=== PATIENT | male | born 1960 | race Caucasian/White ===

== ENCOUNTER 2020-01-18 23:21 | Observation (INO) | payer MEDICARE ==
[2020-01-19] MEDS ORDERED: Fentanyl 100 MCG/2 ML VIAL ONE (00:18)
[2020-01-19 01:20] LABS: Troponin I Less than 0.010 ng/mL (< 0.028)
[2020-01-19 05:11] LABS: Troponin I Less than 0.010 ng/mL (< 0.028)
[2020-01-19 07:52] VITALS: BMI 24.7
[2020-01-19] MEDS ORDERED: Nitroglycerin 0.4 MG TAB (25 Tab Bottle) SL PRN (08:41)
[2020-01-19] MEDS ORDERED: Atorvastatin Calcium 40 MG TAB PO SCH (09:00)
[2020-01-19] MEDS ORDERED: Lisinopril 20 MG TAB PO SCH (09:00)
[2020-01-19] MEDS ORDERED: Carvedilol 25 MG TAB PO SCH (09:00)
[2020-01-19] MEDS ORDERED: Aspirin 81 mg Enteric Coated Tablet PO SCH (09:00)
[2020-01-19 09:02] LABS: Hemoglobin 13.4 g/dL (14.0-18.0); Mean Corpuscular HGB CONC 32.9 g/dL (32.0-36.0); Mean Corpuscular Hemoglobin 30.6 pg (27.0-31.0); Mean Platelet Volume 6.7 fL (7.4-10.4); Platelet Count 313 thou/uL (130-400); RBC Distribution Width 12.2 % (11.5-14.5); Red Blood Cell (RBC) Count 4.38 mill/uL (4.70-6.10); White Blood Cell (WBC) Count 8.7 thou/uL (4.8-10.8)
[2020-01-19] MEDS: Gabapentin 300 MG CAP PO SCH ×2 (09:18→12:51)
[2020-01-19] MEDS: oxyCODONE 5 MG TAB PO PRN ×2 (09:19→13:35)
[2020-01-19 09:20] LABS: Anion Gap 11 mmol/L (10-20); BUN (Urea Nitrogen) 26 mg/dL (8.4-25.7); Calc. Creatinine Clearance 110 mL/min (70-130); Calcium 8.5 mg/dL (7.8-10.44); Carbon Dioxide 26 mmol/L (22-29); Chloride 106 mmol/L (98-107); Estimated GFR-MDRD Greater than 90; Glucose 90 mg/dL (70-105); Potassium 3.9 mmol/L (3.5-5.1); Sodium 139 mmol/L (136-145)
[2020-01-19 09:51] LABS: Band 2 % (5-11); Eosinophils 4 % (0-10); Lymphocytes 23 % (21-51); MDiff Complete? YES; Monocytes 5 % (0-10); Neutrophil 66 % (42-75); RBC Morphology Normal
--- NOTE | 2020-01-19 12:47 | NM ---
Radionucleotide stress and rest myocardial perfusion scan with CT attenuation correction and SPECT im aging Left ventricular wall motion evaluation and ejection fraction HISTORY: Chest pain. Prior [place]. FINDINGS: Adenosine protocol. Very heterogeneous uptake of radiotracer throughout the left ventricula r myocardium. A large area of prominently diminished radiotracer uptake involves the septal wall, extending to the anterior and inferior alamo, on the stress images. Rest images show the defect to be at least as large. No significant reversibility. QGS analysis of gated SPECT images shows diminished motion and thickening of the septum extending to the anterior and inferior alamo. Ejection fraction calculated at 50%. IMPRESSION: Large area of scar involving the septum with no scintigraphic evidence of ongoing ischemi a. Borderline LVEF of 50%.
--- NOTE | 2020-01-19 14:15 | HP ---
CHIEF COMPLAINT: Chest pain. HISTORY OF PRESENT ILLNESS: This is a 59-year-old male with past medical history of hypertension; hyperlipidemia; coronary artery disease, status post stent placement 10 years ago; history of gastroesophageal reflux disease with Simpson esophagus; and history of neck surgery, who presented to the emergency department with complaints of central chest pressure radiating to his left arm and left neck that started yesterday and persisted until his arrival to the ER. The patient received nitroglycerin, which eased up the pain, but did not eliminate it completely. The patient denies shortness of breath, palpitations, dizziness, or syncope. He denies any cardiac workup or stress test within the past year. REVIEW OF SYSTEMS: Negative except as noted in HPI. PAST MEDICAL HISTORY: Restless legs syndrome; Simpson esophagus with GERD; coronary artery disease, status post stent; hyperlipidemia; and hypertension. PAST SURGICAL HISTORY: Neck, shoulder, and hip surgeries. SOCIAL HISTORY: The patient drinks socially, smokes cannabis, and does not smoke any cigarettes. FAMILY HISTORY: Negative for personal history to current presentation. PHYSICAL EXAMINATION: GENERAL: The patient is alert and oriented x3. HEENT: Head is normocephalic and atraumatic. Extraocular muscles are intact. Pupils are equal and reactive to light. NECK: Supple. HEART: Revealed normal S1 and S2. Regular rate and rhythm. No murmurs, rubs, or gallops. LUNGS: Clear lung chou bilaterally. ABDOMEN: Soft, nontender, and nondistended. Bowel sounds are positive. NEUROLOGIC: Revealed normal cranial nerves 2 through 12 and unremarkable motor and sensory examination. LABORATORY DATA: Two troponins were drawn and were negative. EKG showed right bundle-branch block with lateral T-wave inversions without ST-T elevations or depressions. Chest x-ray was clear. IMPRESSION AND PLAN: 1. Chest pain, rule out acute coronary syndrome. The patient with history of coronary artery disease and risk factors with hypertension and hyperlipidemia. His HEART score is 6, correlating with the risk of MACE of 12% to 16.6%. Start aspirin 162 mg, atorvastatin 40 mg orally daily, carvedilol 25 mg orally twice daily, lisinopril 20 mg orally daily in addition to nitroglycerin 0.4 mg sublingual q.5 minutes as needed for pain. The patient will undergo a nuclear stress test today. 2. Hypertension. 3. Hyperlipidemia. 4. Restless legs syndrome. 5. Simpson esophagus. Job ID: [id number]
[2020-01-19] MEDS ORDERED: ADENOSINE 60 MG/20 ML VIAL ONE (15:25)
[2020-01-19 16:21] VITALS: BP 114/74; TEMP 98
--- NOTE | 2020-01-19 17:21 | CON ---
DATE OF CONSULTATION: 01/19/2020 INDICATIONS FOR CONSULTATION: A 59-year-old gentleman with history of coronary artery disease, who has undergone angioplasty and stent placement in the past about 2009. He then underwent a repeat cardiac catheterization, I believe, a couple years later, and apparently, the stent was patent, but he did have some plaque in another vessel according to the . We do not have those records. He has a cardiac catheterization and further angioplasty was done either in [place] or [place]. We do not have those records available. According to his family, he also has a history of Simpson esophagus, esophageal disease, and has gastroesophageal reflux disease. According to the , he has had about 40 hospitalizations or ER visits within the last 5 years due to similar pain that he presented with today with chest discomfort and also some pain radiating down to the left arm. His 1st myocardial infarction occurred after he had eaten a meal, this was back in 2009. He walked outside and he said he just went to his knees, felt dizzy, and went to his knees, nauseated, and was taken to the emergency room, was found to have a myocardial infarction. It is possible he did have some ventricular tachycardia, it is uncertain of what happened, but he did undergo what sounds as if he did have an angioplasty and stent placed at that time. After evaluation of the stress test, which was performed today, there is no evidence of ischemia and the cardiac enzymes are unremarkable to indicate any evidence of ischemia or myocardial infarction. It is quite possible he did have a stent in the distal left anterior descending artery as there appears to be a scar in the septal area and most likely the distal anterior wall, which also involves and wraps around to the inferior wall of the left ventricle. At this time, he still continues to have some mild discomfort in his arm, but otherwise as he wants to go home and I suggest that he could have further evaluation as an outpatient since this has been an ongoing problem for years, he also needs to see a transit coach operator, I believe he is set up some type of an appointment already with [facility], but may change that to a different facility. Otherwise, he has been doing relatively well and has had no significant changes. He has had no significant shortness of breath or any other associated abnormalities with the chest discomfort. He describes it at times as being sharp, but then also dull pain and then certainly radiating to the left arm. He continues to have some mild left arm discomfort. However, he has had some injuries in the past. He has had spina bifida, which required repair. As he has some fractures, he has also had some neck fractures, so it is unclear whether or not some of this pain in the arm may not be due to some radiation, due to nerve problems. PAST MEDICAL HISTORY: Significant for: 1. Simpson's esophagus. 2. Gastroesophageal reflux disease. 3. Coronary artery disease status post stent placement. 4. Hypertension. 5. Dyslipidemia. 6. He also has some history of restless legs syndrome. 7. He has had multiple back surgeries. 8. He has had neck surgery also. 9. Had hip surgery, he apparently fell and broke his hip. SOCIAL HISTORY: He occasionally smokes marijuana. He drinks socially. He has no history in the past. No significant cigarette abuse. FAMILY HISTORY: Unremarkable to the present situation. REVIEW OF SYSTEMS: Mainly is negative except what is noted in the history of present illness. He has moved here. He still stays at home. He subsequently is disabled. He takes care of things in the house and does not have any significant discomfort in doing so, but does occasionally become short of breath. PHYSICAL EXAMINATION: GENERAL: A well-developed, well-nourished gentleman who at this time is in no acute distress. He is very pleasant. He is oriented. VITAL SIGNS: Stable. He is afebrile. Heart rate is in the 60s to 70s and it shows a sinus rhythm, respiratory rate is about 16, and blood pressure is 124/73. HEENT: Shows the head to be normocephalic and atraumatic. NECK: Carotid pulses are present. Did not hear any bruits. CHEST: Clear to auscultation without rales, rhonchi, or wheezing. CARDIOVASCULAR: Regular rate and rhythm. I did not hear any significant S3 or S4. There were no significant murmurs, heaves, thrills, bruits, or rubs. ABDOMEN: Soft and nontender. Positive bowel sounds are present. EXTREMITIES: No clubbing, cyanosis, or edema. Pedal pulses are present. Radial pulses are present. NEUROLOGIC: He appears to be intact. DIAGNOSTIC STUDIES: His EKG showed a sinus rhythm with a right bundle-branch block with some nonspecific T-wave inversions, which may be due to the right bundle-branch block, but otherwise is unremarkable. His stress test did show evidence of a previous scar, most likely due to the previous myocardial infarction, but no evidence of ischemia. His echocardiogram was ordered, but is still pending, but ejection fraction by nuclear study was in the 50% to 55% range, which would not be bad considering the patient had a previous myocardial infarction. IMPRESSION: Elderly gentleman with history of coronary artery disease and multiple episodes of chest discomfort. I have given him the option to proceed with cardiac catheterization versus of being followed up as an outpatient and to see if the pain persist. He actually desires to go home and will see me in the office. He is very aware of his situation and also the pain. He has had this pain for many years now on and off and there does not appear to be any significant change from his previous admissions. Also, one of the issues was he had ran out of his nitroglycerin or actually had became washed in the washing machine and he did not have any further nitroglycerin. Some of his pain has been relieved by nitroglycerin in the past, but obviously some smooth muscle also has relieved by nitroglycerin, which may be some of esophageal spasm. I will make sure that he has his nitroglycerin prior to being discharged. Otherwise, for his other medical problems, which he dealt with by the primary care service, I would be happy to see the patient back in the office, but would advise he go home with the nitroglycerin and follow up as an outpatient. Since the stress test is negative and enzymes also have remained negative, he does not appear to be anemic and renal function also is normal. Job ID: [id number]
[2020-01-19] MEDS ORDERED: rOPINIRole HCl 0.5 MG TAB PO SCH (21:00)
--- NOTE | 2020-01-20 02:37 | DIS ---
DATE OF ADMISSION: 01/19/2020 DATE OF DISCHARGE: 01/19/2020 HISTORY OF PRESENT ILLNESS AND HOSPITAL COURSE: This is a 59-year-old male with past medical history of hypertension, hyperlipidemia, coronary artery disease, status post stent placement 10 years ago, and history of GERD with Simpson's esophagus, who presented to the emergency department with complaints of central chest pain radiating to his left arm and left neck area. His initial EKG revealed T-wave inversions laterally and his initial troponins were unremarkable. Cardiology Service consulted and recommended a stress test, which was performed showing no evidence of reversible ischemia. The patient also underwent echocardiogram with the reading pending at the time of discharge. DISCHARGE DIAGNOSES: 1. Chest pain. 2. Hypertension. 3. Hyperlipidemia. 4. Restless legs syndrome. 5. Simpson's esophagus. DISCHARGE MEDICATIONS: 1. Sublingual nitroglycerin 0.4 mg q.5 minutes p.r.n. for chest pain, maximum 3 doses. 2. Aspirin 81 mg orally twice daily. 3. Atorvastatin 40 mg orally daily. 4. Carvedilol 25 mg orally twice daily. 5. Gabapentin 300 mg orally 4 times a day. 6. Lisinopril 20 mg orally daily. 7. Ropinirole 0.4 mg orally nightly. 8. Oxycodone immediate release 10 mg orally q.4 hours as needed for pain. DISCHARGE INSTRUCTIONS: The patient was instructed to follow up with his family doctor within 1 week. Cardiac diet is recommended and exercise as tolerated. Job ID: [id number]
== END 2020-01-19 17:07 | disposition home or self-care (01) ==
LOC: ERS 23:21 → ERHOLD 01-19 00:10 → 2SW 01-19 00:10
PROVIDERS: ADMIT Internal Medicine; ATTEND Internal Medicine
DX: R07.89 Other chest pain (principal); I10 Essential (primary) hypertension; E78.5 Hyperlipidemia, unspecified; G25.81 Restless legs syndrome; K22.70 Barrett's esophagus without dysplasia; I25.10 Atherosclerotic heart disease of native coronary artery without angina pectoris; K21.9 Gastro-esophageal reflux disease without esophagitis; I25.2 Old myocardial infarction; F32.9 Major depressive disorder, single episode, unspecified; I45.10 Unspecified right bundle-branch block; Z79.82 Long term (current) use of aspirin; Z79.899 Other long term (current) drug therapy; Z88.8 Allergy status to other drugs, medicaments and biological substances; Z95.5 Presence of coronary angioplasty implant and graft
CPT/HCPCS: 78452; 80048; 84484 ×2; 85007; 85027; 93005; 93017; 93306; 96374; 99285; A9500; G0378 ×2; 36415; J0153; J3010

== ENCOUNTER 2020-01-24 14:47 | Observation (INO) | payer MEDICARE ==
[2020-01-24] MEDS ORDERED: Nitroglycerin 2% Ointment 1 INCH/1 GM Packet ONE (15:05)
[2020-01-24 15:18] LABS: #Eosinphils 0.6 thou/uL (0.0-0.7); #Lymphocytes 2.1 thou/uL (1.20-3.40); #Monocytes 0.7 thou/uL (0.11-0.59); #Neutrophils 5.5 thou/uL (1.40-6.50); %Basophils 0.4 % (0.0-1.0); %Eosinophils 6.2 % (0.0-10.0); %Lymphocytes 23.9 % (21.0-51.0); %Monocytes 7.5 % (0.0-10.0); Hemoglobin 15.4 g/dL (14.0-18.0); Mean Corpuscular HGB CONC 32.8 g/dL (32.0-36.0); Mean Corpuscular Hemoglobin 30.6 pg (27.0-31.0); Mean Corpuscular Volume 93.3 fL (78.0-98.0); Mean Platelet Volume 7.2 fL (7.4-10.4); Platelet Count 368 thou/uL (130-400); RBC Distribution Width 12.2 % (11.5-14.5); Red Blood Cell (RBC) Count 5.04 mill/uL (4.70-6.10); White Blood Cell (WBC) Count 8.9 thou/uL (4.8-10.8)
[2020-01-24] MEDS ORDERED: Ondansetron PF 4 MG/2 ML Vial ONE (15:38)
[2020-01-24] MEDS ORDERED: Morphine 4 MG/ML VIAL ONE (15:38)
[2020-01-24 15:40] LABS: ALT (SGPT) 22 U/L (8-55); AST (SGOT) 21 U/L (5-34); Albumin 4.3 g/dL (3.5-5.0); Alkaline Phosphatase 57 U/L (40-110); Anion Gap 12 mmol/L (10-20); BUN (Urea Nitrogen) 20 mg/dL (8.4-25.7); Bilirubin, Total 0.2 mg/dL (0.2-1.2); Calc. Creatinine Clearance 0 mL/min (70-130); Calcium 9.4 mg/dL (7.8-10.44); Carbon Dioxide 29 mmol/L (22-29); Chloride 101 mmol/L (98-107); Estimated GFR-MDRD 58; Globulin 3.5 g/dL (2.4-3.5); Glucose 104 mg/dL (70-105); Lipase 34 U/L (8-78); Protein, Total 7.8 g/dL (6.0-8.3); Sodium 138 mmol/L (136-145)
--- NOTE | 2020-01-24 15:52 | RAD ---
Chest one view HISTORY: Chest pain. COMPARISON: 01/18/2020. FINDINGS: Cardiac silhouette is magnified by projection. Pulmonary vasculature is unremarkable. Media stinum is midline. Linear scarring at the left base is stable. No lobar consolidation or evidence of pneumothorax. quality assurance monitor chassis leads overlie the chest. IMPRESSION: No active cardiopulmonary abnormalities are demonstrated.
[2020-01-24] MEDS ORDERED: Ondansetron PF 4 MG/2 ML Vial IVP PRN (16:27)
[2020-01-24] MEDS ORDERED: Ondansetron ODT 4 MG TAB PO PRN (16:27)
[2020-01-24] MEDS ORDERED: Acetaminophen 325 MG TAB PO PRN (16:27)
[2020-01-24] MEDS ORDERED: Senokot S 8.6-50 MG TAB PO PRN (16:27)
[2020-01-24] MEDS ORDERED: oxyCODONE 5 MG TAB PO PRN (16:28)
[2020-01-24] MEDS ORDERED: Nitroglycerin 0.4 MG TAB (25 Tab Bottle) SL PRN (16:28)
[2020-01-24] MEDS ORDERED: Aspirin Chewable 81 MG TAB ONE (18:50)
[2020-01-24 19:24] LABS: Troponin I Less than 0.010 ng/mL (< 0.028)
[2020-01-24 20:03] VITALS: BMI 25.7
[2020-01-24] MEDS: rOPINIRole HCl 0.5 MG TAB PO SCH (20:51)
[2020-01-24] MEDS: Gabapentin 300 MG CAP PO SCH ×2 (20:52)
[2020-01-24] MEDS: Carvedilol 25 MG TAB PO SCH (20:52)
[2020-01-24 22:22] LABS: Troponin I Less than 0.010 ng/mL (< 0.028)
[2020-01-24] MEDS ORDERED: hydrALAZINE 20 MG/ML VIAL SLOW IVP PRN (22:27)
[2020-01-24] MEDS ORDERED: Acetaminophen 500 MG TAB PO PRN (22:27)
[2020-01-25] MEDS: oxyCODONE 5 MG TAB PO SCH ×6 (01:02→20:25)
--- NOTE | 2020-01-25 01:41 | HP ---
PRIMARY CARE PROVIDER: Dr. Chandler Mercer. PRIMARY VARNISH FILTERER: Dr. Shawn Mckinley. CHIEF COMPLAINT: Chest pain. HISTORY OF PRESENT ILLNESS: This is a 59-year-old male, who presents to [facility] Emergency Department complaining of recurrent chest pain in the context of known coronary artery disease, status post cardiac stent placement. The patient was recently evaluated on the observation unit on 01/19/2020 for recurrent chest pain, undergoing Cardiolite stress testing showing no evidence of reversible ischemia with evidence of previous scar involving the septum with overall calculated ejection fraction of 50%. 2D transthoracic echocardiogram was also performed on 01/19/2020 showing ejection fraction of 45% to 50% with hypokinesis of the apex, distal septum and distal anterior wall. The patient was slated for outpatient evaluation of his chest pain with consideration for repeat cardiac catheterization due to symptomatology and was discharged home on sublingual nitroglycerin. The patient states he took 2 sublingual nitroglycerin when he had recurrent chest pain with the second dose helping relieve his symptoms. The patient became concerned when the chest pain returned after approximately 40 minutes after the second dose of nitroglycerin and presented to the emergency room. The patient states he has been compliant with his medication regimen. Denied any fever, chills, nausea, vomiting, or diarrhea. The patient does report a history of Simpson's esophagitis with serial surveillance by the GI Service. The patient initially rated his chest pain as 8/10, constant and centrally located. In the emergency room, the patient underwent general evaluation including serial cardiac biomarkers, which were negative x2. EKG showed sinus mechanism with stable complete right bundle branch block pattern. No acute or dynamic ST-T wave changes were noted. The patient received morphine sulfate, transdermal nitroglycerin, Zofran, and intravenous normal saline x1 L. PAST MEDICAL HISTORY: 1. Coronary artery disease, on chronic aspirin therapy. 2. Restless legs syndrome. 3. Simpson's esophagitis. 4. Status post myocardial infarction with cardiac stent placement. 5. Hyperlipidemia. PAST SURGICAL HISTORY: 1. Status post cervical spine surgery. 2. Status post shoulder surgery x6. 3. Status post right hip fracture. 4. Status post carpal tunnel release. 5. Status post bilateral inguinal hernia repair. 6. Status post cardiac stent placement. CURRENT MEDICATIONS: 1. Enteric-coated aspirin 81 mg p.o. b.i.d. 2. Lipitor 40 mg p.o. at bedtime. 3. Carvedilol 25 mg p.o. b.i.d. 4. Gabapentin 600 mg p.o. b.i.d. 5. Lisinopril 20 mg p.o. daily. 6. Oxycodone immediate release 10 mg p.o. q.4 hours p.r.n. pain. 7. Requip 0.5 mg p.o. at bedtime. 8. Venlafaxine extended release 150 mg p.o. daily. 9. Nitroglycerin 0.4 mg sublingually q.5 minutes p.r.n. chest pain. ALLERGIES: FENTANYL AND QUININE. FAMILY HISTORY: Positive for hypertension and coronary artery disease. SOCIAL HISTORY: Occasional marijuana use. Social alcohol use. No cigarettes. Functional of all activities of daily living. Resides in [place], [place]. and accompanied by his in the hospital. REVIEW OF SYSTEMS: CONSTITUTIONAL: Negative for weight loss or gain, ability to conduct usual activities. SKIN: Negative for rash, itching. EYES: Negative for double vision, pain. ENT/MOUTH: Negative for nose bleeding, neck stiffness, pain, tenderness. CARDIOVASCULAR: Negative for palpitations, dyspnea on exertion, orthopnea. RESPIRATORY: Negative for shortness of breath, wheezing, cough, hemoptysis, fever or night sweats. GASTROINTESTINAL: Negative for poor appetite, abdominal pain, heartburn, nausea, vomiting, constipation, or diarrhea. GENITOURINARY: Negative for urgency, frequency, dysuria, nocturia. MUSCULOSKELETAL: Negative for pain, swelling. NEUROLOGIC/PSYCHIATRIC: Negative for anxiety, depression. ALLERGY/IMMUNOLOGIC: Negative for skin rash, bleeding tendency. Otherwise negative except as stated per HPI. PHYSICAL EXAMINATION: VITAL SIGNS: On admission, blood pressure 116/74, pulse 58, respiratory rate 20, temperature 98.4 degrees Fahrenheit, O2 saturation 96% on room air. GENERAL APPEARANCE: This is a 59-year-old male, alert and oriented x3, pleasant, responsive, in no acute distress. HEENT: Pupils are equal, round, reactive to light and accommodation. Extraocular muscles are intact. No scleral icterus. No conjunctival injection. Nares patent. OP is clear. Teeth in good repair. NECK: Supple. No cervical adenopathy. No thyromegaly. No carotid bruits. No JVD appreciated. Cervical spine with full active and passive range of motion. No meningeal signs noted. CHEST: Lungs are clear to auscultation bilaterally. CARDIOVASCULAR: S1, S2 without noted murmur, rub, or gallop. ABDOMEN: Rounded, soft, nontender, and nondistended. Bowel sounds are positive in all 4 quadrants. There is no hepatosplenomegaly. No abdominal bruits. No rebound or guarding appreciated. EXTREMITIES: Warm and dry with fair turgor. No clubbing, cyanosis, or asymmetric edema appreciated. Pulses palpable distally at the dorsalis pedis, posterior tibial, and popliteal arteries bilaterally. Capillary refill less than 2 seconds. NEUROLOGIC: Cranial nerves 2 through 12 are grossly intact. No focal or lateralizing signs appreciated. PERTINENT LABORATORY AND X-RAY FINDINGS: Complete metabolic profile within normal limits. Troponin I negative x2. CBC within normal limits. Portable chest x-ray dated 01/24/2020 showed no acute cardiopulmonary process. EKG dated 01/24/2020 by my interpretation shows a sinus mechanism with heart rates in the 60s. Attenuated R-waves noted in the precordial leads. Right bundle-branch block pattern noted. Normal axis. No acute ST-T wave changes appreciated. ASSESSMENT AND PLAN: 1. Chest pain. The patient will be observed on the telemetry unit. We will consult Cardiology Service for consideration of cardiac catheterization given the patient's history of recurrent chest pain and concern for angina. Continue aspirin 81 mg b.i.d. Serial troponin I. Nitroglycerin p.r.n. chest pain. 2. Coronary artery disease. Continue management as outlined in #1. Continue Lipitor 40 mg daily. Coreg 25 mg b.i.d. 3. Hypertension. Resume home antihypertensive regimen and monitor clinical response. Hydralazine p.r.n. IV. 4. Gastroesophageal reflux disease. Continue Pepcid 20 mg p.o. b.i.d. 5. Hyperlipidemia. Continue Lipitor 40 mg at bedtime. 6. Prophylaxis. SCDs while in bed. Pepcid 20 mg p.o. b.i.d.. CODE STATUS: Full. Surrogate medical decision maker is the patient's spouse. Job ID: [id number]
[2020-01-25 05:24] LABS: Anion Gap 11 mmol/L (10-20); BUN (Urea Nitrogen) 21 mg/dL (8.4-25.7); Calc. Creatinine Clearance 100 mL/min (70-130); Calcium 8.6 mg/dL (7.8-10.44); Carbon Dioxide 26 mmol/L (22-29); Chloride 105 mmol/L (98-107); Estimated GFR-MDRD Greater than 90; Glucose 94 mg/dL (70-105); Potassium 3.7 mmol/L (3.5-5.1); Sodium 138 mmol/L (136-145)
[2020-01-25 05:28] LABS: Eosinophils 6 % (0-10); Hemoglobin 13.4 g/dL (14.0-18.0); Lymphocytes 38 % (21-51); MDiff Complete? YES; Mean Corpuscular HGB CONC 32.7 g/dL (32.0-36.0); Mean Corpuscular Hemoglobin 30.5 pg (27.0-31.0); Mean Corpuscular Volume 93.1 fL (78.0-98.0); Monocytes 6 % (0-10); Neutrophil 50 % (42-75); Platelet Count 311 thou/uL (130-400); Platelet Morphology Comment Appears Adequate; RBC Distribution Width 12.1 % (11.5-14.5); White Blood Cell (WBC) Count 8.5 thou/uL (4.8-10.8)
--- NOTE | 2020-01-25 08:01 | PDOC.CPN ---
- Subjective Date: 01/25/20 Time: 08:03 - Objective Allergies/Adverse Reactions: Allergies Allergy/AdvReac Type Severity Reaction Status Date / Time fentanyl [From Duragesic] Allergy Nausea Verified 01/24/20 22:06 quinine Allergy Nausea Verified 01/24/20 22:06 Visit Medications: Current Medications Acetaminophen (Tylenol) 1,000 mg PO Q6H PRN PRN Reason: Mild Pain (1-3) Aspirin (Ecotrin) 325 mg PO DAILY [facility] Atorvastatin Calcium (Lipitor) 40 mg PO HS [facility] Carvedilol (Coreg) 25 mg PO BID [facility] Last Admin: 01/24/20 20:52 Dose: 25 mg Famotidine (Pepcid) 20 mg PO BID [facility] Gabapentin (Neurontin) 600 mg PO BID [facility] Hydralazine HCl (Apresoline) 10 mg SLOW IVP Q4H PRN PRN Reason: SBP > 180 and HR < 70 Lisinopril (Zestril) 20 mg PO DAILY [facility] Nitroglycerin (Nitrostat) 0.4 mg SL Q5MIN PRN PRN Reason: Chest Pain Ondansetron HCl (Zofran Odt) 4 mg PO Q6H PRN PRN Reason: Nausea/Vomiting Ondansetron HCl (Zofran) 4 mg IVP Q6H PRN PRN Reason: Nausea/Vomiting Oxycodone HCl (Oxycodone Ir) 10 mg PO Q4HR [facility] Last Admin: 01/25/20 05:04 Dose: 10 mg Ropinirole HCl (Requip) 0.5 mg PO [facility] Last Admin: 01/24/20 20:51 Dose: 0.5 mg Senna/Docusate Sodium (Senokot S) 2 tab PO BIDPRN PRN PRN Reason: Constipation Venlafaxine HCl (Effexor Xr) 150 mg PO DAILY [facility] Vital Signs & Weight: Vital Signs Temp Pulse Resp BP Pulse Ox 01/25/20 05:04 97.6 F 71 18 116/79 96 01/24/20 20:20 98.4 F 58 L 20 116/74 96 Weight 164 lb 1.6 oz - Physical Exam General: alert & oriented x3 HEENT: mucus membranes moist Neck: supple neck Cardiac: regular rate and rhythm, S1/S2 Lungs: clear to auscultation Neuro: cranial nerve 2-12 intact Abdomen: unremarkable - Labs Result Diagrams: 01/25/20 04:37 01/25/20 04:37 Troponin/CKMB Troponin I Less than 0.010 ng/mL (< 0.028) 01/24/20 21:49 - Telemetry Sinus rhythms and dysrhythmias: sinus rhythm - Assessment/Plan Assessment/Plan: 1. CP - no ECG changes and trop negative x3; Per last admission, the pt was recommended to have cath by Dr Mckinley. He is willing to have the procedure this time. 2. CAD with s/p stent about 8 years ago in [place] - on Coreg, Lisinopril, ASA and Lipitor 3. HTN 4. HLD 5. Hx of Simpson's esphagus and GERD MAR reviewed * Echo on 01/19/2020 with EF 45-50%, hypokinetic apex, distal septum and distal anterior wall; mild-mod LAE, trace MR, and mild TR * Stress test on 01/19/2020 with no ischemia Pt. seen and eval. by me. I agree with the A/P by the HARDBOARD PRESS OPERATOR. Due to his history of CAD , continued chest pain and multiple hospitalizations despite a negative stress test I suggest he undergo a cardiac cath to definitively evaluate the coronary arteries. [email or web address]
[2020-01-25] MEDS ORDERED: Iopamidol 370 76% 100 ML VIAL ONE (08:59)
[2020-01-25] MEDS ORDERED: Aspirin 81 mg Enteric Coated Tablet PO SCH (09:00)
[2020-01-25] MEDS ORDERED: Communication Order-Pharmacy FS SCH (09:15)
[2020-01-25] MEDS: Carvedilol 25 MG TAB PO SCH ×2 (09:58→20:24)
[2020-01-25] MEDS: Venlafaxine HCl XR 150 MG CAP PO SCH (09:58)
[2020-01-25] MEDS: Famotidine 20 MG TAB PO SCH ×2 (09:58→20:25)
[2020-01-25] MEDS: Aspirin 325 mg Enteric Coated Tablet PO SCH (09:58)
[2020-01-25] MEDS: Lisinopril 20 MG TAB PO SCH (09:59)
[2020-01-25] MEDS: Gabapentin 300 MG CAP PO SCH ×2 (09:59→20:24)
[2020-01-25] MEDS: Sodium Chloride 0.9% 1,000 ML IV SCH ×2 (11:01→22:03)
[2020-01-25] MEDS ORDERED: Nitroglycerin 100MG/250ML BOT 250 ML ONE (11:53)
[2020-01-25] MEDS ORDERED: Heparin 10,000 UNITS/1 ML VIAL ONE (11:53)
[2020-01-25] MEDS ORDERED: Verapamil 5 MG/2 ML VIAL ONE (11:53)
[2020-01-25] MEDS ORDERED: Nitroglycerin 0.4 MG TAB (25 Tab Bottle) SL PRN (13:21)
[2020-01-25] MEDS ORDERED: Sodium Chloride 0.9% 200 ML IV PRN (13:21)
[2020-01-25] MEDS ORDERED: Acetaminophen/Codeine 30-300mg Tablet PO PRN ×2 (13:21)
--- NOTE | 2020-01-25 19:28 | PDOC.HOSPP ---
- Subjective Encounter Date: 01/25/20 Encounter Time: 10:00 Subjective: no overnight events. This morning, chest pain persists though improved in intensity. No other complaints. Pending left heart catheterization. - Objective Vital Signs & Weight: Vital Signs (12 hours) Temp Pulse Resp BP Pulse Ox 01/25/20 15:08 98.5 F 71 20 130/76 97 01/25/20 11:40 98.8 F 57 L 18 134/83 95 01/25/20 07:31 97.5 F L 60 18 149/78 H 96 Weight Admit Weight 164 lb Weight 164 lb 1.6 oz I&O: 01/24/20 01/25/20 01/26/20 06:59 06:59 06:59 Intake Total 930 Output Total 600 Balance 330 Result Diagrams: 01/25/20 04:37 01/25/20 04:37 Hospitalist ROS - Review of Systems Constitutional: denies: fever, chills, sweats, weakness, malaise, other Respiratory: denies: cough, dry, shortness of breath, hemoptysis, SOB with excertion, pleuritic pain Cardiovascular: reports: chest pain. denies: palpitations, orthopnea, paroxysmal noc. dyspnea, edema Gastrointestinal: denies: nausea, vomiting, abdominal pain, diarrhea Genitourinary: denies: dysuria, frequency, incontinence, hematuria Musculoskeletal: denies: neck pain, shoulder pain, arm pain Neurological: denies: weakness, numbness, incoordination - Medication Medications: Active Medications Generic Name Dose Route Start Last Admin Trade Name Freq PRN Reason Stop Dose Admin Aspirin 325 mg 01/25/20 09:00 01/25/20 09:58 Ecotrin PO 325 mg DAILY DALE Administration Carvedilol 25 mg 01/24/20 21:00 01/25/20 09:58 Coreg PO 25 mg BID DALE Administration Famotidine 20 mg 01/25/20 09:00 01/25/20 09:58 Pepcid PO 20 mg BID DALE Administration Gabapentin 600 mg 01/25/20 09:00 01/25/20 09:59 Neurontin PO 600 mg BID DALE Administration Sodium Chloride 1,000 mls @ 75 mls/hr 01/25/20 10:30 01/25/20 11:01 Normal Saline 0.9% IV 1,000 mls .[id number] DALE Administration Lisinopril 20 mg 01/25/20 09:00 01/25/20 09:59 Zestril PO 20 mg DAILY DALE Administration Oxycodone HCl 10 mg 01/25/20 01:00 01/25/20 18:14 Oxycodone Ir PO 10 mg Q4HR DALE Administration Ropinirole HCl 0.5 mg 01/24/20 21:00 01/24/20 20:51 Requip PO 0.5 mg HS DALE Administration Venlafaxine HCl 150 mg 01/25/20 09:00 01/25/20 09:58 Effexor Xr PO 150 mg DAILY DALE Administration - Exam General Appearance: NAD, awake alert Eye: PERRL, anicteric sclera ENT: normocephalic atraumatic, no oropharyngeal lesions, moist mucosa Neck: no JVD Heart: RRR, no murmur, no gallops, normal peripheral pulses Respiratory: CTAB, no wheezes, no rales, no ronchi, normal chest expansion, no tachypnea Gastrointestinal: soft, non-tender, non-distended, normal bowel sounds Extremities: no edema Neurological: cranial nerve grossly intact Psychiatric: normal affect, normal behavior, A&O x 3 Hosp A/P - Plan #chest pain -troponin -ve -EKG showing no signs of new ishcemia -however, persistent pain and significant cardiac history; patient willing to undergo LHC Plan: -LHC -started on IVF for nephroprotectiion pending contrast administration -follow up with cardiology after LHC for possible discharge 2. Coronary artery disease. Continue same management 3. Hypertension. continue home antihtn 4. Gastroesophageal reflux disease. Continue Pepcid 5. Hyperlipidemia. Continue Lipitor 40 mg at bedtime. 6. Prophylaxis. SCDs while in bed. Pepcid 20 mg p.o. b.i.d..
[2020-01-25] MEDS: rOPINIRole HCl 0.5 MG TAB PO SCH (20:24)
[2020-01-25] MEDS ORDERED: Atorvastatin Calcium 40 MG TAB PO SCH (21:00)
[2020-01-26] MEDS: oxyCODONE 5 MG TAB PO SCH ×4 (01:01→13:10)
[2020-01-26] MEDS: Famotidine 20 MG TAB PO SCH (09:00)
[2020-01-26] MEDS: Aspirin 325 mg Enteric Coated Tablet PO SCH (09:00)
[2020-01-26] MEDS: Carvedilol 25 MG TAB PO SCH (09:00)
[2020-01-26] MEDS: Gabapentin 300 MG CAP PO SCH (09:01)
[2020-01-26] MEDS: Venlafaxine HCl XR 150 MG CAP PO SCH (09:01)
[2020-01-26] MEDS: Lisinopril 20 MG TAB PO SCH (09:01)
--- NOTE | 2020-01-26 09:32 | PDOC.CPN ---
- Subjective Date: 01/26/20 Time: 09:32 Interval history: The pt seen and examined. No overnight events. No cardiac complaints. - Objective Allergies/Adverse Reactions: Allergies Allergy/AdvReac Type Severity Reaction Status Date / Time fentanyl [From Duragesic] Allergy Nausea Verified 01/24/20 22:06 quinine Allergy Nausea Verified 01/24/20 22:06 Visit Medications: Current Medications Acetaminophen (Tylenol) 1,000 mg PO Q6H PRN PRN Reason: Mild Pain (1-3) Acetaminophen/Codeine Phosphate (Tylenol #3) 1 tab PO Q4H PRN PRN Reason: Mild Pain (1-3) Acetaminophen/Codeine Phosphate (Tylenol #3) 2 tab PO Q4H PRN PRN Reason: Moderate Pain (4-6) Aspirin (Ecotrin) 325 mg PO DAILY [facility] Last Admin: 01/26/20 09:00 Dose: 325 mg Atorvastatin Calcium (Lipitor) 40 mg PO HS [facility] Last Admin: 01/25/20 20:25 Dose: 40 mg Carvedilol (Coreg) 25 mg PO BID [facility] Last Admin: 01/26/20 09:00 Dose: 25 mg Famotidine (Pepcid) 20 mg PO BID [facility] Last Admin: 01/26/20 09:00 Dose: 20 mg Gabapentin (Neurontin) 600 mg PO BID [facility] Last Admin: 01/26/20 09:01 Dose: 600 mg Hydralazine HCl (Apresoline) 10 mg SLOW IVP Q4H PRN PRN Reason: SBP > 180 and HR < 70 Sodium Chloride (Normal Saline 0.9%) 1,000 mls @ 75 mls/hr IV .[id number] [facility] Last Admin: 01/25/20 22:03 Dose: 1,000 mls Sodium Chloride (Normal Saline 0.9%) 200 mls @ 0 mls/hr IV ONE PRN PRN Reason: SBP < 90 Stop: 01/27/20 13:22 Lisinopril (Zestril) 20 mg PO DAILY [facility] Last Admin: 01/26/20 09:01 Dose: 20 mg Nitroglycerin (Nitrostat) 0.4 mg SL Q5MIN PRN PRN Reason: Chest Pain Ondansetron HCl (Zofran Odt) 4 mg PO Q6H PRN PRN Reason: Nausea/Vomiting Ondansetron HCl (Zofran) 4 mg IVP Q6H PRN PRN Reason: Nausea/Vomiting Oxycodone HCl (Oxycodone Ir) 10 mg PO Q4HR [facility] Last Admin: 01/26/20 09:01 Dose: 10 mg Ranolazine (Ranexa) 500 mg PO BID [facility] Last Admin: 01/26/20 09:01 Dose: 500 mg Ropinirole HCl (Requip) 0.5 mg PO HS [facility] Last Admin: 01/25/20 20:24 Dose: 0.5 mg Senna/Docusate Sodium (Senokot S) 2 tab PO BIDPRN PRN PRN Reason: Constipation Venlafaxine HCl (Effexor Xr) 150 mg PO DAILY [facility] Last Admin: 01/26/20 09:01 Dose: 150 mg Vital Signs & Weight: Vital Signs Temp Pulse Resp BP BP Pulse Ox 01/26/20 09:05 96 01/26/20 09:01 137/82 01/26/20 08:13 99.1 F 01/26/20 07:45 62 14 137/82 96 01/26/20 03:35 98.6 F 56 L 16 128/77 96 01/25/20 23:33 97.7 F 63 18 117/73 96 Admit Weight 164 lb Weight 164 lb 6.4 oz - Physical Exam General: alert & oriented x3 HEENT: mucus membranes moist Neck: supple neck Cardiac: regular rate and rhythm, S1/S2 Lungs: clear to auscultation Neuro: cranial nerve 2-12 intact Abdomen: unremarkable - Labs Result Diagrams: 01/25/20 04:37 01/25/20 04:37 Troponin/CKMB Troponin I Less than 0.010 ng/mL (< 0.028) 01/24/20 21:49 - Telemetry Sinus rhythms and dysrhythmias: sinus rhythm - Assessment/Plan Assessment/Plan: 1. CP - S/p LHC on 01/25/2020 with EF 55-60%, 30-50% stenosis in mid-distal LAD , 30% in Lt Cx after taking off of OM branch, small RCA without stenosis; On Ranexa 2. CAD with s/p stent about 8 years ago in [place] - on Coreg, Lisinopril, ASA and Lipitor 3. HTN 4. 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 The pt will f/u with Dr Mckinley' office in 2 wks. pt. seen and eval. by me. I agree with the A/P by the PRODUCER ARBORIST MANAGER. I will start Vascepa 2 g bid. Chest clear. RRR. . Follow up in my office is 2 weeks with PRODUCER ARBORIST MANAGER. young
--- NOTE | 2020-01-26 11:57 | PDOC.HOSPP ---
- Subjective Encounter Date: 01/26/20 Encounter Time: 11:55 Subjective: Mr. Ba was seentoday in follow-up of chest pain. He is post Cath. He does not have any complaints. - Objective Vital Signs & Weight: Vital Signs (12 hours) Temp Pulse Resp BP BP Pulse Ox 01/26/20 09:05 96 01/26/20 09:01 137/82 01/26/20 08:13 99.1 F 01/26/20 07:45 62 14 137/82 96 01/26/20 03:35 98.6 F 56 L 16 128/77 96 Weight Admit Weight 164 lb Weight 164 lb 6.4 oz I&O: 01/25/20 01/26/20 01/27/20 06:59 06:59 06:59 Intake Total 2686.4 794 Output Total 600 Balance 2086.4 794 Result Diagrams: 01/25/20 04:37 01/25/20 04:37 Hospitalist ROS - Medication Medications: Active Medications Generic Name Dose Route Start Last Admin Trade Name Filomena PRN Reason Stop Dose Admin Aspirin 325 mg 01/25/20 09:00 01/26/20 09:00 Ecotrin PO 325 mg DAILY DALE Administration Atorvastatin Calcium 40 mg 01/25/20 21:00 01/25/20 20:25 Lipitor PO 40 mg HS DALE Administration Carvedilol 25 mg 01/24/20 21:00 01/26/20 09:00 Coreg PO 25 mg BID DALE Administration Famotidine 20 mg 01/25/20 09:00 01/26/20 09:00 Pepcid PO 20 mg BID DALE Administration Gabapentin 600 mg 01/25/20 09:00 01/26/20 09:01 Neurontin PO 600 mg BID DALE Administration Sodium Chloride 1,000 mls @ 75 mls/hr 01/25/20 10:30 01/25/20 22:03 Normal Saline 0.9% IV 1,000 mls .[id number] DALE Administration Lisinopril 20 mg 01/25/20 09:00 01/26/20 09:01 Zestril PO 20 mg DAILY DALE Administration Oxycodone HCl 10 mg 01/25/20 01:00 01/26/20 09:01 Oxycodone Ir PO 10 mg Q4HR DALE Administration Ranolazine 500 mg 01/25/20 21:00 01/26/20 09:01 Ranexa PO 500 mg BID DALE Administration Ropinirole HCl 0.5 mg 01/24/20 21:00 01/25/20 20:24 Requip PO 0.5 mg HS DALE Administration Venlafaxine HCl 150 mg 01/25/20 09:00 01/26/20 09:01 Effexor Xr PO 150 mg DAILY DALE Administration - Exam Eye: PERRL Heart: RRR, no murmur, no gallops, no rubs, normal peripheral pulses Respiratory: CTAB, no wheezes, no rales, no ronchi, normal chest expansion, no tachypnea, normal percussion Gastrointestinal: soft, non-tender, non-distended, normal bowel sounds, no palpable masses, no hepatomegaly Extremities: no cyanosis, no edema Hosp A/P (1) Coronary artery disease Code(s): I25.10 - ATHSCL HEART DISEASE OF [place] CORONARY ARTERY W/O ANG PCTRS Status: Acute (2) Dyslipidemia Code(s): E78.5 - HYPERLIPIDEMIA, UNSPECIFIED Status: Chronic - Plan * CAD cardiac cath results noted * He is stable for discharge home
[2020-01-26 12:03] VITALS: BP 121/76; TEMP 98.8
--- NOTE | 2020-01-27 03:22 | DIS ---
DATE OF ADMISSION: 01/24/2020 DATE OF DISCHARGE: 01/26/2020 PRIMARY CARE PHYSICIAN: Dr. Chandler Mercer. DISCHARGE DISPOSITION: Home. DISCHARGE DIAGNOSES: 1. Coronary artery disease. 2. Dyslipidemia. 3. Hypertension. 4. Gastroesophageal reflux disease. DISCHARGE MEDICATIONS: Include: 1. Ranexa 500 mg p.o. twice daily. 2. Nitrostat 0.4 sublingual p.r.n. 3. Venlafaxine 150 mg extended release p.o. daily. 4. Requip 0.5 mg p.o. at bedtime. 5. Oxycodone extended release 10 mg q.4 as needed. 6. Lisinopril 20 mg daily. 7. Gabapentin 600 mg p.o. twice a day. 8. Carvedilol 25 mg p.o. twice daily. 9. Lipitor 40 mg at bedtime. 10. Aspirin 81 mg b.i.d. The patient had a cardiac catheterization demonstrating some mild coronary artery disease, which was non-flow limiting. There was diffuse disease in the LAD at 30% to 50% and the left circ had 30% stenosis. CODE STATUS: Full code. ALLERGIES: TO FENTANYL AND QUININE. HOSPITAL COURSE: Mr. Ba is a pleasant 59-year-old gentleman, who presented to the emergency room with complaints of chest pain. The full details of which are outlined in the history and physical. Apparently, he was recently evaluated for chest pain and had a Cardiolite stress test, showing no evidence of reversible ischemia. This was back on 01/19/2020. He also had an echo showing mild reduction in his ejection fraction at 45% to 50%. He was apparently discharged at that time and the plan was for him to have an outpatient cardiac catheterization. However, he had resumption of chest pain and presented back to the emergency room. Cardiology was consulted. He underwent cardiac catheterization with the above findings. It was felt his situation was considered best for medical management, and Ranexa was added to his regimen as well as fish oil. He will need to follow up with Dr. Mckinley as instructed and also with Dr. Chandler Mercer in 1 to 2 weeks. Job ID: [id number]
== END 2020-01-26 13:23 | disposition home or self-care (01) ==
LOC: ERS 14:47 → ERHOLD 17:26 → 2SW 19:58
PROVIDERS: ADMIT Internal Medicine; ATTEND Internal Medicine
PROC: 4A023N7 Measurement of Cardiac Sampling and Pressure, Left Heart, Percutaneous Approach (ICD-10-PCS; principal; 2020-01-25)
PROC: B2111ZZ Fluoroscopy of Multiple Coronary Arteries using Low Osmolar Contrast (ICD-10-PCS; 2020-01-25)
DX: I25.10 Atherosclerotic heart disease of native coronary artery without angina pectoris (principal); E78.00 Pure hypercholesterolemia, unspecified; I10 Essential (primary) hypertension; E78.5 Hyperlipidemia, unspecified; G25.81 Restless legs syndrome; I25.2 Old myocardial infarction; K22.70 Barrett's esophagus without dysplasia; K21.9 Gastro-esophageal reflux disease without esophagitis; Z79.82 Long term (current) use of aspirin; Z79.899 Other long term (current) drug therapy; Z88.5 Allergy status to narcotic agent; Z88.8 Allergy status to other drugs, medicaments and biological substances; Z95.5 Presence of coronary angioplasty implant and graft
CPT/HCPCS: 71045; 80048; 80053; 83690; 84484 ×2; 85007; 85025; 85027; 93005; 93458; 94760 ×2; 96361; 96374; 96375; 99285; C1769; G0378 ×3; 36415; 96360; J1644; J2270; J2405; Q9967

== ENCOUNTER 2020-07-20 17:30 | Observation (INO) | payer MEDICARE, OTHER ==
[2020-07-20] MEDS ORDERED: Ondansetron ODT 4 MG TAB PO PRN (19:10)
[2020-07-20] MEDS ORDERED: Acetaminophen 325 MG TAB PO PRN (19:10)
[2020-07-20] MEDS ORDERED: Acetaminophen 650 MG Suppository PR PRN (19:10)
[2020-07-20] MEDS ORDERED: Ondansetron PF 4 MG/2 ML Vial IVP PRN (19:10)
--- NOTE | 2020-07-20 19:38 | PDOC.FPRHP ---
- History of Present Illness Chief Complaint: chest pain History of Present Illness: 59 yo M with a hx of CAD, HTN, HLD, CHF, cathx4, stentx1 who transferred from [place] [facility] for chest pain, nausea, and vomiting that began at 2:30pm. Pain is located in left side of his chest and radiates up the lateral side of his neck. Pain started as a dull, ache and progressed to a sharp, stabbing. He vomiting 3- 4 times and reports profuse sweating. Patient received nitro, nitropaste, and aspirin at [place] [facility] and reports mild relief of his pain, going from a 9/10 to a 6/10. Patient also reports intermittent numbness in his left arm. He does not have pain when he breaths in and out and denies headache, vision changes, SOB, or abdominal pain. - Allergies/Adverse Reactions Allergies Allergy/AdvReac Type Severity Reaction Status Date / Time fentanyl [From Duragesic] Allergy Nausea Verified 07/20/20 21:01 quinine Allergy Nausea Verified 07/20/20 21:01 - Home Medications Medication Instructions Recorded Confirmed Type Aspirin [Adult Low Dose Aspirin EC] 81 mg PO BID 01/19/20 07/20/20 History Atorvastatin Calcium [Lipitor] 40 mg PO HS 01/19/20 07/20/20 History Carvedilol [Coreg] 25 mg PO BID 01/19/20 07/20/20 History Gabapentin 600 mg PO QID 01/19/20 07/20/20 History Lisinopril 20 mg PO DAILY 01/19/20 07/20/20 History Nitroglycerin [Nitrostat] 0.4 mg SL Q5MIN PRN #30 tab 01/19/20 07/20/20 Rx OxyCODONE IR [oxyCODONE HCl] 10 mg PO Q4HR 01/19/20 07/20/20 History Venlafaxine HCl [Venlafaxine HCl 150 mg PO DAILY 01/24/20 07/20/20 History ER] Ranolazine [Ranexa] 500 mg PO BID #60 tab 01/26/20 07/20/20 Rx Icosapent Ethyl [Vascepa] 2 gm PO BID 07/20/20 07/20/20 History Metoclopramide HCl 10 mg PO TID 07/20/20 07/20/20 History Omeprazole 40 mg PO DAILY 07/20/20 07/20/20 History rOPINIRole HCl [Requip] 4 mg PO HS 07/20/20 07/20/20 History - History PMHx: CAD, neuropathy, CHF, HTN, HLD, borderline diabetes, cathx4 (2009, 2012, 2015, 2019), stentx1 (2009) PSHx: stent 2010, R shoulderx6, groin herniax2, umbilical herniax1, carpel tunnel: Lx2 Rx1, replaced 4 vertebrae, back surgeryx4 FHx: Mom and Dad - multiple MIs and heart disease Social: never smoker, denies alcohol use, used to smoke marijuana but hasn't in past 6 months. Denies drug use. Todd, from [place], moved to [place] ('s hometown) 6 months ago. - Review of Systems General: denies: fever/chills Eyes: denies: vision changes ENT: denies: nasal congestion Respiratory: reports: shortness of breath. denies: cough, congestion Cardiovascular: reports: chest pain. denies: palpitation, edema Gastrointestinal: reports: nausea, vomiting. denies: diarrhea, constipation, abdominal pain Genitourinary: reports: dysuria - Vital signs BP: 122/93 HR: 55 RR: 22 Tmax: 98.4 Pox: 97% on RA Wt: 73kg - Physical Exam Constitutional: NAD, awake, alert and oriented HEENT: normocephalic and atraumatic, EOMI, conjunctiva clear, no scleral icterus , grossly normal vision, grossly normal hearing Neck: FROM Chest: no-tender to palpation Heart: RRR, no murmurs/rubs/gallops, pulses present, no edema Lungs: CTAB, no respiratory distress, good air movement, no wheezing Abdomen: soft, non-tender, bowel sounds present Musculoskeletal: normal structure, normal tone, ROM grossly normal Psychiatric: normal mood and affect, good judgment and insight, intact recent and remote memory FMR H&P: Results - Labs Lab results: CBC, BMP within normal limits BNP 47.6 trop 0.017, 0.014 - EKG Interpretation EKG: R bundle branch block, sinus bradycardia - Radiology Interpretation Chest x-ray Status: report reviewed by me (normal) FMR H&P: A/P - Plan 59 yo M with a hx of CAD, HTN, HLD, CHF, cathx4, stentx1 who transferred from [place] [facility] for chest pain, nausea, and vomiting Chest pain suspected 2/2 to Coronary Artery Disease Extensive history including multiple caths and a stent EKG showed no signs of ischemia, CXR normal Trops 0.017 --> 0.014 Will trend trops Cardiology consult - Dr. Mckinley hold betablocker NPO @ midnight in case Cards wants to stress or go to cath HTN Has been wnl Continue home medications HLD Continue home medications CHF ECHO 01/2020: EF 45-50% BNP wnl No signs of fluid overload Continue home medications Neuropathy Continue home medications GERD Continue home medications Chronic pain History of multiple MSK surgeries Continue home medications DVTPPx: lovenox PCP: Howie Diet: HH, NPO @ midnight Code: FULL Dispo: eLOS <48 hours pending resolution of symptoms and Cardiology recs FMR H&P: Upper Level - Plan Date/Time: 07/20/201937 Mr Ba is a 59yo male with pmh of HFrEF, CAD s/p stent, HTN, HLD who presented to [place] with chest pressure that started at 1400. Endorsed diaphoresis and nausea. Located on left side of chest and radiates up neck. Endorses vomiting 3-4x. Received ASA, Nitro with some relief but pain is still present. He walks 3mi per day with without chest pain. Recently had cardiac cath 01/[address] Mckinley with 30-50% occlusion of LAD, recommended medical management. All other caths have been preformed in [place]. EKG: Sinus sae with RBBB unchanged from prior EKG PE: General: In mild distress CV: RRR, no murmurs. Chest pain not reproducible with palpation or deep inspiration. No JVD Pulm: CTA b/l Abdomen: Nontender Extremities: No edema A/P: Atypical Chest Pain -EKG with no signs of acute ischemia. CXR no acute findings. Trops x2 neg. Will continue to trend. Admit to tele. Consult cardiology (Dr. Mckinley) in AM. Recent cath with 30-50% occlusion in Jan 2020. Continue home medications. Will hold BB in case of cardiac stress. NPO at midnight. IVikki, have evaluated this patient and agree with findings/plan as outlined by advisory intern resident. Pertinent changes/additions are listed here. Addendum - Attending - Attending Attestation Date/Time: 07/21/20927 I personally evaluated the patient and discussed the management with Dr. Sterling last night. I agree with the History, Examination, Assessment and Plan documented above with any addition or exceptions noted below.
[2020-07-20 21:11] VITALS: BMI 25.4
[2020-07-20] MEDS ORDERED: Nitroglycerin 0.4 MG TAB (25 Tab Bottle) SL PRN (21:14)
[2020-07-20 21:39] LABS: Troponin I 0.021 ng/mL (< 0.028)
[2020-07-20] MEDS ORDERED: oxyCODONE 5 MG TAB PO SCH (22:15)
[2020-07-20] MEDS ORDERED: Atorvastatin Calcium 40 MG TAB PO SCH (22:15)
[2020-07-20] MEDS ORDERED: Aspirin 81 mg Enteric Coated Tablet PO SCH (22:15)
[2020-07-20] MEDS ORDERED: Gabapentin 300 MG CAP PO SCH (22:30)
[2020-07-20] MEDS ORDERED: rOPINIRole HCl 2 MG TAB PO SCH (22:30)
[2020-07-20] MEDS ORDERED: Icosapent Ethyl 1 GM CAPSULE PO SCH (22:30)
[2020-07-20] MEDS ORDERED: Metoclopramide HCl 10 MG TAB PO SCH (22:30)
[2020-07-21] MEDS: oxyCODONE 5 MG TAB PO SCH ×4 (02:33→12:59)
--- NOTE | 2020-07-21 05:25 | PDOC.FM ---
Addendum entered and electronically signed by Mariana Barron DO 07/21/20 10:28: Pt will not need stress test. Symptoms most likely due to GI with hx of GERD and Simpson's esophagus. Will give patient diet and GI cocktail and will f/u if this resolves his symptoms. Original Note: - Subjective Subjective: Pt resting comfortably in bed. No acute events overnight. Pt states that his CP is at a 4/10 this AM and states that he is still having neck pain. Was having tingling/numbness in his L arm overnight, however, it does not feel this way this AM. He states that his last cath was [address] Mckinley and at that time no intervention was necessary. Telemetry showed SR in 50s-70s. - Objective Vital Signs & Weight: Vital Signs (12 hours) Temp Pulse Resp BP Pulse Ox 07/21/20 03:59 98.2 F 56 L 20 159/87 H 96 07/21/20 00:56 70 25 H 144/91 H 07/20/20 20:25 98.4 F 57 L 22 H 124/70 97 Weight Weight 73.709 kg Phys Exam - Physical Examination Constitutional: NAD HEENT: moist MMs Neck: supple Respiratory: no wheezing, no rales, no rhonchi, clear to auscultation bilateral Cardiovascular: RRR, no significant murmur, no rub Gastrointestinal: soft, non-tender, no distention, positive bowel sounds Musculoskeletal: no edema, pulses present no TTP of chest Neurological: normal sensation, moves all 4 limbs Psychiatric: normal affect, A&O x 3 Skin: normal turgor, cap refill <2 seconds Deviation from normal: no rash noted on back or chest Dx/Plan - Plan Plan: 59 yo M with a hx of CAD, HTN, HLD, CHF, cathx4, stentx1 who transferred from [place] [facility] for chest pain, nausea, and vomiting ##Atypical Chest Pain suspected 2/2 to Coronary Artery Disease Extensive history including multiple caths (4) and a stent (1) EKG showed no signs of ischemia, CXR normal Trops 0.017 --> 0.014 hold betablocker NPO @ midnight in case Cards wants to stress or cath Cardiology consult - Dr. Mckinley ##HTN Has been wnl Continue home medications ##HLD Continue home medications ##CHF ECHO 01/2020: EF 45-50% BNP wnl No signs of fluid overload Continue home medications ##Neuropathy Continue home medications ##GERD Continue home medications ##Chronic pain History of multiple MSK surgeries Continue home medications DVTPPx: lovenox PCP: Howie Diet: [place], NPO @ midnight Code: FULL Dispo: eLOS <48 hours. f/u with cardiology this AM for stress or cath. Addendum - Attending - Attending Attestation Date/Time: 07/21/20 1596 I personally evaluated the patient and discussed the management with the team. I agree with the History, Examination, Assessment and Plan documented above with any addition or exceptions noted below. Patient much improved this AM. Plan for GI cocktail as cardiology declined to see him as they feel his pain has not changed and is GI in nature. He can add H2 ruben QHS for symptoms and needs a surveillance EGD.
[2020-07-21] MEDS ORDERED: Lidocaine 2% Viscous Solution 10 ML, Aluminum & Magnesium Hydroxide 30 ML SSW SCH (08:15)
[2020-07-21] MEDS ORDERED: Icosapent Ethyl 1 GM CAPSULE PO SCH (09:00)
[2020-07-21] MEDS ORDERED: Lisinopril 20 MG TAB PO SCH (09:00)
[2020-07-21] MEDS ORDERED: Venlafaxine HCl XR 150 MG CAP PO SCH (09:00)
[2020-07-21] MEDS ORDERED: Aspirin 81 mg Enteric Coated Tablet PO SCH ×2 (09:00)
[2020-07-21] MEDS ORDERED: Metoclopramide HCl 10 MG TAB PO SCH (09:00)
[2020-07-21] MEDS ORDERED: Enoxaparin Sodium 40 MG/0.4 ML SYRINGE SC SCH (09:00)
[2020-07-21] MEDS: Gabapentin 300 MG CAP PO SCH ×2 (09:54→12:58)
[2020-07-21 12:06] VITALS: BP 143/82; TEMP 98.7
[2020-07-21 14:55] LABS: SARS-CoV-2 MS2 Positive; SARS-CoV-2 N Gene Negative; SARS-CoV-2 S Gene Negative; SARS-CoV-2 by NAA Not Detected (NotDetected); SARS-CoV-2 orf1ab Negative
[2020-07-21] MEDS ORDERED: rOPINIRole HCl 2 MG TAB PO SCH (21:00)
[2020-07-21] MEDS ORDERED: Atorvastatin Calcium 40 MG TAB PO SCH (21:00)
--- NOTE | 2020-07-21 21:32 | DIS ---
DATE OF ADMISSION: 07/20/2020 DATE OF DISCHARGE: 07/21/2020 RESIDENT: Mariana Barron DO ADMITTING ATTENDING: Andreas Hamilton MD DISCHARGE ATTENDING: Matthew Coello MD CONSULT: None. PROCEDURES: None. PRIMARY DIAGNOSIS: Atypical chest pain. SECONDARY DIAGNOSES: Hypertension, hyperlipidemia, congestive heart failure, neuropathy, gastroesophageal reflux disease with Simpson esophagus, and chronic pain. HOME GO MEDICATIONS: 1. Oxycodone 10 mg p.o. q.4. 2. Gabapentin 600 mg p.o. q.i.d. 3. Coreg 25 mg p.o. b.i.d. 4. Aspirin 81 mg p.o. b.i.d. 5. Lisinopril 20 mg p.o. daily. 6. Lipitor 40 mg p.o. at bedtime. 7. Nitrostat 0.4 mg. 8. Venlafaxine 150 mg p.o. daily. 9. Ranexa 500 mg p.o. b.i.d. 10. Omeprazole 40 mg. 11. Metoclopramide 10 mg p.o. t.i.d. 12. Vascepa 2 g p.o. b.i.d. 13. Ropinirole 4 mg p.o. at bedtime. 14. Famotidine 40 mg p.o. daily. DISCONTINUED MEDICATIONS: None. HISTORY OF PRESENT ILLNESS/HOSPITAL COURSE: Mr. Ba is a 59-year-old male with past medical history of heart failure with reduced ejection fraction, CAD s/p one stent, hypertension, and hyperlipidemia, who presented with chest pain starting in the afternoon of day of admission. He endorsed diaphoresis, nausea and vomiting. It was located on the left side of his chest and radiating up his neck. In the ED he received aspirin and nitroglycerin with some relief. Of note, he had a heart catheterization in January of this year with Dr. Mckinley, which showed a 30-50% occlusion in the LAD stent and medical management was recommended at this time. He was started on vescepa and ranexa after this and since then his CP has been controlled. The patient's initial troponins were negative. EKG did not have ST changes. The patient was admitted overnight for ACS rule out. He did not have any events overnight, his chest pain had remained at a 4/10 on the pain scale. It was determined that he most likely did not need a stress test or catheterization during this hospitalization since patient's symptoms abated with a GI cocktail. He was advised that he follow up with the GI physician and Dr. Mckinley outpatient. DISPOSITION: Stable. INSTRUCTIONS: 1. Location: Home. 2. Diet: Heart healthy. 3. Activity: As tolerated. 4. Follow up in 1 to [address] Denise and Dr. Mckinley with Cardiology. Job ID: [id number] [facility] HOSPITALRudy
--- NOTE | 2020-07-30 14:32 | EKG ---
Test Reason : Blood Pressure : / mmHG Vent. Rate : 052 BPM Atrial Rate : 052 BPM P-R Int : 154 ms QRS Dur : 146 ms QT Int : 474 ms P-R-T Axes : 000 -26 105 degrees QTc Int : 440 ms Sinus bradycardia Right bundle branch block Anteroseptal infarct , age undetermined Abnormal ECG Confirmed by CHASE JAEGER, JANIYA Merino ([id number]), editor index VERITO CAMPO ([id number]) on 07/30/2020 2:32:24 PM Referred By: Confirmed By:JANIYA STONE MD
== END 2020-07-21 16:05 | disposition home or self-care (01) ==
LOC: ERS 17:30 → 2SW 20:27
PROVIDERS: ADMIT Family Medicine; ATTEND Family Medicine
DX: R07.89 Other chest pain (principal); I11.0 Hypertensive heart disease with heart failure; I50.20 Unspecified systolic (congestive) heart failure; E78.5 Hyperlipidemia, unspecified; G62.9 Polyneuropathy, unspecified; K21.9 Gastro-esophageal reflux disease without esophagitis; K22.70 Barrett's esophagus without dysplasia; G89.29 Other chronic pain; I25.10 Atherosclerotic heart disease of native coronary artery without angina pectoris; R73.03 Prediabetes; I45.10 Unspecified right bundle-branch block; F12.10 Cannabis abuse, uncomplicated; Z79.82 Long term (current) use of aspirin; Z79.891 Long term (current) use of opiate analgesic; Z79.899 Other long term (current) drug therapy; Z88.5 Allergy status to narcotic agent; Z88.8 Allergy status to other drugs, medicaments and biological substances; Z95.5 Presence of coronary angioplasty implant and graft; Z20.828 Contact with and (suspected) exposure to other viral communicable diseases
CPT/HCPCS: 84484; 93005; 99285; U0003; 36415; 87635; 93010; 96372; G0378; J1650; Q0162

== ENCOUNTER 2020-08-15 05:33 | Day surgery (SDC) | payer MEDICARE ==
[2020-08-12 09:26] VITALS: BMI 25.8
[2020-08-15] MEDS ORDERED: Lidocaine 1% PF 5 ML VIAL ONE (08:49)
[2020-08-15] MEDS ORDERED: PROPOFOL 200 MG/20 ML VIAL ONE (08:49)
--- NOTE | 2020-08-16 09:07 | OP ---
DATE OF PROCEDURE: 08/15/2020 PROCEDURES PERFORMED: Esophagogastroduodenoscopy with dilatation and biopsy and colonoscopy with polypectomy. PREOPERATIVE DIAGNOSES: 1. History of Simpson esophagus. [place] of state 5 [place] 6 years ago. 2. Dysphagia for solids and liquids. 3. Prior history of colon polyps. ANESTHESIA: TIVA. POSTOPERATIVE DIAGNOSES: 1. Normal esophagus. There was some hypercontractility of the esophagus, but no overt evidence of strictures was seen. 2. There was a small hiatal hernia, 3 cm, sliding-type. 3. Stomach and duodenum were normal. 4. Dilatation with 54-[place] dilator was performed with no effect. GE junction was biopsied. 5. Colonoscopy normal except for mild diverticulosis coli in the sigmoid colon and diminutive polyp in the sigmoid colon removed by cold snare polypectomy. RECOMMENDATIONS: Await histopathology. Repeat colonoscopy in 5 years. Follow up in the office in 3 weeks. If dysphagia persists, consider esophageal manometry. DESCRIPTION OF PROCEDURE: After the patient was informed of the risks, benefits, and possible complications of endoscopy including perforation, reaction to medication, and aspiration, informed consent was obtained, and the patient was brought to the endoscopy suite, where he was sedated in gradual fashion. Once he was comfortable, a bite block was placed in the incisural orifice. The endoscope was advanced through the esophagus and stomach into the second and third portions of the duodenum and slowly removed. The duodenum and stomach were normal. The stomach was normal in forward and retroflexed views and had normal distensibility. There was a sliding 3 cm type hiatal hernia. GE junction was biopsied, but it did appear normal; we biopsied it for a history of short-segment Simpson's. There was no evidence of achalasia. The GE junction did relax, although there was increased spasticity of the distal esophagus. Dilatation was performed with 54-[place] dilator throughout the entire esophagus. On second look, there was no effect. The scope was removed. The patient was returned to the room and rectal examination was normal. The endoscope was advanced to the anal canal through the colon to cecum which was identified by the ileocecal valve and the appendiceal orifice. The prep was good. The scope was slowly removed. There was good visualization. There were no masses or lesions. There was a small diminutive polyp in the sigmoid colon removed by cold snare polypectomy and submitted to Pathology. Job ID: [id number]
== END 2020-08-15 10:30 | disposition home or self-care (01) ==
LOC: SDC 05:33
PROVIDERS: ATTEND Internal Medicine Gastroenterology
PROC: 0DBN8ZZ Excision of Sigmoid Colon, Via Natural or Artificial Opening Endoscopic (ICD-10-PCS; principal; 2020-08-15)
PROC: 0DB48ZX Excision of Esophagogastric Junction, Via Natural or Artificial Opening Endoscopic, Diagnostic (ICD-10-PCS; 2020-08-15)
PROC: 0D747ZZ Dilation of Esophagogastric Junction, Via Natural or Artificial Opening (ICD-10-PCS; 2020-08-15)
DX: K63.5 Polyp of colon (principal); K57.30 Diverticulosis of large intestine without perforation or abscess without bleeding; K44.9 Diaphragmatic hernia without obstruction or gangrene; K21.9 Gastro-esophageal reflux disease without esophagitis; F41.9 Anxiety disorder, unspecified; F32.9 Major depressive disorder, single episode, unspecified; I11.0 Hypertensive heart disease with heart failure; I50.9 Heart failure, unspecified; I25.10 Atherosclerotic heart disease of native coronary artery without angina pectoris; E78.00 Pure hypercholesterolemia, unspecified; G47.30 Sleep apnea, unspecified; Z79.82 Long term (current) use of aspirin; Z79.899 Other long term (current) drug therapy; Z86.010 Personal history of colon polyps; Z95.5 Presence of coronary angioplasty implant and graft
CPT/HCPCS: 88305; 88312; 88313; J2704

== ENCOUNTER 2020-09-13 19:30 | Outpatient (CLI) | payer MEDICARE | END 2020-09-13 19:31 | disposition home or self-care (01) | LOC: SLEEPLAB 19:30 | PROVIDERS: ATTEND Internal Medicine | DX: G47.33 Obstructive sleep apnea (adult) (pediatric) (principal); R53.83 Other fatigue; R51.9 Headache, unspecified; K21.9 Gastro-esophageal reflux disease without esophagitis; F41.9 Anxiety disorder, unspecified; I21.9 Acute myocardial infarction, unspecified; G47.00 Insomnia, unspecified; G47.10 Hypersomnia, unspecified; I25.10 Atherosclerotic heart disease of native coronary artery without angina pectoris; G25.81 Restless legs syndrome; I10 Essential (primary) hypertension; G47.31 Primary central sleep apnea | CPT/HCPCS: 95811 ==

== ENCOUNTER 2020-10-17 17:07 | Inpatient (IN) | payer MEDICARE ==
[2020-10-17] MEDS ORDERED: Nitroglycerin 2% Ointment 1 INCH/1 GM Packet ONE (18:29)
[2020-10-17] MEDS ORDERED: Morphine 4 MG/ML VIAL ONE (18:33)
--- NOTE | 2020-10-17 18:33 | PDOC.FPRHP ---
- History of Present Illness Chief Complaint: Chest Pain History of Present Illness: Mr Ba is a 60yo male with PMHx of CHF presents with chest pain that started 2 days ago. He called his PCP Dr. Denise and was instructed to go to ED. Pain is tight and heavy "like someone sitting on my chest." Associated with light headedness and SOB. Pain radiates to left side of neck. Denies nausea/vomiting. Endorses fatigue. Getting up and walking improves pain. Pt states that his chest tightness has been worse while he has been lying flat and has not been able to get good sleep because of this. He has been taking his medicaitons as prescribed and denies sick contacts, fever/chills, stroke symptoms. Jan 2020 was diagnosed with CAD by heart cath by Dr Mckinley. Chest pain is currently 05/11. ED Course: s/p nitro paste in ED. in outlying ED had SL nitro x3 and 1 dose morphine - Allergies/Adverse Reactions Allergies Allergy/AdvReac Type Severity Reaction Status Date / Time fentanyl [From Duragesic] Allergy Nausea Verified 10/17/20 22:59 quinine Allergy Nausea Verified 10/17/20 22:59 - Home Medications Medication Instructions Recorded Confirmed Type Aspirin [Adult Low Dose Aspirin EC] 81 mg PO BID 01/19/20 10/17/20 History Atorvastatin Calcium [Lipitor] 40 mg PO HS 01/19/20 10/17/20 History Carvedilol [Coreg] 25 mg PO BID 01/19/20 10/17/20 History Gabapentin 600 mg PO BID 01/19/20 10/18/20 History Lisinopril 20 mg PO DAILY 01/19/20 10/17/20 History Nitroglycerin [Nitrostat] 0.4 mg SL Q5MIN PRN #30 tab 01/19/20 10/17/20 Rx OxyCODONE IR [oxyCODONE HCl] 10 mg PO Q4HR 01/19/20 10/17/20 History Venlafaxine HCl [Venlafaxine HCl 150 mg PO DAILY 01/24/20 10/17/20 History ER] Ranolazine [Ranexa] 500 mg PO BID #60 tab 01/26/20 10/17/20 Rx Icosapent Ethyl [Vascepa] 2 gm PO BID 07/20/20 10/17/20 History Omeprazole 40 mg PO DAILY 07/20/20 10/17/20 History rOPINIRole HCl [Requip] 4 mg PO HS 07/20/20 10/17/20 History - History PMHx: CHF (Sees Dr Mckinley) PSHx: Back surgery, hip surgery, neck surgery, shoulder replacement FHx: Mother & Father- of heart disease, Brothers & sisters, aunts uncles all with heart disease Social: Denies tobacco, drug use. Occasional alcohol use. Hx of medical marijuana use. - Review of Systems General: denies: fever/chills, night sweats, fatigue Eyes: denies: eye pain, vision changes ENT: denies: nasal congestion, rhinorrhea Respiratory: reports: shortness of breath. denies: cough, congestion Cardiovascular: reports: chest pain. denies: edema, orthopnea Gastrointestinal: reports: abdominal pain. denies: nausea, vomiting Genitourinary: denies: dysuria, discharge Skin: denies: rashes, lesions Musculoskeletal: denies: pain, swelling Neurological: denies: weakness - Vital signs BP: 137/106 HR: 59 RR: 16 - Physical Exam Constitutional: NAD, awake, alert and oriented HEENT: normocephalic and atraumatic, PERRLA Neck: supple Chest: no-tender to palpation Heart: RRR, normal S1/S2, no murmurs/rubs/gallops Lungs: CTAB, no respiratory distress, good air movement, no rales/rhonchi, no wheezing, no retractions Abdomen: soft, non-tender, bowel sounds present Musculoskeletal: normal structure Neurological: no focal deficit Psychiatric: normal mood and affect, good judgment and insight, intact recent and remote memory FMR H&P: Results - Labs Result Diagrams: 10/18/20 04:25 10/18/20 04:25 - EKG Interpretation EKG: non-specific ST changes - Radiology Interpretation Chest x-ray Status: image reviewed by me, report reviewed by me (no acute cardiopulmonary process) FMR H&P: A/P - Plan 60 y/o M presents to ED with 2 days of CP with PND and SOB. ##Atypical Chest Pain -2/2 to possible exacerbation of CHF vs. MSK vs. 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 Continue home medications DVTPPx: lovenox PCP: Howie Diet: , NPO @ midnight Code: FULL Dispo: admitted to telemetry for observation. NPO at 12AM for possible stress in AM. FMR H&P: Upper Level - Plan Date/Time: 10/17/201832 Mr Ba is a 60yo male with pmh of CAD and CABG, HTN who presents with pressure like chest pain that started 2 days ago. Reports it feels like someone sitting on his chest. Also reports radiation to left neck, and associated SOB. Denies diaphoresis, nausea. Pain is currently 6/10. He just had Nitro patch placed and unsure if it has helped. Also received 4mg Morphine. Also in route by EMS received 162mg ASA, 3 nitro SL, and 4mg Morphine. PE: General: NAD CV: RRR, no murmurs. Pain nonreproducible Pulm: CTA b/l Extremities: Pedial pules 2+, no edema A/P: Atypical Chest Pain -Trops neg x3. CXR with no acute findings. EKG with no signs of acute ischemia. HEART score: 4. Admit to telemetry. Received ASA in ED. NPO at midnight. EKG for return of chest pain. Consider echo in AM for complaint of orthopnea, cath (01/2020) with normal EF and Echo with EF: 45-50%. Cath: Stent in LAD patent, LAD diffuse disease 30-50% no flow limitation, Ranexa was added. Consider consult to cardiology, Dr Mckinley. Hx of Hiatal hernia and Barretts esophagus I, Vikki Franks, have evaluated this patient and agree with findings/plan as outlined by lab intern resident. Pertinent changes/additions are listed here. Addendum - Attending - Attending Attestation Date/Time: 10/18/20 0620 I personally evaluated the patient and discussed the management with Dr. Barron on 10/17/20 I agree with the History, Examination, Assessment and Plan documented above with any addition or exceptions noted below - 60yo male with h/o CAD, HTN, HLD presents with chest pain that started 2 days ago. He called his PCP Dr. Denise and was instructed to go to ED. Pain is tight and heavy "like someone sitting on my chest." Associated with lightheadedness and SOB. Pain radiates to left side of neck. Denies nausea/vomiting. Endorses fatigue. Getting up and walking improves pain. Pt states that his chest tightness has been worse while he has been lying flat and has not been able to get good sleep because of this. He has been taking his medicaitons as prescribed and denies sick contacts, fever/chills, stroke symptoms. Afebrile VSS. Exam repeated by me and agree with resident's findings. Labs: H/H=14.4/45, Gw=745, K=3.7, BUN/Cr=17/1.01, Qvye=022, BNP=77, trop<0.010 x2; CXR- NAD. A/P: 1) CHest pain- recent cath in with non-obstructing CAD. Continue to trend cardiac enzymes and will discuss with cardiology in AM. 2) HTN- stable; continue home meds.
[2020-10-17] MEDS ORDERED: Ondansetron PF 4 MG/2 ML Vial IVP PRN (18:59)
[2020-10-17] MEDS ORDERED: Ondansetron ODT 4 MG TAB PO PRN (18:59)
[2020-10-17] MEDS ORDERED: Acetaminophen 325 MG TAB PO PRN (18:59)
[2020-10-17] MEDS ORDERED: Lidocaine 2% Viscous Solution 10 ML, Aluminum & Magnesium Hydroxide 30 ML SSW SCH (20:15)
[2020-10-17] MEDS ORDERED: Nitroglycerin 0.4 MG TAB (25 Tab Bottle) SL PRN (20:21)
[2020-10-17 21:34] LABS: Troponin I Less than 0.010 ng/mL (< 0.028)
[2020-10-17] MEDS: Aspirin 81 mg Enteric Coated Tablet PO SCH (23:02)
[2020-10-17] MEDS: Gabapentin 300 MG CAP PO SCH (23:02)
[2020-10-17] MEDS: rOPINIRole HCl 2 MG TAB PO SCH (23:03)
[2020-10-17] MEDS: Atorvastatin Calcium 40 MG TAB PO SCH (23:03)
[2020-10-18] MEDS: Icosapent Ethyl 1 GM CAPSULE PO SCH ×3 (00:23→20:41)
[2020-10-18] MEDS: oxyCODONE 5 MG TAB PO SCH ×6 (00:54→20:43)
[2020-10-18 01:37] LABS: Troponin I Less than 0.010 ng/mL (< 0.028)
[2020-10-18 05:07] LABS: Band 1 % (5-11); Eosinophils 6 % (0-10); Hemoglobin 12.2 g/dL (14.0-18.0); Lymphocytes 18 % (21-51); MDiff Complete? YES; Mean Corpuscular HGB CONC 33.7 g/dL (32.0-36.0); Mean Corpuscular Hemoglobin 32.1 pg (27.0-31.0); Mean Corpuscular Volume 95.1 fL (78.0-98.0); Mean Platelet Volume 7.2 fL (7.4-10.4); Metamyelocyte 1 % (0-0); Monocytes 5 % (0-10); Neutrophil 69 % (42-75); Platelet Count 256 thou/uL (130-400); Platelet Morphology Comment Appears Adequate; RBC Distribution Width 12.7 % (11.5-14.5); Red Blood Cell (RBC) Count 3.81 mill/uL (4.70-6.10)
[2020-10-18 05:23] LABS: Anion Gap 13 mmol/L (10-20); BUN (Urea Nitrogen) 23 mg/dL (8.4-25.7); Calc. Creatinine Clearance 87 mL/min (70-130); Calcium 8.4 mg/dL (7.8-10.44); Carbon Dioxide 26 mmol/L (22-29); Chloride 105 mmol/L (98-107); Estimated GFR-MDRD 72; Glucose 104 mg/dL (70-105); Potassium 3.7 mmol/L (3.5-5.1); Sodium 140 mmol/L (136-145)
--- NOTE | 2020-10-18 07:08 | PDOC.FM ---
- Subjective Subjective: He states he is having chest tightness and it is worse with lying flat. He denies any other pain. He says he vomited once before midnight after eating a sandwich. - Objective MAR Reviewed: Yes Vital Signs & Weight: Vital Signs (12 hours) Temp Pulse Resp BP Pulse Ox 10/18/20 04:00 97.8 F 63 14 134/79 96 10/18/20 00:00 77 113/73 10/17/20 21:40 98.3 F 63 16 131/78 98 Weight Weight 80.739 kg I&O: 10/17/20 10/18/20 10/19/20 06:59 06:59 06:59 Intake Total 500 Balance 500 Result Diagrams: 10/18/20 04:25 10/18/20 04:25 Phys Exam - Physical Examination Constitutional: NAD HEENT: moist MMs, sclera anicteric Neck: no nodes, supple Respiratory: no wheezing, no rales, no rhonchi, clear to auscultation bilateral Cardiovascular: RRR, no significant murmur Gastrointestinal: soft, non-tender, no distention Musculoskeletal: no edema, pulses present Neurological: moves all 4 limbs Lymphatic: no nodes Psychiatric: normal affect Skin: no rash, normal turgor Dx/Plan (1) Atypical chest pain Code(s): R07.89 - OTHER CHEST PAIN Status: Acute (2) CHF (congestive heart failure) Code(s): I50.9 - HEART FAILURE, UNSPECIFIED Status: Acute (3) Kaur esophagus Code(s): K22.70 - KAUR'S ESOPHAGUS WITHOUT DYSPLASIA Status: Acute (4) HTN (hypertension) Code(s): I10 - ESSENTIAL (PRIMARY) HYPERTENSION Status: Acute (5) Neuropathy Code(s): G62.9 - POLYNEUROPATHY, UNSPECIFIED Status: Acute (6) Chronic pain Code(s): G89.29 - OTHER CHRONIC PAIN Status: Acute (7) Coronary artery disease Code(s): I25.10 - ATHSCL HEART DISEASE OF [place] CORONARY ARTERY W/O ANG PCTRS Status: Acute - Plan Plan: 60 y/o M presents to ED with 2 days of CP with PND and SOB. 1. Atypical Chest Pain 2/2 to possible exacerbation of CHF vs. MSK vs. GI Trended trop x3 negative -EKG non specific changes -CXR wnl -BNP 77 -ECHO in 01/21 showed EF 45-50% -Cath in 01/21 showed Stent in LAD patent, LAD diffuse disease 30-50% no flow limitation -Continue to monitor symptoms -will order for GI cocktail to see if this improves symptoms -strict I/O daily weights -NPO currently -ECHO today -Will consult cards due to heart history. Does not likely need stress due to negative Cath in 01/21 2. HTN Continue home medications -Will monitor 3. HLD Continue home medications 4. GERD / Barett's Esophagus Hx of Hiatal Hernia Continue home medications -GI cocktail ordered 5. Neuropathy Continue home medications 6. Chronic pain History of multiple MSK surgeries Continue home medications 7. HFrEF See ECHO above -Consider adding on Spironolactone -Lasix given to see if it helps with chest tightness/PND Code Status: Full DVTPPx: lovenox Diet: HH, NPO @ midnight PCP: Howie Dispo: Will consult Cardiology due to heart history. ECHO today. Will give 20 of IV Lasix to see if Chest tightness/PND resolves. Likely d/c this afternoon. Addendum - Attending - Attending Attestation Date/Time: 10/18/20 5428 I personally evaluated the patient and discussed the management with Dr. Plasencia. I agree with the History, Examination, Assessment and Plan documented above with any addition or exceptions noted below. Dispo per cards recs.
[2020-10-18 08:30] LABS: Cardiac Risk 2.6 (Less than 4.5)
[2020-10-18 08:43] LABS: SARS-CoV-2 MS2 Positive; SARS-CoV-2 N Gene Negative; SARS-CoV-2 S Gene Negative; SARS-CoV-2 by NAA Not Detected (NotDetected); SARS-CoV-2 orf1ab Negative
[2020-10-18] MEDS: Aspirin 81 mg Enteric Coated Tablet PO SCH ×2 (09:05→20:43)
[2020-10-18] MEDS: Gabapentin 300 MG CAP PO SCH ×4 (09:05→20:42)
[2020-10-18] MEDS: Lisinopril 20 MG TAB PO SCH (09:06)
[2020-10-18] MEDS: Venlafaxine HCl XR 150 MG CAP PO SCH (09:07)
[2020-10-18] MEDS: Enoxaparin Sodium 40 MG/0.4 ML SYRINGE SC SCH (09:08)
[2020-10-18] MEDS ORDERED: Furosemide 20 MG/2 ML VIAL SLOW IVP SCH (09:15)
[2020-10-18] MEDS ORDERED: Ketorolac Tromethamine 30 MG/ML VIAL IVP SCH (10:30)
[2020-10-18] MEDS ORDERED: Carvedilol 25 MG TAB PO SCH (10:30)
--- NOTE | 2020-10-18 11:50 | CON ---
DATE OF CONSULTATION: HISTORY OF PRESENT ILLNESS: The patient is a 60-year-old gentleman with a history of coronary artery disease, who presents with chest discomfort. The patient has a long history of coronary artery disease. He has previously undergone PTCA and stent placement. The patient was seen in January of this year with chest pain. He underwent a cardiac catheterization. He was found to have a patent proximal LAD stent, 50% lesion in the mid LAD, 40% distal lesion, and a 30% lesion in the left circumflex artery. The patient was usual state of health until a few days ago, he started developing midsternal chest discomfort. This discomfort is clearly worse whenever he lies down, and the chest discomfort is relieved much less severe when he sits up. The patient denies having any fevers or chills. PAST MEDICAL HISTORY: 1. Coronary artery disease. 2. Hypertension. 3. Dyslipidemia. PAST SURGICAL HISTORY: Back surgery, hip surgery, neck surgery, shoulder history, hernia surgery. SOCIAL HISTORY: Nonsmoker. FAMILY HISTORY: Positive family history of heart disease. MEDICATIONS: 1. Gabapentin 600 b.i.d. 2. Ranexa 500 b.i.d. 3. Vascepa 2 b.i.d. 4. Coreg 25 mg p.o. b.i.d. 5. Lipitor 40 at bedtime. 6. Lisinopril 20 daily. REVIEW OF SYSTEMS: Ten-point system otherwise unremarkable. No history of easy bruising or bleeding bright red blood per rectum. PHYSICAL EXAMINATION: GENERAL: Well-developed gentleman, in no acute distress. VITAL SIGNS: Blood pressure of 157/95. NECK: No jugular venous distention. LUNGS: Clear to auscultation. HEART: Regular rate and rhythm. Normal S1, S2. No murmurs. No rubs. ABDOMEN: Nondistended. EXTREMITIES: Showed no edema. VASCULAR: Radial pulses 2+. LABORATORY DATA: Sodium 140, potassium 3.7, chloride 105, bicarbonate 26, BUN 23, creatinine 1.06. Troponin is 0.01. His white blood cell count is 11.0, hemoglobin 12.2, hematocrit 36.2, and his platelets are 256. His EKG is pending. IMPRESSION: 1. Chest pain suggestive of pericarditis. 2. History of coronary artery disease. 3. Hypertension. 4. Dyslipidemia. This gentleman presents with pericardial pain. He will be treated with IV Toradol. I will start the patient on Motrin. We will check the patient's echocardiogram. We will follow this patient with you through his hospitalization. Job ID: [id number] MTDD
[2020-10-18] MEDS: Ibuprofen 600 MG TAB PO SCH ×2 (11:53→15:51)
[2020-10-18] MEDS: rOPINIRole HCl 2 MG TAB PO SCH (20:41)
[2020-10-18] MEDS: Atorvastatin Calcium 40 MG TAB PO SCH (20:43)
[2020-10-18] MEDS: Carvedilol 25 MG TAB PO SCH (20:43)
[2020-10-19] MEDS: oxyCODONE 5 MG TAB PO SCH ×6 (01:13→20:54)
[2020-10-19 04:41] LABS: Band 5 % (5-11); Eosinophils 3 % (0-10); Hemoglobin 13.3 g/dL (14.0-18.0); Hypochromia SLIGHT = 6-15 cells (100X) (0-5/hpf); Lymphocytes 15 % (21-51); MDiff Complete? YES; Mean Corpuscular HGB CONC 33.2 g/dL (32.0-36.0); Mean Corpuscular Hemoglobin 31.3 pg (27.0-31.0); Mean Corpuscular Volume 94.3 fL (78.0-98.0); Mean Platelet Volume 6.8 fL (7.4-10.4); Monocytes 7 % (0-10); Neutrophil 70 % (42-75); Platelet Count 264 thou/uL (130-400); Platelet Morphology Comment Appears Adequate; RBC Distribution Width 12.6 % (11.5-14.5); Red Blood Cell (RBC) Count 4.24 mill/uL (4.70-6.10); White Blood Cell (WBC) Count 10.5 thou/uL (4.8-10.8)
[2020-10-19 04:47] LABS: Anion Gap 14 mmol/L (10-20); BUN (Urea Nitrogen) 27 mg/dL (8.4-25.7); Calc. Creatinine Clearance 80 mL/min (70-130); Calcium 8.4 mg/dL (7.8-10.44); Carbon Dioxide 25 mmol/L (22-29); Chloride 103 mmol/L (98-107); Estimated GFR-MDRD 65; Glucose 86 mg/dL (70-105); Potassium 3.9 mmol/L (3.5-5.1); Sodium 138 mmol/L (136-145)
--- NOTE | 2020-10-19 09:02 | PDOC.FM ---
- Subjective Subjective: He says he is doing well this morning. He says he is still experiencing some chest tightness. He denies any other new changes. - Objective MAR Reviewed: Yes Vital Signs & Weight: Vital Signs (12 hours) Temp Pulse Resp BP Pulse Ox 10/19/20 07:13 98.1 F 62 18 121/85 95 10/19/20 03:08 98 F 95 14 115/82 95 Weight Weight 79.832 kg I&O: 10/18/20 10/19/20 10/20/20 06:59 06:59 06:59 Intake Total 500 1440 Balance 500 1440 Result Diagrams: 10/19/20 04:04 10/19/20 04:04 EKG Reviewed by me: Yes (SR with BBB in 50-70s) Phys Exam - Physical Examination Constitutional: NAD HEENT: moist MMs, sclera anicteric Neck: no nodes, supple Respiratory: no wheezing, no rales, no rhonchi, clear to auscultation bilateral Cardiovascular: RRR, no significant murmur Gastrointestinal: soft, non-tender, positive bowel sounds Musculoskeletal: no edema, pulses present Neurological: moves all 4 limbs Lymphatic: no nodes Psychiatric: normal affect Skin: no rash, normal turgor Dx/Plan (1) Atypical chest pain Code(s): R07.89 - OTHER CHEST PAIN Status: Acute (2) CHF (congestive heart failure) Code(s): I50.9 - HEART FAILURE, UNSPECIFIED Status: Acute (3) Kaur esophagus Code(s): K22.70 - KAUR'S ESOPHAGUS WITHOUT DYSPLASIA Status: Acute (4) HTN (hypertension) Code(s): I10 - ESSENTIAL (PRIMARY) HYPERTENSION Status: Acute (5) Neuropathy Code(s): G62.9 - POLYNEUROPATHY, UNSPECIFIED Status: Acute (6) Chronic pain Code(s): G89.29 - OTHER CHRONIC PAIN Status: Acute (7) Coronary artery disease Code(s): I25.10 - ATHSCL HEART DISEASE OF [place] CORONARY ARTERY W/O ANG PCTRS Status: Acute - Plan Plan: 60 y/o M presents to ED with 2 days of CP with PND and SOB. 1. Atypical Chest Pain 2/2 to possible exacerbation of CHF vs. MSK vs. GI Trended trop x3 negative -EKG non specific changes -CXR wnl -BNP 77 -ECHO in 01/21 showed EF 45-50% -ECHO on 10/18/20: EF 35-40% with akinetic apex -Cath in 01/21 showed Stent in LAD patent, LAD diffuse disease 30-50% no flow limitation -Continue to monitor symptoms -will order for GI cocktail to see if this improves symptoms -strict I/O daily weights -NPO currently -ECHO today -Will consult cards due to heart history. Does not likely need stress due to negative Cath in 01/21 2. HTN Continue home medications -Will monitor 3. HLD Continue home medications 4. GERD / Barett's Esophagus Hx of Hiatal Hernia Continue home medications -GI cocktail ordered 5. Neuropathy Continue home medications 6. Chronic pain History of multiple MSK surgeries Continue home medications 7. HFrEF See ECHO above -Consider adding on Spironolactone -Lasix given to see if it helps with chest tightness/PND Code Status: Full DVTPPx: lovenox Diet: HH, NPO @ midnight PCP: Howie Dispo: Will get Cardiology recommendations. Pt is on WENDY and BB. He treat his pericarditis. Addendum - Attending - Attending Attestation Date/Time: 10/19/20 3850 I personally evaluated the patient and discussed the management with Dr. Plasencia. I agree with the History, Examination, Assessment and Plan documented above with any addition or exceptions noted below. Awaiting cards recs. Dispo pending that but anticipate d/c today.
[2020-10-19] MEDS: Ibuprofen 600 MG TAB PO SCH ×3 (09:08→16:09)
[2020-10-19] MEDS: Aspirin 81 mg Enteric Coated Tablet PO SCH ×2 (09:09→20:55)
[2020-10-19] MEDS: Gabapentin 300 MG CAP PO SCH ×4 (09:09→20:55)
[2020-10-19] MEDS: Enoxaparin Sodium 40 MG/0.4 ML SYRINGE SC SCH (09:09)
[2020-10-19] MEDS: Carvedilol 25 MG TAB PO SCH ×2 (09:09→20:55)
[2020-10-19] MEDS: Venlafaxine HCl XR 150 MG CAP PO SCH (09:10)
[2020-10-19] MEDS: Lisinopril 20 MG TAB PO SCH (09:10)
[2020-10-19] MEDS: Icosapent Ethyl 1 GM CAPSULE PO SCH ×2 (09:10→20:54)
[2020-10-19 14:09] VITALS: BMI 27.6
[2020-10-19] MEDS: Atorvastatin Calcium 40 MG TAB PO SCH (20:54)
[2020-10-19] MEDS: rOPINIRole HCl 2 MG TAB PO SCH (20:55)
[2020-10-20] MEDS: oxyCODONE 5 MG TAB PO SCH ×5 (00:55→16:42)
[2020-10-20 04:25] LABS: Eosinophils 3 % (0-10); Hemoglobin 12.5 g/dL (14.0-18.0); Lymphocytes 33 % (21-51); MDiff Complete? YES; Mean Corpuscular Hemoglobin 31.4 pg (27.0-31.0); Mean Corpuscular Volume 95.1 fL (78.0-98.0); Mean Platelet Volume 6.7 fL (7.4-10.4); Monocytes 4 % (0-10); Neutrophil 60 % (42-75); Platelet Count 254 thou/uL (130-400); Platelet Morphology Comment Appears Adequate; RBC Distribution Width 12.4 % (11.5-14.5); Red Blood Cell (RBC) Count 3.99 mill/uL (4.70-6.10)
[2020-10-20 04:30] LABS: Anion Gap 11 mmol/L (10-20); BUN (Urea Nitrogen) 26 mg/dL (8.4-25.7); Calc. Creatinine Clearance 95 mL/min (70-130); Calcium 8.2 mg/dL (7.8-10.44); Carbon Dioxide 28 mmol/L (22-29); Chloride 102 mmol/L (98-107); Estimated GFR-MDRD 80; Glucose 92 mg/dL (70-105); Potassium 3.8 mmol/L (3.5-5.1); Sodium 137 mmol/L (136-145)
--- NOTE | 2020-10-20 06:23 | PDOC.FM ---
- Subjective Subjective: He says he did not sleep well last night due to the chest tightness he experienced with lying down. He states that he is vomiting with every meal. - Objective MAR Reviewed: Yes Vital Signs & Weight: Vital Signs (12 hours) Temp Pulse Resp BP Pulse Ox 10/20/20 04:22 98 F 68 20 122/89 96 10/19/20 19:25 98 F 75 18 122/77 95 Weight Admit Weight 79.832 kg Weight 80.059 kg I&O: 10/18/20 10/19/20 10/20/20 06:59 06:59 06:59 Intake Total 500 1440 480 Output Total 1000 Balance 500 1440 -520 Result Diagrams: 10/20/20 03:50 10/20/20 03:50 EKG Reviewed by me: Yes (SB-ST BBB 50-70) Phys Exam - Physical Examination Constitutional: NAD HEENT: moist MMs, sclera anicteric Neck: no nodes, supple Respiratory: no wheezing, no rales, no rhonchi, clear to auscultation bilateral Cardiovascular: RRR Gastrointestinal: soft, non-tender, positive bowel sounds Musculoskeletal: no edema, pulses present Neurological: moves all 4 limbs Lymphatic: no nodes Psychiatric: normal affect Skin: no rash, normal turgor Dx/Plan (1) Atypical chest pain Code(s): R07.89 - OTHER CHEST PAIN Status: Acute (2) CHF (congestive heart failure) Code(s): I50.9 - HEART FAILURE, UNSPECIFIED Status: Acute (3) Kaur esophagus Code(s): K22.70 - KAUR'S ESOPHAGUS WITHOUT DYSPLASIA Status: Acute (4) HTN (hypertension) Code(s): I10 - ESSENTIAL (PRIMARY) HYPERTENSION Status: Acute (5) Neuropathy Code(s): G62.9 - POLYNEUROPATHY, UNSPECIFIED Status: Acute (6) Chronic pain Code(s): G89.29 - OTHER CHRONIC PAIN Status: Acute (7) Coronary artery disease Code(s): I25.10 - ATHSCL HEART DISEASE OF [place] CORONARY ARTERY W/O ANG PCTRS Status: Acute - Plan Plan: 60 y/o M presents to ED with 2 days of CP with PND and SOB. 1. Atypical Chest Pain 2/2 to possible exacerbation of CHF vs. MSK vs. GI Trended trop x3 negative -EKG non specific changes -CXR wnl -BNP 77 -ECHO in 01/21 showed EF 45-50% -ECHO on 10/18/20: EF 35-40% with akinetic apex -Cath in 01/21 showed Stent in LAD patent, LAD diffuse disease 30-50% no flow limitation -Continue to monitor symptoms -will order for GI cocktail to see if this improves symptoms -strict I/O daily weights -Cards consulted, appreciate recs. -Will get a Barium swallow to evaluate. 2. HTN Continue home medications -Will monitor 3. HLD Continue home medications 4. GERD 2/2 Barett's Esophagus Hx of Hiatal Hernia Continue home medications -GI cocktail ordered 5. Neuropathy Continue home medications 6. Chronic pain History of multiple MSK surgeries Continue home medications 7. HFrEF See ECHO above -Consider adding on Spironolactone -Lasix given to see if it helps with chest tightness/PND Code Status: Full DVT PPx: Lovenox Diet: PCP: Howie Dispo: Will get Cardiology recommendations. Will do Barium swallow today to assess for cause of the swallowing with vomiting as may be a source of atypical chest pain. A/P - Problem (1) Atypical chest pain Current Visit: Yes Code(s): R07.89 - OTHER CHEST PAIN Status: Acute (2) CHF (congestive heart failure) Current Visit: Yes Code(s): I50.9 - HEART FAILURE, UNSPECIFIED Status: Acute (3) Kaur esophagus Current Visit: Yes Code(s): K22.70 - KAUR'S ESOPHAGUS WITHOUT DYSPLASIA Status: Acute (4) HTN (hypertension) Current Visit: Yes Code(s): I10 - ESSENTIAL (PRIMARY) HYPERTENSION Status: Acute (5) Neuropathy Current Visit: Yes Code(s): G62.9 - POLYNEUROPATHY, UNSPECIFIED Status: Acute (6) Chronic pain Current Visit: Yes Code(s): G89.29 - OTHER CHRONIC PAIN Status: Acute (7) Coronary artery disease Current Visit: No Code(s): I25.10 - ATHSCL HEART DISEASE OF [place] CORONARY ARTERY W/O ANG PCTRS Status: Acute Addendum - Attending - Attending Attestation Date/Time: 10/20/20 1244 I personally evaluated the patient and discussed the management with Dr. Plasencia. I agree with the History, Examination, Assessment and Plan documented above with any addition or exceptions noted below. Awaiting cards recs. Barium swallow showed significant reflux which may be causing chest pain. Protonix BID, carafate QID, and outpt GI f/u. D/C once cleared by cards.
[2020-10-20] MEDS: Aspirin 81 mg Enteric Coated Tablet PO SCH (08:38)
[2020-10-20] MEDS: Carvedilol 25 MG TAB PO SCH (08:39)
[2020-10-20] MEDS: Venlafaxine HCl XR 150 MG CAP PO SCH (08:39)
[2020-10-20] MEDS: Ibuprofen 600 MG TAB PO SCH ×3 (08:39→16:42)
[2020-10-20] MEDS: Icosapent Ethyl 1 GM CAPSULE PO SCH (08:40)
[2020-10-20] MEDS: Gabapentin 300 MG CAP PO SCH ×3 (08:40→16:42)
[2020-10-20] MEDS: Lisinopril 20 MG TAB PO SCH (08:40)
[2020-10-20] MEDS: Enoxaparin Sodium 40 MG/0.4 ML SYRINGE SC SCH (08:40)
--- NOTE | 2020-10-20 11:30 | RAD ---
Esophagram HISTORY: Dysphagia. Vomiting with meals. FINDINGS: Air contrast and single column barium evaluation was performed. Small sliding hiatal hernia . Large amount of gastroesophageal reflux. Diminished primary and secondary peristalsis. Prominent nonpropulsive tertiary type contractions. A 12 mm barium tablet traversed the esophagus without holdup. Postoperative changes of the cervical spine are apparent. No component of obstruction. IMPRESSION : Small sliding hiatal hernia. Large amount of gastroesophageal reflux. Prominent presbyesophagus.
[2020-10-20 16:09] VITALS: BP 137/85; TEMP 98.1
--- NOTE | 2020-10-21 07:02 | EKG ---
Test Reason : Blood Pressure : / mmHG Vent. Rate : 067 BPM Atrial Rate : 067 BPM P-R Int : 158 ms QRS Dur : 148 ms QT Int : 482 ms P-R-T Axes : 058 052 058 degrees QTc Int : 509 ms Normal sinus rhythm with sinus arrhythmia Right bundle branch block Anteroseptal infarct (cited on or before 20-JUL-2020) Abnormal ECG Confirmed by DAGOBERTO SNYDER MD ([id number]) on 10/21/2020 7:02:22 AM Referred By: JOS Confirmed By:DAGOBERTO SNYDER MD
--- NOTE | 2020-10-23 02:45 | PQF ---
CLINICAL DOCUMENTATION CLARIFICATION FORM: Dear : Ryan Lawson Date / Time: 10/23/2020 Please exercise your independent, professional judgment in responding to the clarification form. Clinical indicators are provided on the bottom of this form for your review Please check appropriate box(es): [ x ] Chest pain is due to reflux [ ] Chest pain is due to CHF exacerbation [ ] Chest pain is due to percarditis [ ] Chest pain is due to musculoskeletal etiology [ ] Other diagnosis [ ] Unable to determine In addition, please specify: Present on Admission (POA): [x ] Yes [ ] No [ ] Unable to determine To be completed by CDI/Coding staff for physician review: Present Clinical Indicators - Signs / Symptoms / Labs Results and Location in Medical Record [ x ] Barium swallow showed significant reflux, which may be causing chest pain. Protnix BID, carafate QID and outpatient GI f/u Progress note 10/20 by Austin Plasencia MD [ x ] Atypical chest pain 2/2 to possible exacerbation of CHF vs MSK vs GI. EKG nonspecific changes. BNP 77 H and P [ x ] Chest pain suggestive of percarditis. Patient presents with pericardial pain, he will be treated with IV Toradol. I will start the patient on Motrin. 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
--- NOTE | 2020-10-23 15:43 | DIS ---
DATE OF ADMISSION: 10/19/2020 DATE OF DISCHARGE: 10/20/2020 RESIDENT: Austin Plasencia MD. ATTENDING: Ryan Lawson MD. CONSULT: * Cardiology was consulted and an echo was performed. Dr. Roy read the echo and believes that the patient has pericarditis. Prescribed ibuprofen. Dr. Mckinley saw the patient as well and thinks that the pain may be unrelated to the pericarditis which is small. PROCEDURES: * Echo on 10/18 showed an EF of 35% to 40%, normal left atrium, akinetic apex. * Barium swallow on 10/20/20 showed a small sliding hiatal hernia, large amount of gastroesophageal reflux. PRIMARY DIAGNOSES: 1. Atypical chest pain secondary to possible exacerbation of CHF versus musculoskeletal versus gastrointestinal. SECONDARY DIAGNOSES: 1. Hypertension 2. Hyperlipidemia 3. 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 Neuropathy 5. Chronic pain 6. Heart failure with reduced ejection fraction. HOME MEDICATIONS: 1. Gabapentin 600 mg p.o. b.i.d. 2. 150 mg daily. 3. Ranexa 500 mg p.o. b.i.d. 4. Vascepa 2 g p.o. b.i.d. 5. Coreg 25 mg p.o. b.i.d. 6. Lipitor 40 mg at bedtime. 7. Aspirin 81 mg p.o. b.i.d. 8. Oxycodone 10 mg p.o. q.4 hours p.r.n. 9. Omeprazole 40 mg p.o. daily. 10. Nitrostat 0.4 mg sublingual q.5 minutes p.r.n. for chest pain. 11. Lisinopril 20 mg daily. 12. Requip 4 mg at bedtime. MEDICATIONS UPON DISCHARGE: 1. Sucralfate 1 g p.o. b.i.d. for 4 weeks. 2. Zofran 4 mg p.o. q.6 hours p.r.n. for nausea and vomiting. 3. Ibuprofen 600 mg p.o. t.i.d. for 7 days. HISTORY OF PRESENT ILLNESS: Mr. Ba is a 60-year-old male with past medical history of CHF who presents with chest pain that started 2 days ago. He called his PCP, Dr. Denise, was instructed to go to the ED. Pain is tight and heavy, like someone sitting on his chest, associated with lightheadedness and shortness of breath. Pain radiates to the left side of his neck. Denies nausea, vomiting. Endorses fatigue, getting up and walking improves pain. The patient states his chest pain is worse while lying flat and has not been able to get good sleep because of this. He has been taking his medications as prescribed. He denies sick contacts, fevers, or chills. In January 2020, he was diagnosed with coronary artery disease by heart catheterization by Dr. Mckinley. His chest pain is currently 6/10. In the ED, he was given nitroglycerin paste. He also had three doses of nitroglycerin paste in the and one dose of morphine. 1. Atypical chest pain. * Troponins were trended which were negative. * EKG had nonspecific changes. * Chest x-ray is within normal limits. * BNP is 77. * Echo was done in January of this year showed EF of 45% to 50%. 3D echo as above shows EF of 35% to 40%. Catheterization showed no blockages in January of 2020 showed a patent LAD with stent in place. We gave GI cocktail which did not improve the symptoms. Cardiology was consulted. * Barium swallow as noted above. Discussed following him outpatient with Dr. Denise * Carafate and Zofran were given 2. Hypertension. * Continue home medication. 3. Hyperlipidemia. * Continue home medications. 4. GERD. * Continue the omeprazole. * Sucralfate added. 5. Neuropathy. * Continue home medications. 6. Chronic pain. * Continue home medications. 7. Heart failure, reduced EF. * Consider continue home. DISCHARGE INSTRUCTIONS: 1. Location: Home. 2. Activity: As tolerated. 3. Diet: Heart healthy. 4. Follow up with Dr. Denise within 7 days of discharge. Consider Surgery consult for sliding hiatal hernia. Job ID: [id number] [facility]
--- NOTE | 2020-10-24 12:48 | PQF ---
CLINICAL DOCUMENTATION CLARIFICATION FORM: Dear : Ryan Lawson Date / Time: 10/24/2020 Please exercise your independent, professional judgment in responding to the clarification form. Clinical indicators are provided on the bottom of this form for your review Please check appropriate box(es): HEART FAILURE: ACUITY [ ] Acute [ ] Acute on Chronic [ X ] Chronic [ ] Other diagnosis [ ] Unable to determine In addition, please specify: Present on Admission (POA): [ X ] Yes [ ] No [ ] Unable to determine To be completed by CDI/Coding staff for physician review: Present Clinical Indicators - Signs / Symptoms / Labs Results and Location in Medical Record [ x ] Atypical chest pain secondary to possible exacerbation of CHF. Heart failure with reduced ejection fraction. Consider continue home medications Discharge summary [ x ] Ejection fraction is visually estimated at 35-40% Echocardiogram report 10/18 [ x ] HFREF. See echo above, consider adding on spironolactone. Lasix given to see if it helps with chest tightness/PND Progress note 10/18 by Ryan Lawson MD [ x ] Congestive heart failure. Status: Acute Progress note 10/19 by Ryan Lawson MD Present Risk Factors Results and Location in Medical Record [ x ] CAD, hypertension, hyperlipidemia Progress note 10/19 by Ryan Lawson MD [ x ] History of CHF H and P Present Treatments Results and Location in Medical Record [ x ] IV Lasix 10/18 Medications [ x ] Echocardiogram report 10/18 Reports [ x ] Cardiology consult 10/18 Reports CDS/Digital Account Supervisor Signature: SJ1 Phone #: Date/Time: 10/24/2020 This is a permanent part of the Medical Record [facility]
--- NOTE | 2020-10-25 07:02 | EKG ---
Test Reason : NO CHEST PAIN Blood Pressure : / mmHG Vent. Rate : 066 BPM Atrial Rate : 066 BPM P-R Int : 164 ms QRS Dur : 152 ms QT Int : 432 ms P-R-T Axes : 063 043 047 degrees QTc Int : 452 ms Normal sinus rhythm with sinus arrhythmia Right bundle branch block Anterior infarct (cited on or before 20-JUL-2020) Abnormal ECG When compared with ECG of 18-OCT-2020 11:16, (Unconfirmed) No significant change was found Confirmed by DAGOBERTO SNYDER MD ([id number]) on 10/25/2020 7:02:35 AM Referred By: BRENT Confirmed By:DAGOBERTO SNYDER MD
--- NOTE | 2020-10-25 07:05 | EKG ---
Test Reason : C/O CHEST PAIN Blood Pressure : / mmHG Vent. Rate : 068 BPM Atrial Rate : 068 BPM P-R Int : 160 ms QRS Dur : 144 ms QT Int : 444 ms P-R-T Axes : 057 031 053 degrees QTc Int : 472 ms Normal sinus rhythm with sinus arrhythmia Right bundle branch block Anteroseptal infarct (cited on or before 20-JUL-2020) Abnormal ECG When compared with ECG of 19-OCT-2020 17:20, (Unconfirmed) No significant change was found Confirmed by DAGOBERTO SNYDER MD ([id number]) on 10/25/2020 7:04:33 AM Referred By: BRENT Confirmed By:DAGOBERTO SNYDER MD
== END 2020-10-20 17:25 | disposition home or self-care (01) | DRG 392 ==
LOC: ERS 17:07 → 2NO 18:18 → OBSVTOIN 10-19 16:48
PROVIDERS: ADMIT Internal Medicine; ATTEND Internal Medicine
DX: K21.9 Gastro-esophageal reflux disease without esophagitis (principal); I31.9 Disease of pericardium, unspecified; I50.22 Chronic systolic (congestive) heart failure; I25.10 Atherosclerotic heart disease of native coronary artery without angina pectoris; E78.5 Hyperlipidemia, unspecified; G89.29 Other chronic pain; G62.9 Polyneuropathy, unspecified; I11.0 Hypertensive heart disease with heart failure; Z20.828 Contact with and (suspected) exposure to other viral communicable diseases; F41.9 Anxiety disorder, unspecified; F32.9 Major depressive disorder, single episode, unspecified; K22.70 Barrett's esophagus without dysplasia; Z88.8 Allergy status to other drugs, medicaments and biological substances; Z79.82 Long term (current) use of aspirin; Z98.890 Other specified postprocedural states; Z95.1 Presence of aortocoronary bypass graft; Z95.5 Presence of coronary angioplasty implant and graft; Z82.49 Family history of ischemic heart disease and other diseases of the circulatory system; K44.9 Diaphragmatic hernia without obstruction or gangrene; Z79.891 Long term (current) use of opiate analgesic; Z79.899 Other long term (current) drug therapy
CPT/HCPCS: 36415; 74220; 80048; 80061; 83880; 84443; 84484; 85007; 85027; 87635; 93005; 93010; 93306; 96372; 96374; 96375; G0378; J1650; J1885; J1940; J2270; J2405; Q0162; U0003

== ENCOUNTER 2020-11-01 19:30 | Outpatient (CLI) | payer MEDICARE | END 2020-11-01 19:31 | disposition home or self-care (01) | LOC: SLEEPLAB 19:30 | PROVIDERS: ATTEND Internal Medicine | DX: G47.33 Obstructive sleep apnea (adult) (pediatric) (principal); K21.9 Gastro-esophageal reflux disease without esophagitis; F41.9 Anxiety disorder, unspecified; R53.83 Other fatigue; R51.9 Headache, unspecified; I10 Essential (primary) hypertension; I21.9 Acute myocardial infarction, unspecified; G47.31 Primary central sleep apnea | CPT/HCPCS: 95811 ==

== ENCOUNTER 2020-12-16 21:24 | Inpatient (IN) | payer MEDICARE ==
[2020-12-16] MEDS ORDERED: Aspirin Chewable 81 MG TAB ONE (22:23)
[2020-12-16] MEDS ORDERED: Morphine 4 MG/ML VIAL ONE (22:48)
[2020-12-16] MEDS ORDERED: Ondansetron PF 4 MG/2 ML Vial ONE (22:49)
[2020-12-16] MEDS ORDERED: Nitroglycerin 2% Ointment 1 INCH/1 GM Packet ONE (23:27)
[2020-12-16] MEDS ORDERED: Ketorolac Tromethamine 30 MG/ML VIAL ONE (23:27)
--- NOTE | 2020-12-16 23:39 | PDOC.FPRHP ---
- History of Present Illness Chief Complaint: Chest pain transfer History of Present Illness: 60yo male with pmh of CAD s/p stent in 2009 and GA in 2011 and 2013. Previous care was received in [place], moved to [facility] ~1 yr ago. Patient reports was eating a burger in a restaurant and was about to leave when he had sudden onset constant of squeezing chest pain that was somewhat relieved with nitro. The pain was nonpositional, nonexertional, and radiated to left shoulder and neck. About 1 hr later chest pain returned after an episode of vomiting when he got home at around 330 PM. He was evaluated in [place]. Currently endorses sharp pain, nitro patch was placed 20min ago and reports pain has improved from 7 to 6/10. Per Dr Mckinley note in 01/19/20 he has had over 40 hospitalizations for chest pain in the last 5 yrs. This is the 11th time he has been evaluated for chest pain in the last year. He had a cardiac cath on 01/25/20 with patent proximal LAD stent, 50% lesion in mid LAD, 40% distal lesion and 30% lesion in left circumflex. ECHO 10/2020 showed EF 35-40% with an akinetic apex. ED Course: Patient was seen at [facility] in [place] and received 1L NS bolus, 4 mg Zofran, 4 mg Morphine. Per ED report, they discussed patient with Dr. Marin who recommended patient be seen at [facility] and was transferred. At [facility] patient received 30 mg Toradol, 1 in Nitro paste, 4 mg Morphine, 4 mg Zofran IV, ASA 162 mg. - Allergies/Adverse Reactions Allergies Allergy/AdvReac Type Severity Reaction Status Date / Time fentanyl [From Duragesic] Allergy Nausea Verified 12/17/20 02:05 quinine Allergy Nausea Verified 12/17/20 02:05 - Home Medications Medication Instructions Recorded Confirmed Type Aspirin [Adult Low Dose Aspirin EC] 81 mg PO BID 01/19/20 12/17/20 History Atorvastatin Calcium [Lipitor] 40 mg PO HS 01/19/20 12/17/20 History Carvedilol [Coreg] 25 mg PO BID 01/19/20 12/17/20 History Lisinopril 20 mg PO DAILY 01/19/20 12/17/20 History Nitroglycerin [Nitrostat] 0.4 mg SL Q5MIN PRN #30 tab 01/19/20 12/17/20 Rx OxyCODONE IR [oxyCODONE HCl] 10 mg PO Q4HR 01/19/20 12/17/20 History Venlafaxine HCl [Venlafaxine HCl 150 mg PO QAM 01/24/20 12/17/20 History ER] Ranolazine [Ranexa] 500 mg PO BID #60 tab 01/26/20 12/17/20 Rx Icosapent Ethyl [Vascepa] 2 gm PO BID 07/20/20 12/17/20 History Omeprazole 40 mg PO DAILY 07/20/20 12/17/20 History rOPINIRole HCl [Requip] 4 mg PO HS 07/20/20 12/17/20 History Sucralfate [Carafate] 1 gm PO BID 30 Days #60 tab 10/20/20 12/17/20 Rx Gabapentin 2 tab PO BID 12/17/20 12/17/20 History - History PMHx: GA 2009, 2011, [address] stent placement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 HTN, GERD, Simpson's esophagus, HLD, HFrEF (EF 35-40% 10/2020), hiatal hernia PSHx: Multiple ortho surgeries, carpal tunnel x2, multiple hernia repairs. FHx: Mother first GA in 60's. Father GA at 18yrs- at 52 of heart disease. Grandparents and 2 brothers with heart disease Social: Occasional alcohol use. Denies current or former tobacco use. Used medical marijuana in [place] until he moved her around a year ago. - Review of Systems General: denies: fever/chills, fatigue Eyes: denies: eye pain, vision changes ENT: denies: nasal congestion, rhinorrhea Respiratory: denies: cough, congestion, shortness of breath Cardiovascular: reports: chest pain. denies: orthopnea Gastrointestinal: reports: nausea, vomiting. denies: diarrhea, constipation Genitourinary: denies: incontinence, dysuria, polyuria Skin: denies: rashes, lesions Musculoskeletal: denies: pain, arthritis/arthralgias Neurological: reports: other (headache). denies: syncope - Vital signs BP: 120/76 HR: 67 RR: 16 Tmax: 98.7 Pox: 98% on RA Wt: 81 kg - Physical Exam Constitutional: NAD, awake, alert and oriented, well developed HEENT: normocephalic and atraumatic, conjunctiva clear, no scleral icterus, grossly normal hearing Neck: supple, trachea midline Heart: RRR, no murmurs/rubs/gallops, no edema Lungs: CTAB, no respiratory distress, good air movement, no rales/rhonchi, no wheezing Abdomen: soft, non-tender, bowel sounds present Musculoskeletal: normal structure Neurological: no focal deficit Skin: no rash/lesions, good turgor Heme/Lymphatic: no unusual bruising or bleeding Psychiatric: normal mood and affect, good judgment and insight, intact recent and remote memory FMR H&P: Results - Labs Lab results: Review [facility] visit for labs. Of note, Trop <0.010, WBC mildly elevated, CMP wnl. trop <0.010 on repeat. - EKG Interpretation EKG: Nonspecific changes, T wave inversions, no changes from studies done in July. - Radiology Interpretation Chest x-ray Status: report reviewed by me Additional comment: No acute cardiopulmonary process FMR H&P: A/P - Plan Typical chest pain - Significant hx of GERD and CAD that could be contributing to pain - Troponin negative, no changes on EKG - Nitro PRN for pain - Consult Cardiology in AM HFrEF - continue home medications - monitor fluid status, euvolemic on exam - Hold Beta blockers GERD - Protonix QD HTN - Home medications HLD - Home medications DVT ppx: none, pt low risk GI ppx: protonix Code: DNR Diet: NPO, meds with sips PCP: Howie Dispo: Admit tele obs, eLOS < 48 hrs FMR H&P: Upper Level - Pertinent history 60yo male with pmh of CAD s/p angioplasty and stent placement in 2009, 2011 and 2013 presents as a transfer from [place] for chest pain. Pain started at 3pm while sitting. Described as constant squeezing that radiated to left shoulder and neck relieved with Nitro. No improvement with position change. Not worse with exertion. Pain recurred about 1hr later. Rates pain at 6/10, minimal improvement after Nitro patch placed here. Per Dr Mckinley note in 01/19/20 pt had over 40 hospitalizations for chest pain in the last 5 yrs. This is the 11th time he has been evaluated for chest pain in the last year since moving here. He had a cardiac cath on 01/25/20 with patent proximal LAD stent, 50% lesion in mid LAD, 40% distal lesion and 30% lesion in left circumflex. PE: General: NAD CV: RRR, no murmur. Pain nonreproducible Pulm: CTA b/l Abdomen: Nontender Extremities: No edema A/P: Typical chest pain -Initial trop neg, CXR no acute findings, EKG and repeat EKG with no signs of acute ischemia. HEART score: 4. Continue to trend trops. Admit to telemetry. NPO at midnight, hold BB. Consult cardiology in AM- was contacted from OSH. EKG for change in chest pain. - Plan Date/Time: 12/16/20 7559 I, Vikki Franks, have evaluated this patient and agree with findings/plan as outlined by internal medicine hospitalist resident. Pertinent changes/additions are listed here. Addendum - Attending - Attending Attestation Date/Time: 12/17/20 1230 I personally evaluated the patient and discussed the management with Dr. Agudelo. I agree with the History, Examination, Assessment and Plan documented above with any addition or exceptions noted below.
[2020-12-17 02:58] LABS: Troponin I 0.019 ng/mL (< 0.028)
[2020-12-17] MEDS ORDERED: Calcium Carbonate 500 MG ChewTAB PO PRN (04:05)
[2020-12-17] MEDS ORDERED: Acetaminophen 325 MG TAB PO PRN (04:05)
[2020-12-17] MEDS ORDERED: Acetaminophen 650 MG Suppository PR PRN (04:05)
[2020-12-17] MEDS ORDERED: Naloxone HCl 2 mg/2 ml Syringe ONE (04:17)
[2020-12-17 06:14] LABS: Troponin I Less than 0.010 ng/mL (< 0.028)
[2020-12-17] MEDS ORDERED: Gabapentin 300 MG CAP PO SCH (09:00)
[2020-12-17] MEDS ORDERED: Non-Formulary Item 1 EACH (Gabapentin [Gabapentin] 600 MG Tablet) PO SCH (09:00)
[2020-12-17] MEDS: Gabapentin 300 MG CAP PO SCH ×2 (09:04→20:51)
[2020-12-17] MEDS: Icosapent Ethyl 1 GM CAPSULE PO SCH ×2 (09:04→20:48)
[2020-12-17] MEDS: Lisinopril 20 MG TAB PO SCH (09:04)
[2020-12-17] MEDS: Aspirin 81 mg Enteric Coated Tablet PO SCH ×2 (09:04→20:54)
[2020-12-17] MEDS: oxyCODONE 5 MG TAB PO SCH ×4 (10:26→20:54)
[2020-12-17] MEDS: Venlafaxine HCl XR 150 MG CAP PO SCH (10:26)
[2020-12-17] MEDS: Sucralfate 1 GM TAB PO SCH ×2 (10:26→20:53)
[2020-12-17] MEDS: Carvedilol 25 MG TAB PO SCH ×2 (10:26→20:55)
[2020-12-17 10:58] LABS: SARS-CoV-2 PCR by NAA Not Detected (NotDetected)
[2020-12-17] MEDS ORDERED: Ketorolac Tromethamine 30 MG/ML VIAL IVP SCH (14:00)
[2020-12-17] MEDS ORDERED: Enoxaparin Sodium 100 MG/ML SYRINGE SC SCH (14:00)
--- NOTE | 2020-12-17 18:24 | CON ---
DATE OF CONSULTATION: 12/17/2020 PRIMARY PESTICIDE CHEMIST: Dr. Shawn Mckinley. REASON FOR CONSULTATION: Recurrent chest pain. HISTORY OF PRESENT ILLNESS: Mr. Ba is a 60-year-old gentleman with history of coronary artery disease, previous stent implantation, and myocardial infarction. He has a long history of chest pain as is outlined extensively in the chart. He does have a history of an extensive myocardial infarction in the past. Due to recurrent chest pain, he underwent cardiac catheterization by Dr. Mckinley about a year ago. He had coronary artery disease, but no obstructive stenosis. The patient has had multiple episodes of chest pain since then. The catheterization was done on 01/24/2020. The patient was admitted here in October with chest pain, it was thought to be more pericardial pain. He says he has been doing well until recently, but now he has been having pain in the left side of his chest intermittently coming and going, sometimes it feels like it will start to "stutter" and then get worse and then gradually get better. He got nitroglycerin. He is not sure if it really helped much. It seemed to relieve the pain some, but they would come back. He got morphine in the emergency room in [place]. The patient's pain went away, but says now it is coming back. MEDICINES: He takes: 1. Hydrocodone. 2. Carvedilol. 3. Aspirin. 4. Lisinopril. 5. Atorvastatin. 6. Ranolazine. 7. Sucralfate. 8. Gabapentin. ALLERGIES: TO FENTANYL AND QUININE. REVIEW OF SYSTEMS: CONSTITUTIONAL: No significant weight gain or loss. VISION: No changes. HEARING: No changes. PULMONARY: No cough or wheezing. GASTROINTESTINAL: No nausea, vomiting, or diarrhea. SKIN: No rashes. NEUROLOGIC: No unilateral weakness or numbness. PSYCHIATRIC: No unusual depression or anxiety, although he is frustrated with his recurrent pain. PHYSICAL EXAMINATION: GENERAL: This is a pleasant 60-year-old man, still having chest pain. VITAL SIGNS: Blood pressure 117/76; pulse 70, it is regular. NECK: Veins normal. Carotid, normal upstrokes. No bruits. LUNGS: Clear. CARDIAC: There is no murmur, rub, or gallop. Normal S1, normal S2. ABDOMEN: Soft, nontender. EXTREMITIES: Warm, dry. No clubbing. No cyanosis or edema. LABORATORY AND DIAGNOSTIC DATA: EKG shows right bundle-branch block with an old anterior myocardial infarction. No acute ST changes. Looks like there is an extensive previous anterior infarct. Cardiac catheterization done by Dr. Mckinley in January 2020 revealed a stent in the LAD with no stenosis. LAD, diffuse disease, mid and distal area, multiple 30% to 50% plaques. Circumflex, 30%. Right coronary, small, nondominant, no stenosis. Stress test was done, January 2020, revealed a large area of scar, involved the septum, with no ischemia. Also indicated there is infarct in the anterior and inferior scar. Reviewing the records, looks like there is a pretty extensive anterior apical scar on the stress test. The COVID test was negative. Troponin levels are all normal. ASSESSMENT: 1. Chest pain of uncertain etiology. 2. Coronary artery disease with previous stent implantation. 3. Previous myocardial infarction. PLAN: 1. We will give him Lovenox. 2. We will increase Ranexa dose in case this is a small vessel disease. 3. A single dose of Toradol will be given. 4. Continue to follow with you. Job ID: [id number]
[2020-12-17] MEDS: rOPINIRole HCl 1 MG TAB PO SCH (20:50)
[2020-12-17] MEDS: Atorvastatin Calcium 40 MG TAB PO SCH (20:53)
[2020-12-18] MEDS: oxyCODONE 5 MG TAB PO SCH ×6 (01:36→21:15)
--- NOTE | 2020-12-18 07:25 | PDOC.FM ---
- Subjective Subjective: Pt states last nigh the has a "twinge," of CP, but the CP is resolved this morning without any SOB or cough either. moved around room as well without CP. 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 - Objective MAR Reviewed: Yes Vital Signs & Weight: Vital Signs (12 hours) Temp Pulse Resp BP BP Pulse Ox 12/18/20 05:17 97.5 F L 75 20 165/92 H 95 12/17/20 23:36 98.5 F 67 20 131/81 94 L 12/17/20 20:41 98.5 F 72 18 135/79 96 Weight Weight 80.9 kg I&O: 12/17/20 12/18/20 12/19/20 06:59 06:59 06:59 Intake Total 0 1805 Output Total 0 1500 Balance 0 305 Phys Exam - Physical Examination Constitutional: NAD HEENT: moist MMs, sclera anicteric Neck: supple, full ROM Respiratory: no wheezing, no rales, no rhonchi, clear to auscultation bilateral Cardiovascular: RRR, no significant murmur Gastrointestinal: soft, non-tender, no distention, positive bowel sounds Musculoskeletal: no edema, pulses present Neurological: non-focal, moves all 4 limbs Psychiatric: normal affect, A&O x 3 Skin: no rash, normal turgor, cap refill <2 seconds Dx/Plan (1) Chest pain Code(s): R07.9 - CHEST PAIN, UNSPECIFIED Status: Acute (2) Coronary artery disease Code(s): I25.10 - ATHSCL HEART DISEASE OF [place] CORONARY ARTERY W/O ANG PCTRS Status: Acute (3) HTN (hypertension) Code(s): I10 - ESSENTIAL (PRIMARY) HYPERTENSION Status: Acute (4) Dyslipidemia Code(s): E78.5 - HYPERLIPIDEMIA, UNSPECIFIED Status: Chronic - Plan Plan: Typical chest pain - Significant hx of GERD and CAD that could be contributing to pain - Troponin negative, no changes on EKG - Nitro PRN for pain - Cardiology consulted, Appreciate recommendations: therapeutic lovenox, increase ranexa. will continue to follow as complex cardiac pt. - See;s Dr. Mckinley outpt. Dr. Marin following in hospital. discarge pending recs from cardiology team. HFrEF - continue home medications - monitor fluid status, euvolemic on exam - restart BB's GERD - Protonix QD HTN - Home medications HLD - Home medications DVT ppx: therapeutic lovenox GI ppx: protonix Code: DNR Diet: HH PCP: Howie Dispo: Admit tele obs, eLOS < 48 hrs Addendum - Attending - Attending Attestation Date/Time: 12/18/20 8209 I personally evaluated the patient and discussed the management with Dr. Veliz. I agree with the History, Examination, Assessment and Plan documented above with any addition or exceptions noted below. Patient notes he is free of chest pain this morning. Will f/u with cardiology recs today.
[2020-12-18] MEDS ORDERED: Enoxaparin Sodium 80 MG/0.8 ML SYRINGE SC SCH (09:00)
[2020-12-18] MEDS: Aspirin 81 mg Enteric Coated Tablet PO SCH ×2 (09:25→21:15)
[2020-12-18] MEDS: Carvedilol 25 MG TAB PO SCH ×2 (09:25→21:21)
[2020-12-18] MEDS: Gabapentin 300 MG CAP PO SCH ×2 (09:26→21:14)
[2020-12-18] MEDS: Lisinopril 20 MG TAB PO SCH (09:27)
[2020-12-18] MEDS: Sucralfate 1 GM TAB PO SCH ×2 (09:27→21:14)
[2020-12-18] MEDS: Venlafaxine HCl XR 150 MG CAP PO SCH (09:27)
[2020-12-18] MEDS: Icosapent Ethyl 1 GM CAPSULE PO SCH ×2 (12:01→21:22)
--- NOTE | 2020-12-18 19:29 | PRG ---
DATE OF SERVICE: 12/18/2020 SUBJECTIVE: Mr. Ba states he feels somewhat better, but he still is having chest pain intermittently. He said he was feeling fine until he got up and walked to the bathroom, started having chest pain again, now it has resolved. OBJECTIVE: VITAL SIGNS: Blood pressure 148/89, pulse 66 and regular. LUNGS: Clear. CARDIAC: Normal S1, normal S2. ABDOMEN: Soft and nontender. ASSESSMENT: 1. Coronary artery disease, nonobstructive. A catheterization less than a year ago. 2. Previous myocardial infarction. 3. Chest pain of uncertain etiology? small vessel disease did not seem to respond to anti-inflammatories. PLAN: 1. Stop enoxaparin. 2. We will add amlodipine. 3. Dr. Mckinley to resume care tomorrow, difficult situation in this gentleman. Certainly, we would wish to try to control blood pressure, give calcium blockers as much as possible. Keep the LDL cholesterol low, which he has been doing and Ranexa dose is increased. Job ID: [id number]
[2020-12-18] MEDS: rOPINIRole HCl 1 MG TAB PO SCH (21:14)
[2020-12-18] MEDS: Atorvastatin Calcium 40 MG TAB PO SCH (21:15)
[2020-12-19] MEDS: oxyCODONE 5 MG TAB PO SCH ×6 (00:54→21:37)
[2020-12-19 05:09] VITALS: BMI 28.0
--- NOTE | 2020-12-19 08:04 | PDOC.FM ---
- Subjective Subjective: Had CP @ 15:30 yesterday, but nothing since Reports felling fine Cardiology, Dr. Mckinley to see pt today and decide dispo plan - Objective MAR Reviewed: Yes Vital Signs & Weight: Vital Signs (12 hours) Temp Pulse Resp BP Pulse Ox 12/19/20 07:34 98.0 F 62 20 135/89 95 12/19/20 04:11 97.9 F 64 16 135/77 96 12/19/20 00:00 98.5 F 85 16 120/75 94 L Weight Weight 81.1 kg I&O: 12/18/20 12/19/20 12/20/20 06:59 06:59 06:59 Intake Total 1805 Output Total 1500 1900 Balance 305 -1900 Phys Exam - Physical Examination Constitutional: NAD HEENT: moist MMs, sclera anicteric Neck: no nodes, supple, full ROM Respiratory: no wheezing, no rales, no rhonchi, clear to auscultation bilateral Cardiovascular: RRR, no significant murmur Gastrointestinal: soft, non-tender, no distention, positive bowel sounds Musculoskeletal: no edema, pulses present Neurological: non-focal, moves all 4 limbs Psychiatric: normal affect, A&O x 3 Skin: normal turgor, cap refill <2 seconds Dx/Plan (1) Chest pain Code(s): R07.9 - CHEST PAIN, UNSPECIFIED Status: Acute (2) Coronary artery disease Code(s): I25.10 - ATHSCL HEART DISEASE OF [place] CORONARY ARTERY W/O ANG PCTRS Status: Acute (3) HTN (hypertension) Code(s): I10 - ESSENTIAL (PRIMARY) HYPERTENSION Status: Acute (4) Dyslipidemia Code(s): E78.5 - HYPERLIPIDEMIA, UNSPECIFIED Status: Chronic - Plan Plan: Typical chest pain - Significant hx of GERD and CAD that could be contributing to pain - Troponin negative, no changes on EKG - Nitro PRN for pain - Cardiology consulted, Appreciate recommendations: therapeutic lovenox discontinued, increase ranexa, continue atorvastatin and stared CCB amlodipine. will continue to follow as complex cardiac pt. - See's Dr. Mckinley outpt. Dr. Marin followed in hospital over weekend, Dr. Mckinley to resume care today. discharge pending recs from cardiology team. HFrEF - continue home medications, added amlodipine. - monitor fluid status, euvolemic on exam - restart BB's GERD - Protonix QD HTN - Home medications HLD - Home medications DVT ppx: therapeutic lovenox GI ppx: protonix Code: DNR Diet: [place] PCP: Howie Dispo: Admit tele obs, eLOS < 48 hrs Addendum - Attending - Attending Attestation Date/Time: 12/19/20 [id number] I personally evaluated the patient and discussed the management with Dr. Veliz I agree with the History, Examination, Assessment and Plan documented above with any addition or exceptions noted below - Patient without complaints. No further chest pain since yesterday afternoon. Afebrile VSS. A/P: 1) Chest pain- await cardiology recommendations. Possible d/c home.
[2020-12-19] MEDS: Gabapentin 300 MG CAP PO SCH ×2 (08:44→21:36)
[2020-12-19] MEDS: Lisinopril 20 MG TAB PO SCH (08:45)
[2020-12-19] MEDS: Venlafaxine HCl XR 150 MG CAP PO SCH (08:46)
[2020-12-19] MEDS: Carvedilol 25 MG TAB PO SCH (08:46)
[2020-12-19] MEDS: Aspirin 81 mg Enteric Coated Tablet PO SCH ×2 (08:46→21:36)
[2020-12-19] MEDS: Amlodipine 5 MG TAB PO SCH (08:46)
[2020-12-19] MEDS: Sucralfate 1 GM TAB PO SCH ×2 (09:59→21:40)
[2020-12-19] MEDS: Icosapent Ethyl 1 GM CAPSULE PO SCH ×2 (09:59→22:38)
--- NOTE | 2020-12-19 17:24 | PDOC.CPN ---
- Subjective Date: 12/19/20 Time: 15:30 Interval history: No overnight events, he has not had any episodes of chest pain since yesterday. He did not have any EKG changes overnight. - Review of Systems General: denies: fever/chills, weight/appetite/sleep changes, night sweats, fatigue Respiratory: denies: cough, congestion, shortness of breath, exercise intolerance Cardiovascular: denies: chest pain, palpitation, edema, paroxysmal nocturnal dyspnea, orthopnea Gastrointestinal: denies: nausea, vomiting, diarrhea, constipation, abd pain, GI bleeding Musculoskeletal: denies: pain, tenderness, stiffness, swelling, arthritis/arthralgias Neurological: denies: numbness, syncope, seizure, weakness - Objective Allergies/Adverse Reactions: Allergies Allergy/AdvReac Type Severity Reaction Status Date / Time fentanyl [From Duragesic] Allergy Nausea Verified 12/17/20 02:05 quinine Allergy Nausea Verified 12/17/20 02:05 Visit Medications: Current Medications Acetaminophen (Acetaminophen 325 Mg Tab) 650 mg PO Q4H PRN PRN Reason: Headache/Fever/Mild Pain (1-3) Acetaminophen (Acetaminophen 650 Mg Suppository) 650 mg [place] Q4H PRN PRN Reason: Headache/Fever/Mild Pain (1-3) Amlodipine Besylate (Amlodipine 5 Mg Tab) 5 mg PO DAILY [facility] Last Admin: 12/19/20 08:46 Dose: 5 mg Documented by: Aspirin (Aspirin 81 Mg Enteric Coated Tablet) 81 mg PO BID [facility] Last Admin: 12/19/20 08:46 Dose: 81 mg Documented by: Atorvastatin Calcium (Atorvastatin Calcium 40 Mg Tab) 40 mg PO HS [facility] Last Admin: 12/18/20 21:15 Dose: 40 mg Documented by: Calcium Carbonate (Calcium Carbonate 500 Mg Chewtab) 1,000 mg PO Q4H PRN PRN Reason: Heartburn or Indigestion Carvedilol (Carvedilol 25 Mg Tab) 25 mg PO BID [facility] Last Admin: 12/19/20 08:46 Dose: 25 mg Documented by: Gabapentin (Gabapentin 300 Mg Cap) 1,200 mg PO BID [facility] Last Admin: 12/19/20 08:44 Dose: 1,200 mg Documented by: Lisinopril (Lisinopril 20 Mg Tab) 20 mg PO DAILY [facility] Last Admin: 12/19/20 08:45 Dose: 20 mg Documented by: Miscellaneous Medication (Icosapent Ethyl 1 Gm Capsule) 2 gm PO BID [facility] Last Admin: 12/19/20 09:59 Dose: 2 gm Documented by: Oxycodone HCl (Oxycodone 5 Mg Tab) 10 mg PO Q4HR [facility] Last Admin: 12/19/20 17:20 Dose: 10 mg Documented by: Pantoprazole Sodium (Pantoprazole 40 Mg Tab) 40 mg PO DAILY [facility] Last Admin: 12/19/20 08:46 Dose: 40 mg Documented by: Ranolazine (Ranolazine 500 Mg Tab) 1,000 mg PO BID [facility] Last Admin: 12/19/20 08:44 Dose: 1,000 mg Documented by: Ropinirole HCl (Ropinirole Hcl 1 Mg Tab) 4 mg PO HS [facility] Last Admin: 12/18/20 21:14 Dose: 4 mg Documented by: Sodium Chloride (Flush - Normal Saline 10 Ml Syringe) 10 ml IVF PRN PRN PRN Reason: Saline Flush Last Admin: 12/18/20 21:13 Dose: 10 ml Documented by: Sucralfate (Sucralfate 1 Gm Tab) 1 gm PO BID [facility] Last Admin: 12/19/20 09:59 Dose: 1 gm Documented by: Venlafaxine HCl (Venlafaxine Hcl Xr 150 Mg Cap) 150 mg PO QAM [facility] Last Admin: 12/19/20 08:46 Dose: 150 mg Documented by: Vital Signs & Weight: Vital Signs Temp Pulse Resp BP Pulse Ox 12/19/20 11:48 97.6 F 66 20 140/77 96 12/19/20 07:34 98.0 F 62 20 135/89 95 Weight 178 lb 12.718 oz - Quality Measures Condition: Coronary Artery Disease CV meds: Beta Joseph: Yes, WENDY/ARB: Yes, Statin: Yes, ASA: Yes - Physical Exam General: alert & oriented x3, appears well, no apparent distress HEENT: mucus membranes moist Neck: supple neck, no JVD/HJR, no bruit Cardiac: regular rate and rhythm, no murmur, S1/S2 Lungs: clear to auscultation, normal breath sounds, no wheeze, rales, rhonchi Neuro: grossly intact Abdomen: active bowel sounds, soft, non-tender, no masses Extremities: no cyanosis, no clubbing, no edema, 2+ popliteal, 2+ Posterior Tibial, 2+ Dorsalis Pedus Skin: clear Musculoskeletal: normal range of motion, no pain - Labs Troponin/CKMB Troponin I Less than 0.010 ng/mL (< 0.028) 12/17/20 05:26 - EKG Interpretation EKG Method: Telemetry (PAC's, BBB) EKG: sinus rhythm - Assessment/Plan Assessment/Plan: 1. Coronary artery disease: His [facility] in 01/2020 showed a patent proximal LAD stent, 50% lesion in the mid LAD, 40% distal LAD lesion, 30% stenosis to left circumflex. Due to continued chest pain episodes that occur 3-4 times weekly and are increasing in frequency and severity, will order stress test to evaluate for any changes. He has been started on Amlodipine and his dose of Ranexa was increased. 2. Previous myocardial infarction: [facility] 01/2020 did show a patent stent to the proximal LAD. Pt. seen and eval. by me. I agree with the A/P by the [employer]OD [employer] DELIVERY [employer]NER. Chest clear. RRR. No edema. Await stress test results. Possible cath based on findings of stress test. young
[2020-12-19] MEDS: Atorvastatin Calcium 40 MG TAB PO SCH (21:36)
[2020-12-19] MEDS: rOPINIRole HCl 1 MG TAB PO SCH (21:39)
[2020-12-20] MEDS: oxyCODONE 5 MG TAB PO SCH ×5 (01:18→17:03)
[2020-12-20] MEDS: Icosapent Ethyl 1 GM CAPSULE PO SCH ×2 (01:19→12:51)
--- NOTE | 2020-12-20 07:47 | PDOC.FM ---
- Subjective Subjective: Stress test this AM Pt states he has not had continued CP He did however have some nausea overnight with associated diaphoresis that is resolved now. - Objective Vital Signs & Weight: Vital Signs (12 hours) Temp Pulse Resp BP Pulse Ox 12/20/20 01:22 98.2 F 68 18 133/86 97 Weight Weight 80.5 g I&O: 12/19/20 12/20/20 12/21/20 06:59 06:59 06:59 Intake Total 1135 Output Total 1900 1710 Balance -1900 -575 Phys Exam - Physical Examination Constitutional: NAD HEENT: moist MMs, sclera anicteric Neck: no JVD, supple, full ROM Respiratory: no wheezing, no rales, no rhonchi, clear to auscultation bilateral Cardiovascular: RRR, no significant murmur, no rub Gastrointestinal: soft, non-tender, no distention, positive bowel sounds Musculoskeletal: no edema, pulses present Neurological: non-focal, moves all 4 limbs Psychiatric: normal affect, A&O x 3 Skin: normal turgor, cap refill <2 seconds Dx/Plan (1) Chest pain Code(s): R07.9 - CHEST PAIN, UNSPECIFIED Status: Acute (2) Coronary artery disease Code(s): I25.10 - ATHSCL HEART DISEASE OF [place] CORONARY ARTERY W/O ANG PCTRS Status: Acute (3) HTN (hypertension) Code(s): I10 - ESSENTIAL (PRIMARY) HYPERTENSION Status: Acute (4) Dyslipidemia Code(s): E78.5 - HYPERLIPIDEMIA, UNSPECIFIED Status: Chronic - Plan Plan: Typical chest pain - Significant hx of GERD and CAD that could be contributing to pain - Troponin negative, no changes on EKG - Nitro PRN for chest pain - Cardiology consulted, Appreciate recommendations: therapeutic lovenox discontinued, increase ranexa, continue atorvastatin and stared CCB amlodipine. will continue to follow as complex cardiac pt. - See's Dr. Mckinley outpt. Dr. Marin followed in hospital over weekend, Dr. Mckinley to resume care. Plans for stress test today. Dispo pending cardiology recs. HFrEF - continue home medications, added amlodipine. - monitor fluid status, euvolemic on exam - hold bb for stress GERD - Protonix QD HTN - Home medications, added amlodipine HLD - Home medications DVT ppx: therapeutic lovenox GI ppx: protonix Code: DNR Diet: HH PCP: Howie Dispo: Admit tele obs, eLOS < 48 hrs Addendum - Attending - Attending Attestation Date/Time: 12/21/20 1603 I personally evaluated the patient and discussed the management with Dr. Veliz on 12/20/2020 I agree with the History, Examination, Assessment and Plan documented above with any addition or exceptions noted below - Patient without complaints. Afebrile VSS A/P: 1) Chest pain in setting of known CAD- stress test completed and results pending. Await further recommendations from cardiology. Anticipate d/c home if stress negative.
[2020-12-20] MEDS ORDERED: ADENOSINE 60 MG/20 ML VIAL ONE (09:46)
[2020-12-20] MEDS: Gabapentin 300 MG CAP PO SCH (12:47)
[2020-12-20] MEDS: Amlodipine 5 MG TAB PO SCH (12:49)
[2020-12-20] MEDS: Venlafaxine HCl XR 150 MG CAP PO SCH (12:50)
[2020-12-20] MEDS: Aspirin 81 mg Enteric Coated Tablet PO SCH (12:50)
[2020-12-20] MEDS: Lisinopril 20 MG TAB PO SCH (12:50)
[2020-12-20] MEDS: Sucralfate 1 GM TAB PO SCH (12:53)
--- NOTE | 2020-12-20 14:24 | NM ---
EXAM: NM Cardiac Stress W EF WF PROVIDED CLINICAL HISTORY: Chest pain. COMPARISON: 01/19/2020 FINDINGS: This examination is performed as a pharmacologic myocardial stress test after administration of adeno sine intravenously. Again, there is heterogeneity of uptake of radiotracer within the left ventricular myocardium involvi ng the anterior wall and septum with predominantly diminished uptake seen involving the distal septum and anterior wall as well as distal inferior wall on both the resting and stress acquisitions. Uptake within the left ventricular myocardium is similar to the prior exam. Quantitative analysis also demonstrates a similar fixed defect involving the left ventricular myocardium. Quantitative anal ysis demonstrates hypokinesis of the septum with dyskinesis of the distal septum as well as hypokinesis of the inferior and anterior left ventricular wall. There is absent thickening involving the distal inferior and anterior alamo as well as septum and apex. Calculated left ventricular ejection fraction is diminished at 50%. This is stable compared to prior exam. IMPRESSION: 1. Abnormal myocardial perfusion study with large area of scarring involving the septum and distal in ferior and anterior anterior alamo and apex. No significant reversible defect is seen to suggest ischemia. 2. LVEF of 50% unchanged from prior study.
--- NOTE | 2020-12-20 15:31 | PDOC.CPN ---
- Subjective Date: 12/20/20 Time: 15:29 Interval history: No chest pain overnight, he did have a small episode of nausea last night, but denies chest pain or shortness of breath. - Review of Systems General: denies: fever/chills, weight/appetite/sleep changes, night sweats, fatigue Respiratory: denies: cough, congestion, shortness of breath, exercise intolerance Cardiovascular: denies: chest pain, palpitation, edema, paroxysmal nocturnal dyspnea, orthopnea Gastrointestinal: denies: nausea, vomiting, diarrhea, constipation, abd pain, GI bleeding Musculoskeletal: denies: pain, tenderness, stiffness, swelling, arthritis/arthralgias Neurological: denies: numbness, syncope, seizure, weakness - Objective Allergies/Adverse Reactions: Allergies Allergy/AdvReac Type Severity Reaction Status Date / Time fentanyl [From Duragesic] Allergy Nausea Verified 12/17/20 02:05 quinine Allergy Nausea Verified 12/17/20 02:05 Visit Medications: Current Medications Acetaminophen (Acetaminophen 325 Mg Tab) 650 mg PO Q4H PRN PRN Reason: Headache/Fever/Mild Pain (1-3) Acetaminophen (Acetaminophen 650 Mg Suppository) 650 mg [place] Q4H PRN PRN Reason: Headache/Fever/Mild Pain (1-3) Amlodipine Besylate (Amlodipine 5 Mg Tab) 5 mg PO DAILY [facility] Last Admin: 12/20/20 12:49 Dose: 5 mg Documented by: Aspirin (Aspirin 81 Mg Enteric Coated Tablet) 81 mg PO BID [facility] Last Admin: 12/20/20 12:50 Dose: 81 mg Documented by: Atorvastatin Calcium (Atorvastatin Calcium 40 Mg Tab) 40 mg PO HS [facility] Last Admin: 12/19/20 21:36 Dose: 40 mg Documented by: Calcium Carbonate (Calcium Carbonate 500 Mg Chewtab) 1,000 mg PO Q4H PRN PRN Reason: Heartburn or Indigestion Gabapentin (Gabapentin 300 Mg Cap) 1,200 mg PO BID [facility] Last Admin: 12/20/20 12:47 Dose: 1,200 mg Documented by: Lisinopril (Lisinopril 20 Mg Tab) 20 mg PO DAILY [facility] Last Admin: 12/20/20 12:50 Dose: 20 mg Documented by: Miscellaneous Medication (Icosapent Ethyl 1 Gm Capsule) 2 gm PO BID [facility] Last Admin: 12/20/20 12:51 Dose: 2 gm Documented by: Oxycodone HCl (Oxycodone 5 Mg Tab) 10 mg PO Q4HR [facility] Last Admin: 12/20/20 12:48 Dose: 10 mg Documented by: Pantoprazole Sodium (Pantoprazole 40 Mg Tab) 40 mg PO DAILY [facility] Last Admin: 12/20/20 12:50 Dose: 40 mg Documented by: Ranolazine (Ranolazine 500 Mg Tab) 1,000 mg PO BID [facility] Last Admin: 12/20/20 12:52 Dose: 1,000 mg Documented by: Ropinirole HCl (Ropinirole Hcl 1 Mg Tab) 4 mg PO HS [facility] Last Admin: 12/19/20 21:39 Dose: 4 mg Documented by: Sodium Chloride (Flush - Normal Saline 10 Ml Syringe) 10 ml IVF PRN PRN PRN Reason: Saline Flush Last Admin: 12/18/20 21:13 Dose: 10 ml Documented by: Sucralfate (Sucralfate 1 Gm Tab) 1 gm PO BID [facility] Last Admin: 12/20/20 12:53 Dose: 1 gm Documented by: Venlafaxine HCl (Venlafaxine Hcl Xr 150 Mg Cap) 150 mg PO QAM [facility] Last Admin: 12/20/20 12:50 Dose: 150 mg Documented by: Vital Signs & Weight: Vital Signs Temp Pulse Resp BP BP Pulse Ox 12/20/20 12:50 165/92 H 12/20/20 12:49 75 12/20/20 07:47 98.0 F 75 20 137/98 H 98 Weight 2.84 oz - Quality Measures Condition: Coronary Artery Disease CV meds: Beta Joseph: Yes, WENDY/ARB: Yes, Statin: Yes, ASA: Yes - Physical Exam General: alert & oriented x3, appears well, no apparent distress HEENT: mucus membranes moist, normocephaly Neck: supple neck, midline trachea, no JVD/HJR, no masses, no bruit Cardiac: regular rate and rhythm, no murmur Lungs: clear to auscultation, normal breath sounds, no wheeze, rales, rhonchi Neuro: grossly intact Abdomen: active bowel sounds, soft, non-tender Extremities: no cyanosis, no clubbing, no edema, 2+ Posterior Tibial, 2+ Dorsalis Pedus Skin: clear Musculoskeletal: no pain - Labs Troponin/CKMB Troponin I Less than 0.010 ng/mL (< 0.028) 12/17/20 05:26 - EKG Interpretation EKG Method: Telemetry EKG: sinus rhythm (BBB) - Assessment/Plan Assessment/Plan: 1. Coronary artery disease: His [facility] in 01/2020 showed a patent proximal LAD stent, 50% lesion in the mid LAD, 40% distal LAD lesion, 30% stenosis to left circumflex. Due to continued chest pain episodes that occur 3-4 times weekly and are increasing in frequency and severity. He has had no chest pain for over 48 hours. His stress test today was stable compared to his previous stress test last year. He is on Ranexa, Amlodipine, Lisinopril, Coreg, Vascepa, Aspirin, and a statin. We will continue these for the treatment of Coronary artery disease. No EKG changes overnight. 2. Previous myocardial infarction: [facility] 01/2020 did show a patent stent to the proximal LAD. From a cardiac standpoint, Mr. Ba it stable for discharge. I have personally discussed his stress test results with him. He will follow-up in one month with Cardiology as an outpatient. He is agreeable with this plan. If his chest pain episodes continue, we will discuss [facility] as an outpatient.
[2020-12-20 16:52] VITALS: BP 120/72; TEMP 97.9
[2020-12-20] MEDS ORDERED: Docusate 100 MG CAP PO PRN (16:59)
--- NOTE | 2020-12-21 10:37 | DIS ---
DATE OF ADMISSION: 12/19/2020 DATE OF DISCHARGE: 12/20/2020 ADMITTING ATTENDING: Dr. Hamilton. DISCHARGE ATTENDING: Dr. Kaiser. CONSULT: Cardiology, Dr. Marin. PROCEDURES: Stress test on 12/20, which showed abnormal myocardial perfusion study with large area of scarring involving the septum and distal inferior and anterior alamo and apex. No significant reversible defect is seen to suggest ischemia, also an LVEF of 50%, unchanged from prior study. DIAGNOSES: 1. Typical chest pain. 2. Heart failure, reduced ejection fraction. 3. Gastroesophageal reflux disease. 4. Hypertension. 5. Hyperlipidemia. DISCONTINUED MEDICATION: Ranexa 500 mg p.o. b.i.d. DISCHARGE MEDICATIONS: 1. Norvasc 5 mg p.o. daily. 2. Aspirin 81 mg p.o. daily. 3. Lipitor 40 mg p.o. at bedtime. 4. Coreg 25 mg p.o. b.i.d. 5. Docusate sodium p.o. daily. 6. Gabapentin 600 mg p.o. b.i.d. 7. Vascepa 2 g p.o. b.i.d. 8. Lisinopril 20 mg p.o. daily. 9. Nitrostat 0.4 mg sublingual q.5 minutes p.r.n. for chest pain. 10. Omeprazole 40 mg p.o. daily. 11. Oxycodone 10 mg p.o. q.4 hours. 12. Ranexa 1000 mg p.o. b.i.d. 13. Requip 4 mg p.o. at bedtime. 14. Carafate 1 g p.o. b.i.d. 15. Venlafaxine 150 mg p.o. q.a.m. HISTORY OF PRESENT ILLNESS/HOSPITAL COURSE: Mr. Ba is a 60-year-old gentleman with a history of CAD, status post stents, came into the emergency department with typical chest pain. He had negative troponins x4. He had a recent catheterization on 01/25/2020 with patent proximal LAD stent, 50% lesion of the mid LAD, 40% distal lesion, and 30% lesion of the left circumflex. Due to this, Cardiology was consulted, who opted to not take back for a catheterization, but to order a stress test. 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 The stress test did not show significant change from previous studies and did not suggest any new ischemic changes, so the patient was cleared for discharge by Cardiology to follow up in outpatient clinic. They also increased his Ranexa to 1000 mg p.o. b.i.d. from the 500 to help with the chest pain. He had an echo on 10/21/2020, which showed an EF of 35% to 40%, and the stress test estimated a left ventricular ejection fraction of 50%. The patient's chest pain did improve upon hospital stay and he felt better. He would just like to figure this out, so he does not want to spend more days in the hospital than he does at home. DISPOSITION: Stable and improved upon discharge. DISCHARGE INSTRUCTIONS: 1. Location: To home. 2. Diet: Heart healthy. 3. Activity: As tolerated. 4. Followup: Follow up with primary care in [address] Mckinley in 2 weeks. Job ID: [id number]
== END 2020-12-20 17:22 | disposition home or self-care (01) | DRG 392 ==
LOC: ERS 21:24 → ERHOLD 12-17 01:37 → 3SE 12-17 04:54 → OBSVTOIN 12-19 10:02
PROVIDERS: ADMIT Family Medicine; ATTEND Family Medicine
DX: K21.9 Gastro-esophageal reflux disease without esophagitis (principal); I50.22 Chronic systolic (congestive) heart failure; I25.10 Atherosclerotic heart disease of native coronary artery without angina pectoris; I11.0 Hypertensive heart disease with heart failure; K22.70 Barrett's esophagus without dysplasia; Z66 Do not resuscitate; F41.9 Anxiety disorder, unspecified; F32.9 Major depressive disorder, single episode, unspecified; G89.29 Other chronic pain; M54.9 Dorsalgia, unspecified; G47.33 Obstructive sleep apnea (adult) (pediatric); E78.00 Pure hypercholesterolemia, unspecified; Z20.822 Contact with and (suspected) exposure to COVID-19; Z88.8 Allergy status to other drugs, medicaments and biological substances; Z95.5 Presence of coronary angioplasty implant and graft; I25.2 Old myocardial infarction; Z98.890 Other specified postprocedural states; Z79.899 Other long term (current) drug therapy; Z79.82 Long term (current) use of aspirin
CPT/HCPCS: 36415; 78452; 84484; 87635; 93005; 93017; 96372; 96374; 96375; 96376; A9500; G0378; J0153; J1650; J1885; J2270; J2310; J2405; U0003; U0005

== ENCOUNTER 2021-01-08 19:29 | Observation (INO) | payer MEDICARE ==
[2021-01-08] MEDS ORDERED: Nitroglycerin 2% Ointment 1 INCH/1 GM Packet ONE (19:55)
[2021-01-08] MEDS ORDERED: Morphine 4 MG/ML VIAL ONE (21:58)
--- NOTE | 2021-01-08 23:01 | PDOC.FPRHP ---
- History of Present Illness Chief Complaint: chest pain History of Present Illness: Pt is a 60 yo M with PMH of GA 2009, 2011, 2013 each with stent placement, HTN, GERD, Simpson's esophagus, HLD, HFrEF (EF 35-40% 10/2020), hiatal hernia who presents with cc of CP. He states he was watching a movie around 2:30pm and he experienced a sharp L sided chest pain that was 8/10 in intensity. He took Nitro x2 which resolved the pain. He then started to experience associated diaphoresis, SOB, left shoulder/neck pain. He states he had other episodes of chest pain since leaving the hospital. He thinks he had 2 episodes since but they were mild and only needed nitro x1. One of the episodes he was resting the other he was walking around at the grocery store. Denies abdominal pain, N/V, diarrhea, edema, fevers, HUNT, vision changes. He was recently hospitalized at the end of December with chest pain and cardiology decided to not cath patient while hospitalized but stated they would if patient experienced more chest pain. He had a stress test done which showed permanent scar near the apex. He follows with Dr. Mckinley ED Course: ASA - Allergies/Adverse Reactions Allergies Allergy/AdvReac Type Severity Reaction Status Date / Time fentanyl [From Duragesic] Allergy Nausea Verified 12/17/20 02:05 quinine Allergy Nausea Verified 12/17/20 02:05 - Home Medications Medication Instructions Recorded Confirmed Type Aspirin [Adult Low Dose Aspirin EC] 81 mg PO BID 01/19/20 12/17/20 History Atorvastatin Calcium [Lipitor] 40 mg PO HS 01/19/20 12/17/20 History Carvedilol [Coreg] 25 mg PO BID 01/19/20 12/17/20 History Lisinopril 20 mg PO DAILY 01/19/20 12/17/20 History Nitroglycerin [Nitrostat] 0.4 mg SL Q5MIN PRN #30 tab 01/19/20 12/17/20 Rx OxyCODONE IR [oxyCODONE HCl] 10 mg PO Q4HR 01/19/20 12/17/20 History Venlafaxine HCl [Venlafaxine HCl 150 mg PO QAM 01/24/20 12/17/20 History ER] Icosapent Ethyl [Vascepa] 2 gm PO BID 07/20/20 12/17/20 History Omeprazole 40 mg PO DAILY 07/20/20 12/17/20 History rOPINIRole HCl [Requip] 4 mg PO HS 07/20/20 12/17/20 History Sucralfate [Carafate] 1 gm PO BID 30 Days #60 tab 10/20/20 12/17/20 Rx Gabapentin 2 tab PO BID 12/17/20 12/17/20 History Ranolazine [Ranexa] 1,000 mg PO BID #120 tab 12/18/20 Rx Amlodipine [Norvasc] 5 mg PO DAILY #30 tab 12/20/20 Rx Docusate Sodium 100 mg PO DAILY #30 capsule 12/20/20 Rx - History PMHx: GA 2009, 2011, 2013 each with stent placement, HTN, GERD, Simpson's esophagus, HLD, HFrEF (EF 35-40% 10/2020), hiatal hernia PSHx: Multiple ortho surgeries, carpal tunnel x2, multiple hernia repairs. FHx: Mother first GA in 60's. Father GA at 18yrs- at 52 of heart disease. Grandparents and 2 brothers with heart disease Social: Occasional alcohol use. Denies current or former tobacco use. Used medical marijuana in [place] until he moved her around a year ago. - Review of Systems General: denies: fever/chills, weight/appetite/sleep changes, night sweats Eyes: denies: vision changes Respiratory: denies: cough, congestion, shortness of breath Cardiovascular: reports: chest pain. denies: palpitation, edema, orthopnea Gastrointestinal: denies: nausea, vomiting, abdominal pain, GI bleeding Skin: denies: rashes, lesions Neurological: denies: numbness, syncope, seizure Psychological: denies: anxiety, depression - Vital signs BP: 126/78 HR: 65 RR: 16 Tmax: 98.3 Pox: 96% on RA Wt: 80kg - Physical Exam Constitutional: NAD, awake, alert and oriented HEENT: normocephalic and atraumatic, PERRLA, EOMI, conjunctiva clear Neck: supple Heart: RRR, normal S1/S2, pulses present, no edema Lungs: CTAB, no respiratory distress, good air movement Abdomen: soft, non-tender Musculoskeletal: normal structure, normal tone Neurological: no focal deficit, CN II-XII intact Skin: no rash/lesions, good turgor Heme/Lymphatic: no unusual bruising or bleeding Psychiatric: normal mood and affect, good judgment and insight FMR H&P: Results - Labs Result Diagrams: 01/09/21 05:26 01/09/21 05:26 - EKG Interpretation EKG: T wave inversions in V1, V2, V3, normal sinus FMR H&P: A/P - Plan Atypical chest pain -relieved with Nitro in ED, also given ASA - Significant hx of GERD and CAD that could be contributing to pain - Troponin negative, no changes on EKG - Nitro PRN for pain - Consult Cardiology in AM. Will likely go for cath as last month cardiology decided to not cath patient while hospitalized but stated they would if patient experienced more chest pain History of GA -multiple stents placed -follows with Dr Mckinley, cardiology HFrEF - last echo EF 35-40% 10/2020 - continue home medications - monitor fluid status, euvolemic on exam - Hold Beta blockers GERD - continue home meds HTN - Home medications HLD - Home medications Restless leg syndome - home meds DVT ppx: none, pt low risk GI ppx: protonix Code: DNR Diet: NPO, meds with sips PCP: Howie Dispo: Admit tele obs, eLOS < 48 hrs FMR H&P: Upper Level - Plan Date/Time: 01/08/212300 I, [Gin Sam], have evaluated this patient and agree with findings/plan as outlined by tax services intern resident. Pertinent changes/additions are listed here. Mr. Ba is a 60 yo M with hx of GA with cardiac stent implantation in 2009who presents as rodriguez tfx for chest pain. Was sitting in chair today when he experienced left sided chest pain radiating to his left arm that felt like his prior cardiac events & was somewaht relieved with nitro. He has a notable cardiac history in which he sees Dr. Mckinley regularly. He was admitted last month for recurrent chest pain & at that time cardiologyaNMST of myocardial scarring around apex in which was essentially unchanged from his NMST a year ago; thus no cardiac cath at that time. His last cardiac cath in 01/2020 showed a patent proximal LAD stent, 50% lesion of the mid LAD, 40% distal lesion & 30% lesion of the left circumflex. His ranexa dosing was increased & he was sent home. Per patient there was discussion about [facility] if there was recurrence of chest pain.In the ER cardiac workup has been negative thus far with troponin neg x2 and EKG with no new changes. In the ER was given- Nitro paste, morphine, nitrostat, 325mg ASA. He will be admitted to [facility] for monitoring. Will consult cardiology in the AM. Morphine & nitro PRN for pain, NPO at midnight. VS: BP: 126/78, Pulse: 65, Resp: 16, Temp: 98.3 (Oral), Pain: 6, O2 sat: 96 on (Room Air) PE: NAD, RRR, no murmurs, no chest wall tenderness, CTAB, ROM x4 EKG: NSR, RBBB, anteroseptal infarct (unchanged compared to prior) #Unstable angina -s/p 325 mg ASA, CP has resolved with nitro paste -EKG unchanged but findings above -NPO at NE, cards consult in AM -Nitro paste, SL & morphine PRN -One time dose of th. lovenox #RLS -Continue home meds #HTN -Home meds #CHFrEF -Euvolemic, continue home meds code: full dvt ppx: Th lovenox x1 Abx: none diet: NPO at NE Discussed w/ Dr. Lawson Addendum - Attending - Attending Attestation Date/Time: 01/09/21 0632 I personally evaluated the patient and discussed the management with Dr. Fernandez/Flaco. I agree with the History, Examination, Assessment and Plan documented above with any addition or exceptions noted below. Seen and evaluated on day of admission. patient has known hx of CAD with recurrent CP episodes. At last hospital stay, plan was to proceed with cath if CP episodes continued. trop neg x2. Given pain has been refractory to nitro, concern for unstable angina and will give a dose of therapeutic lovenox. Cards consult in the morning.
[2021-01-09 00:24] LABS: Troponin I Less than 0.010 ng/mL (< 0.028)
[2021-01-09] MEDS ORDERED: Acetaminophen 325 MG TAB PO PRN (00:55)
[2021-01-09] MEDS ORDERED: Nitroglycerin 0.4 MG TAB (25 Tab Bottle) SL PRN (00:55)
[2021-01-09] MEDS ORDERED: Calcium Carbonate 500 MG ChewTAB PO PRN (00:55)
[2021-01-09] MEDS ORDERED: Ondansetron PF 4 MG/2 ML Vial IVP PRN (00:55)
[2021-01-09] MEDS: oxyCODONE 5 MG TAB PO SCH ×6 (00:59→21:23)
[2021-01-09] MEDS ORDERED: rOPINIRole HCl 2 MG TAB PO SCH ×2 (01:00→21:00)
[2021-01-09] MEDS ORDERED: rOPINIRole HCl 1 MG TAB PO SCH ×2 (01:00→21:00)
[2021-01-09] MEDS ORDERED: Icosapent Ethyl 1 GM CAPSULE PO SCH (01:00)
[2021-01-09] MEDS ORDERED: Carvedilol 25 MG TAB PO SCH (01:00)
[2021-01-09] MEDS ORDERED: Enoxaparin Sodium 80 MG/0.8 ML SYRINGE SC SCH (01:30)
[2021-01-09] MEDS ORDERED: Enoxaparin Sodium 80 MG/0.8 ML SYRINGE ONE (02:06)
[2021-01-09] MEDS ORDERED: Ondansetron PF 4 MG/2 ML Vial ONE ×2 (02:06→02:07)
[2021-01-09] MEDS ORDERED: Lactated Ringer's 1,000 ML IV SCH (04:45)
[2021-01-09 04:56] LABS: SARS-CoV-2 PCR by NAA Not Detected (NotDetected)
[2021-01-09 05:34] LABS: #Eosinphils 0.3 thou/uL (0.0-0.7); #Lymphocytes 2.6 thou/uL (1.20-3.40); #Monocytes 0.7 thou/uL (0.11-0.59); #Neutrophils 6.1 thou/uL (1.40-6.50); %Basophils 0.5 % (0.0-1.0); %Eosinophils 2.9 % (0.0-10.0); %Lymphocytes 26.4 % (21.0-51.0); %Monocytes 7.3 % (0.0-10.0); %Neutrophils 62.9 % (42.0-75.0); Hemoglobin 12.7 g/dL (14.0-18.0); Mean Corpuscular HGB CONC 32.7 g/dL (32.0-36.0); Mean Corpuscular Hemoglobin 30.1 pg (27.0-31.0); Mean Corpuscular Volume 92.1 fL (78.0-98.0); Platelet Count 285 thou/uL (130-400); RBC Distribution Width 12.1 % (11.5-14.5); Red Blood Cell (RBC) Count 4.22 mill/uL (4.70-6.10); White Blood Cell (WBC) Count 9.7 thou/uL (4.8-10.8)
[2021-01-09 05:56] LABS: ALT (SGPT) 17 U/L (8-55); AST (SGOT) 16 U/L (5-34); Albumin 3.5 g/dL (3.5-5.0); Alkaline Phosphatase 47 U/L (40-110); Anion Gap 14 mmol/L (10-20); BUN (Urea Nitrogen) 33 mg/dL (8.4-25.7); Bilirubin, Total 0.4 mg/dL (0.2-1.2); Calc. Creatinine Clearance 0 mL/min (70-130); Calcium 8.4 mg/dL (7.8-10.44); Carbon Dioxide 26 mmol/L (22-29); Chloride 106 mmol/L (98-107); Glucose 106 mg/dL (70-105); Potassium 3.8 mmol/L (3.5-5.1); Protein, Total 6.5 g/dL (6.0-8.3)
[2021-01-09 06:02] LABS: Sodium 142 mmol/L (136-145)
--- NOTE | 2021-01-09 09:54 | PDOC.FM ---
- Subjective Subjective: Patient chest pain has been improving since nitro patch placed overnight. Still having some mild chest pressure and pain this morning that is non-radiating. Had one episode of nausea & vomiting around 0300 but now denies any nausea. Denies any other complaints. Patient states he saw Dr. Mckinley' [employer] on 01/05 in the office, was told he needed a LHC. States he is willing to have this done if needed. - Objective MAR Reviewed: Yes Result Diagrams: 01/09/21 05:26 01/09/21 05:26 Phys Exam - Physical Examination Constitutional: NAD HEENT: moist MMs, sclera anicteric Neck: no JVD, supple, full ROM Respiratory: no wheezing, clear to auscultation bilateral Cardiovascular: RRR, no significant murmur Gastrointestinal: soft, non-tender, positive bowel sounds Musculoskeletal: no edema, pulses present Neurological: normal sensation, moves all 4 limbs Psychiatric: normal affect, A&O x 3 Skin: no rash, normal turgor Dx/Plan (1) Atypical chest pain Code(s): R07.89 - OTHER CHEST PAIN Status: Acute (2) Neuropathy Code(s): G62.9 - POLYNEUROPATHY, UNSPECIFIED Status: Chronic - Plan Plan: Atypical chest pain - relieved with Nitro PO & patch in ED, also given ASA - Significant hx of GERD and CAD that could be contributing to pain - Troponin negative x 2, no changes on EKG compared to Dec 2020 - had stress test in Dec 2020 that was unchanged from 1 year ago - Nitro PRN for pain - Consult Cardiology in AM. Sees Dr. Mckinley outpatient, appreciate recs -was told at outpatient visit on 01/05 that he needed a heart cath -previous cath was in Jan 2020 showing patent stent to proximal LAD History of [place] -multiple stents placed -follows with Dr Mckinley, cardiology HFrEF - last echo EF 35-40% 10/2020 - continue home medications - monitor fluid status, euvolemic on exam - Hold Beta blockers GERD - continue home meds HTN - Home medications HLD - Home medications Restless leg syndome - home meds DVT ppx: none, pt low risk GI ppx: protonix Code: DNR Diet: NPO, meds with sips PCP: Howie Dispo: Admit to observation on telemetry unit. Consult Cardiology, Dr. Mckinley this morning for further recommendations. Addendum - Attending - Attending Attestation Date/Time: 01/09/21 0943 I personally evaluated the patient and discussed the management with Dr. Sauceda. I agree with the History, Examination, Assessment and Plan documented above with any addition or exceptions noted below.
[2021-01-09] MEDS ORDERED: Aspirin Chewable 81 MG TAB ONE (10:02)
[2021-01-09] MEDS ORDERED: Amlodipine 5 MG TAB ONE (10:02)
[2021-01-09] MEDS: Aspirin 81 mg Enteric Coated Tablet PO SCH (10:10)
[2021-01-09] MEDS: Carvedilol 25 MG TAB PO SCH ×2 (10:10→21:25)
[2021-01-09] MEDS: Amlodipine 5 MG TAB PO SCH (10:10)
[2021-01-09] MEDS: Docusate 100 MG CAP PO SCH (10:11)
[2021-01-09] MEDS: Gabapentin 300 MG CAP PO SCH ×2 (10:11→21:26)
[2021-01-09] MEDS: Icosapent Ethyl 1 GM CAPSULE PO SCH ×2 (10:11→21:22)
[2021-01-09] MEDS: Lisinopril 20 MG TAB PO SCH (10:11)
[2021-01-09] MEDS: Sucralfate 1 GM TAB PO SCH ×2 (10:12→21:26)
[2021-01-09] MEDS: Venlafaxine HCl XR 150 MG CAP PO SCH (10:12)
--- NOTE | 2021-01-09 13:46 | PDOC.CPN ---
- Subjective Date: 01/09/21 Time: 13:10 Interval history: Mr. Ba presented to the ER yesterday evening after he had a chest pain episode at home while watching TV. He states that he had chest tightness 8/10 at home with pain radiating down his back. He took 2 SL Nitro and this subsided, about one hour later, the chest pain came back, so he decided to go to the ER. He was transferred here for further evaluation. He states he has been having these chest pain episodes frequently. His stress test 12/30/2020 showed a large area of scarring to the septum and distal anterior wall. His LHC 01/2020 showed 30-50% stenosis to the LAD, 30% stenosis to left circumflex, and a patent stent to the LAD. He has also been out of his Ranexa for almost 2 weeks d/t cost issues. He is sitting up in bed today, he has a Nitro patch on, he states that his chest discomfort is a 2-3/10 and describes it as burning sensation. He also states that last night, he got up to use the restroom and became nauseated and had bile like emesis, he denies any n/v/d today. - Review of Systems General: denies: fever/chills, weight/appetite/sleep changes, night sweats, fatigue Respiratory: denies: cough, congestion, shortness of breath, exercise intol erance Cardiovascular: reports: chest pain Gastrointestinal: denies: nausea, vomiting, diarrhea, constipation, abd pain, GI bleeding Musculoskeletal: denies: pain, tenderness, stiffness, swelling, arthritis/arthralgias Neurological: denies: numbness, syncope, seizure, weakness - Objective Allergies/Adverse Reactions: Allergies Allergy/AdvReac Type Severity Reaction Status Date / Time fentanyl [From Duragesic] Allergy Nausea Verified 12/17/20 02:05 quinine Allergy Nausea Verified 12/17/20 02:05 Visit Medications: Current Medications Acetaminophen (Acetaminophen 325 Mg Tab) 650 mg PO Q4H PRN PRN Reason: Headache/Fever/Mild Pain (1-3) Amlodipine Besylate (Amlodipine 5 Mg Tab) 5 mg PO DAILY [facility] Last Admin: 01/09/21 10:10 Dose: 5 mg Documented by: Aspirin (Aspirin 81 Mg Enteric Coated Tablet) 81 mg PO DAILY [facility] Last Admin: 01/09/21 10:10 Dose: 81 mg Documented by: Atorvastatin Calcium (Atorvastatin Calcium 40 Mg Tab) 40 mg PO [facility] Calcium Carbonate (Calcium Carbonate 500 Mg Chewtab) 1,000 mg PO Q4H PRN PRN Reason: Heartburn or Indigestion Carvedilol (Carvedilol 25 Mg Tab) 25 mg PO BID [facility] Last Admin: 01/09/21 10:10 Dose: 25 mg Documented by: Docusate Sodium (Docusate 100 Mg Cap) 100 mg PO DAILY [facility] Last Admin: 01/09/21 10:11 Dose: 100 mg Documented by: Gabapentin (Gabapentin 300 Mg Cap) 600 mg PO BID [facility] Last Admin: 01/09/21 10:11 Dose: 600 mg Documented by: Lactated Ringer's (Lactated Ringer's) 1,000 mls @ 100 mls/hr IV .Q10H [facility] Stop: 01/09/21 14:44 Last Admin: 01/09/21 07:40 Dose: 1,000 mls Documented by: Isosorbide Mononitrate (Isosorbide Mononitrate Er 30 Mg Tab) 30 mg PO DAILY [facility] Lisinopril (Lisinopril 20 Mg Tab) 20 mg PO DAILY [facility] Last Admin: 01/09/21 10:11 Dose: 20 mg Documented by: Miscellaneous Medication (Icosapent Ethyl 1 Gm Capsule) 2 gm PO BID [facility] Last Admin: 01/09/21 10:11 Dose: 2 gm Documented by: Nitroglycerin (Nitroglycerin 0.4 Mg Tab (25 Tab Bottle)) 0.4 mg SL Q5MIN PRN PRN Reason: Chest Pain Ondansetron HCl (Ondansetron Pf 4 Mg/2 Ml Vial) 4 mg IVP Q6H PRN PRN Reason: Nausea/Vomiting Last Admin: 01/09/21 02:05 Dose: 4 mg Documented by: Oxycodone HCl (Oxycodone 5 Mg Tab) 10 mg PO Q4HR [facility] Last Admin: 01/09/21 10:09 Dose: 10 mg Documented by: Pantoprazole Sodium (Pantoprazole 40 Mg Tab) 40 mg PO DAILY [facility] Last Admin: 01/09/21 10:12 Dose: 40 mg Documented by: Ranolazine (Ranolazine 500 Mg Tab) 1,000 mg PO BID [facility] Last Admin: 01/09/21 10:12 Dose: 1,000 mg Documented by: Ropinirole HCl (Ropinirole Hcl 2 Mg Tab) 4 mg PO HS [facility] Sodium Chloride (Flush - Normal Saline 10 Ml Syringe) 10 ml IVF PRN PRN PRN Reason: Saline Flush Sucralfate (Sucralfate 1 Gm Tab) 1 gm PO BID [facility] Last Admin: 01/09/21 10:12 Dose: 1 gm Documented by: Venlafaxine HCl (Venlafaxine Hcl Xr 150 Mg Cap) 150 mg PO QAM [facility] Last Admin: 01/09/21 10:12 Dose: 150 mg Documented by: Vital Signs & Weight: Vital Signs Pulse BP 01/09/21 10:11 109/76 01/09/21 10:10 61 109/76 - Physical Exam General: alert & oriented x3, appears well, no apparent distress HEENT: mucus membranes moist, normocephaly Neck: supple neck, midline trachea, no JVD/HJR, no masses, no bruit Cardiac: regular rate and rhythm, no murmur, S1/S2 Lungs: clear to auscultation, normal breath sounds, no wheeze, rales, rhonchi Neuro: cranial nerve 2-12 intact, grossly intact, motor function intact, sensory function intact Abdomen: active bowel sounds, soft, non-tender, no masses, no pulsations/bruits, no hepatosplenomegaly Extremities: no cyanosis, no clubbing, no edema, 2+ Posterior Tibial, 2+ Dorsalis Pedus Skin: clear, other (Nitro patch to right chest) Musculoskeletal: normal range of motion, no pain, no fluid collection - Labs Result Diagrams: 01/09/21 05:26 01/09/21 05:26 Troponin/CKMB Troponin I Less than 0.010 ng/mL (< 0.028) 01/08/21 23:48 - EKG Interpretation EKG Method: Telemetry EKG: sinus rhythm (RBBB, consistent with previous EKGs) - Assessment/Plan Assessment/Plan: 1. Chest pain: at this time, the patient's chest pain is a 2/10, he is wearing a Nitro patch, he has had no EKG changes and negative cardiac enzymes. He has been out of his Ranexa for almost 2 weeks at home due to cost issues. At this time we will discuss [facility] inpatient vs outpatient. Will also start on Imdur 30 mg. 2. Coronary artery disease: his left heart catheterization in 01/2020 showed EF 55-60%, stenosis in mid- distal LAD, 30% in left circumflex after taking off of OM branch, small RCA without any stenosis, patent stent to proximal LAD 3. GERD: he has a significant history of GERD and a hiatal hernia 4. Hyperlipidemia: continue Atorvastatin 40 mg and Vascepa 5. Hypertension: well controlled at this time, BP 114/74 at time of exam, continue Amlodipine 5 mg and Lisinopril 20 mg Pt. seen and eval by me. I agree with the A/P by the [employer]. He has frequent chest p ain, this was much less frequent when he was taking his Ranexa. There are no significant EKG changes. Exam is unremarkable. he needs to resume his medications. If the Troponin I is not elevated then probably d/c in AM. I will follow him as an outpt. If chest pain tonight with EKG changes then consider cardiac cath again. young
[2021-01-09 15:52] VITALS: BMI 27.8
[2021-01-09] MEDS ORDERED: Atorvastatin Calcium 40 MG TAB PO SCH (21:00)
[2021-01-10] MEDS: oxyCODONE 5 MG TAB PO SCH ×4 (01:25→12:56)
--- NOTE | 2021-01-10 05:35 | PDOC.FM ---
- Subjective Subjective: Mr. Ba is doing well this morning. He denies any chest pain or pressure overnight and has no complaints this morning. He is concerned about being able to afford his CP medication once out of the hospital although he states Dr. Mckinley is going to try putting him on a different one to see if it's more affordable. - Objective Vital Signs & Weight: Vital Signs (12 hours) Temp Pulse Resp BP Pulse Ox 01/10/21 04:36 98.2 F 69 18 141/86 H 97 01/09/21 20:00 99.2 F 79 20 127/79 97 Weight Weight 80.7 kg I&O: 01/08/21 01/09/21 01/10/21 06:59 06:59 06:59 Intake Total 880 Balance 880 Result Diagrams: 01/09/21 05:26 01/09/21 05:26 Phys Exam - Physical Examination Constitutional: NAD Neck: supple Respiratory: clear to auscultation bilateral Cardiovascular: RRR, no significant murmur Neurological: non-focal, moves all 4 limbs Psychiatric: normal affect, A&O x 3 Skin: no rash Dx/Plan - Plan Plan: Atypical chest pain - relieved with Nitro PO & patch in ED, also given ASA - Significant hx of GERD and CAD that could be contributing to pain - Troponin negative x 2, no changes on EKG compared to Dec 2020 - had stress test in Dec 2020 that was unchanged from 1 year ago - Nitro PRN for pain - Cardiology, Dr. Mckinley, consulted. Appreciate recs: * if no CP or EKG changes overnight, can d/c. Otherwise, will cath History of [place] - multiple stents placed - follows with Dr Mckinley, cardiology HFrEF - last echo EF 35-40% 10/2020 - continue home medications - monitor fluid status, euvolemic on exam - avoid beta blockers GERD - continue home meds HTN - continue home medications - monitor vitals HLD - Home medications Restless leg syndome - home meds DVT ppx: none, pt low risk GI ppx: protonix Code: DNR Diet: NPO, meds with sips PCP: Howie Dispo: Admit to observation on telemetry unit. Possible d/c today pending cardiology recs. Addendum - Attending - Attending Attestation Date/Time: 01/10/21 [id number] I personally evaluated the patient and discussed the management with Dr. Salvatore Jimenez. I agree with the History, Examination, Assessment and Plan documented above with any addition or exceptions noted below.
[2021-01-10] MEDS: Amlodipine 5 MG TAB PO SCH (08:24)
[2021-01-10] MEDS: Aspirin 81 mg Enteric Coated Tablet PO SCH (08:25)
[2021-01-10] MEDS: Carvedilol 25 MG TAB PO SCH (08:25)
[2021-01-10] MEDS: Docusate 100 MG CAP PO SCH (08:26)
[2021-01-10] MEDS: Gabapentin 300 MG CAP PO SCH (08:26)
[2021-01-10] MEDS: Icosapent Ethyl 1 GM CAPSULE PO SCH (08:28)
[2021-01-10] MEDS: Lisinopril 20 MG TAB PO SCH (08:29)
[2021-01-10] MEDS: Sucralfate 1 GM TAB PO SCH (08:32)
[2021-01-10] MEDS: Venlafaxine HCl XR 150 MG CAP PO SCH (08:32)
[2021-01-10 11:17] VITALS: BP 112/75; TEMP 98.4
--- NOTE | 2021-01-10 11:48 | PDOC.CPN ---
- Subjective Date: 01/10/21 Time: 11:20 Interval history: No overnight events, patient denies any chest pain episodes overnight. He was just taking a shower and state he did experience mild chest tightness for less than one minute while in the shower. He denies any shortness of breath, dizziness, diaphoresis, palpitations, or radiating pain with this episode. He did not have any EKG changes after his shower. He was started on Imdur yesterday. He is now sitting up in bed eating lunch. He denies any chest pain at time of exam. - Review of Systems General: denies: fever/chills, weight/appetite/sleep changes, night sweats, fatigue Respiratory: denies: cough, congestion, shortness of breath, exercise intolerance Cardiovascular: denies: chest pain, palpitation, edema, paroxysmal nocturnal dyspnea, orthopnea Gastrointestinal: denies: nausea, vomiting, diarrhea, constipation, abd pain, GI bleeding Musculoskeletal: denies: pain, tenderness, stiffness, swelling, arthritis/arthralgias Neurological: denies: numbness, syncope, seizure, weakness - Objective Allergies/Adverse Reactions: Allergies Allergy/AdvReac Type Severity Reaction Status Date / Time fentanyl [From Duragesic] Allergy Nausea Verified 12/17/20 02:05 quinine Allergy Nausea Verified 12/17/20 02:05 Visit Medications: Current Medications Acetaminophen (Acetaminophen 325 Mg Tab) 650 mg PO Q4H PRN PRN Reason: Headache/Fever/Mild Pain (1-3) Amlodipine Besylate (Amlodipine 5 Mg Tab) 5 mg PO DAILY [facility] Last Admin: 01/10/21 08:24 Dose: 5 mg Documented by: Aspirin (Aspirin 81 Mg Enteric Coated Tablet) 81 mg PO DAILY [facility] Last Admin: 01/10/21 08:25 Dose: 81 mg Documented by: Atorvastatin Calcium (Atorvastatin Calcium 40 Mg Tab) 40 mg PO HS [facility] Last Admin: 01/09/21 21:26 Dose: 40 mg Documented by: Calcium Carbonate (Calcium Carbonate 500 Mg Chewtab) 1,000 mg PO Q4H PRN PRN Reason: Heartburn or Indigestion Carvedilol (Carvedilol 25 Mg Tab) 25 mg PO BID [facility] Last Admin: 01/10/21 08:25 Dose: 25 mg Documented by: Docusate Sodium (Docusate 100 Mg Cap) 100 mg PO DAILY [facility] Last Admin: 01/10/21 08:26 Dose: Not Given Documented by: Gabapentin (Gabapentin 300 Mg Cap) 600 mg PO BID [facility] Last Admin: 01/10/21 08:26 Dose: 600 mg Documented by: Isosorbide Mononitrate (Isosorbide Mononitrate Er 30 Mg Tab) 30 mg PO DAILY [facility] Last Admin: 01/10/21 08:29 Dose: 30 mg Documented by: Lisinopril (Lisinopril 20 Mg Tab) 20 mg PO DAILY [facility] Last Admin: 01/10/21 08:29 Dose: 20 mg Documented by: Miscellaneous Medication (Icosapent Ethyl 1 Gm Capsule) 2 gm PO BID [facility] Last Admin: 01/10/21 08:28 Dose: 2 gm Documented by: Nitroglycerin (Nitroglycerin 0.4 Mg Tab (25 Tab Bottle)) 0.4 mg SL Q5MIN PRN PRN Reason: Chest Pain Ondansetron HCl (Ondansetron Pf 4 Mg/2 Ml Vial) 4 mg IVP Q6H PRN PRN Reason: Nausea/Vomiting Last Admin: 01/09/21 02:05 Dose: 4 mg Documented by: Oxycodone HCl (Oxycodone 5 Mg Tab) 10 mg PO Q4HR [facility] Last Admin: 01/10/21 08:29 Dose: 10 mg Documented by: Pantoprazole Sodium (Pantoprazole 40 Mg Tab) 40 mg PO DAILY [facility] Last Admin: 01/10/21 08:31 Dose: 40 mg Documented by: Ranolazine (Ranolazine 500 Mg Tab) 1,000 mg PO BID [facility] Last Admin: 01/10/21 08:32 Dose: 1,000 mg Documented by: Ropinirole HCl (Ropinirole Hcl 2 Mg Tab) 4 mg PO HS [facility] Last Admin: 01/09/21 21:25 Dose: 4 mg Documented by: Sodium Chloride (Flush - Normal Saline 10 Ml Syringe) 10 ml IVF PRN PRN PRN Reason: Saline Flush Sucralfate (Sucralfate 1 Gm Tab) 1 gm PO BID [facility] Last Admin: 01/10/21 08:32 Dose: 1 gm Documented by: Venlafaxine HCl (Venlafaxine Hcl Xr 150 Mg Cap) 150 mg PO QAM [facility] Last Admin: 01/10/21 08:32 Dose: 150 mg Documented by: Vital Signs & Weight: Vital Signs Temp Pulse Resp BP Pulse Ox 01/10/21 11:16 98.4 F 60 16 112/75 96 01/10/21 08:24 75 01/10/21 07:00 98.3 F 67 16 159/99 H 96 01/10/21 04:36 98.2 F 69 18 141/86 H 97 Weight 177 lb 14.608 oz - Quality Measures Condition: Coronary Artery Disease CV meds: Beta Joseph: Yes, WENDY/ARB: Yes, Statin: Yes, ASA: Yes - Medication Contraindications No Anticoagulant reason: Treatment not indicated - Physical Exam General: alert & oriented x3, appears well, no apparent distress HEENT: mucus membranes moist Neck: supple neck, midline trachea, no JVD/HJR, no masses, no bruit Cardiac: regular rate and rhythm, no murmur, S1/S2 Lungs: clear to auscultation, normal breath sounds, no wheeze, rales, rhonchi Neuro: cranial nerve 2-12 intact, grossly intact, motor function intact, sensory function intact Abdomen: active bowel sounds, soft, non-tender Extremities: no cyanosis, no clubbing, no edema, 2+ Posterior Tibial, 2+ Dorsalis Pedus Skin: clear Musculoskeletal: normal range of motion, no pain, no fluid collection - Labs Result Diagrams: 01/09/21 05:26 01/09/21 05:26 Troponin/CKMB Troponin I Less than 0.010 ng/mL (< 0.028) 01/08/21 23:48 - EKG Interpretation EKG Method: Telemetry EKG: sinus rhythm (Right bundle branch block, consistent with previous EKG, remains unchanged) - Assessment/Plan Assessment/Plan: 1. Chest pain: denies chest pain at time of exam. He was started on imdur yesterday and was re-started on his Ranexa. A coupon card was given to patient to help with cost of Ranexa as outpatient 2. Coronary artery disease: his left heart catheterization in 01/2020 showed EF 55-60%, stenosis in mid- distal LAD, 30% in left circumflex after taking off of OM branch, small RCA without any stenosis, patent stent to proximal LAD 3. GERD: he has a significant history of GERD and a hiatal hernia 4. Hyperlipidemia: continue Atorvastatin 40 mg and Vascepa 5. Hypertension: well controlled at this time, continue Amlodipine 5 mg, Coreg 25 PO BID and Lisinopril 20 mg From a cardiac standpoint, Mr. Ba is stable for discharge. He did have less episodes of chest pain when he was on his Ranexa, a coupon card was given so hopefully the patient can afford this as outpatient. Long discussion with patient about starting back on his home medications and compliance. He is agreeable. Patient will follow-up in 2-3 weeks as outpatient, sooner if he experiences more episodes of chest pain to discuss heart catheterization as outpatient Pt. seen and eval. by me. I agree with the A/P by the DELIVERY REPRESENTATIVE. He will f/u as an outpt. Chest clear. RRR. gjm
--- NOTE | 2021-01-11 05:30 | DIS ---
DATE OF ADMISSION: 01/08/2021 DATE OF DISCHARGE: 01/10/2021 RESIDENT: Dea Garcia MD CONSULTS: Cardiology, Dr. Mckinley, (01/09). PROCEDURES: None. PRIMARY DIAGNOSIS: Unstable angina. SECONDARY DIAGNOSES: Myocardial infarction x3, S/P stent placement, hypertension, heart failure with reduced ejection fraction, gastroesophageal reflux disease, HLD, Simpson's esophagus, hiatal hernia. DISCHARGE MEDICATIONS: 1. Imdur 30 mg p.o. daily (new medication). 2. Oxycodone 10 mg p.o. q.4h p.r.n. 3. Coreg 25 mg p.o. b.i.d. 4. Aspirin 81 mg p.o. b.i.d. 5. Lisinopril 20 mg p.o. daily. 6. Atorvastatin 40 mg p.o. at bedtime. 7. Nitroglycerin 0.4 mg sublingual q.5 minutes p.r.n. 8. Venlafaxine 150 mg p.o. q.a.m. 9. Omeprazole 40 mg p.o. daily. 10. Vascepa 2 g p.o. b.i.d. 11. Ropinirole 4 mg p.o. at bedtime. 12. Gabapentin 600 mg 2 tabs p.o. b.i.d. 13. Ranolazine 1000 mg p.o. b.i.d. 14. Amlodipine 5 mg p.o. daily. 15. Sucralfate 1 g p.o. t.i.d.-WM. DISCONTINUED MEDICATIONS: None. HISTORY OF PRESENT ILLNESS/HOSPITAL COURSE: This is a 60-year-old male with a past medical history of [place] in 2009, 2011, 2013 each, S/P stent placement. He presented to the ED with a complaint of chest pain that occurred as he was watching a movie and resolved with nitroglycerin. At that time, he also experienced diaphoresis, shortness of breath, left shoulder/neck pain. He had been recently hospitalized at the end of December with chest pain and Cardiology decided to do an outpatient catheterization, but that it would be reconsidered if the patient was hospitalized again for chest pain. A stress test done previously showed a permanent scar near the apex. 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 During his stay, his troponins remained negative, there were no changes on EKG compared to previous one, and he had normal sinus rhythm without changes on telemetry. Upon evaluation by Cardiology, it was discovered that the patient has been out of his Ranexa for almost two weeks due to cost issues. He was started on Imdur 30 mg. Given his lack of chest pain or telemetry finding, and continued negative troponins, Dr. Mckinley felt comfortable discharging him to perform the heart catheterization in the outpatient setting. She obtained a coupon for the patient to attempt to buy his Ranexa. DISPOSITION: Stable. DISCHARGE INSTRUCTIONS: 1. Location: Home. 2. Diet: Heart healthy -- low sodium. 3. Activity: As tolerated. 4. Follow up: Patient is encouraged to follow up with his PCP, Dr. Denise, in 7 to 10 days. 5. The patient is encouraged to follow up with Dr. Mckinley in outpatient setting in 2 to 3 weeks for possible heart catheterization. Job ID: [id number]
== END 2021-01-10 14:10 | disposition home or self-care (01) ==
LOC: ERS 19:29 → ERHOLD 22:24 → 2NO 01-09 16:01
PROVIDERS: ADMIT Family Medicine; ATTEND Family Medicine
DX: I25.110 Atherosclerotic heart disease of native coronary artery with unstable angina pectoris (principal); I25.2 Old myocardial infarction; I11.0 Hypertensive heart disease with heart failure; I50.22 Chronic systolic (congestive) heart failure; K21.9 Gastro-esophageal reflux disease without esophagitis; E78.2 Mixed hyperlipidemia; K22.70 Barrett's esophagus without dysplasia; K44.9 Diaphragmatic hernia without obstruction or gangrene; G25.81 Restless legs syndrome; G62.9 Polyneuropathy, unspecified; F12.10 Cannabis abuse, uncomplicated; Z66 Do not resuscitate; Z79.82 Long term (current) use of aspirin; Z79.899 Other long term (current) drug therapy; Z88.5 Allergy status to narcotic agent; Z88.8 Allergy status to other drugs, medicaments and biological substances; Z95.5 Presence of coronary angioplasty implant and graft; Z20.822 Contact with and (suspected) exposure to COVID-19
CPT/HCPCS: 80053; 84484; 85025; 93005; 94760; 96374; 99285; U0003; U0005; 36415; 87635; 96372; 96375; G0378; J1650; J2270; J2405

== ENCOUNTER 2021-04-12 20:34 | Observation (INO) | payer MEDICARE ==
[2021-04-12 21:39] VITALS: BMI 27.8
[2021-04-12] MEDS ORDERED: Nitroglycerin 0.4 MG TAB (25 Tab Bottle) SL PRN (22:15)
[2021-04-12] MEDS ORDERED: Ondansetron PF 4 MG/2 ML Vial IVP PRN (22:15)
[2021-04-12] MEDS ORDERED: Ondansetron ODT 4 MG TAB PO PRN (22:15)
[2021-04-12] MEDS ORDERED: Acetaminophen 325 MG TAB PO PRN (22:15)
[2021-04-12] MEDS ORDERED: rOPINIRole HCl 1 MG TAB PO SCH (22:45)
[2021-04-12] MEDS ORDERED: Gabapentin 400 MG CAP PO SCH (22:45)
[2021-04-12] MEDS ORDERED: Atorvastatin Calcium 40 MG TAB PO SCH (22:45)
[2021-04-12] MEDS ORDERED: Carvedilol 25 MG TAB PO SCH (22:45)
[2021-04-12 22:59] LABS: Troponin I Less than 0.010 ng/mL (< 0.028)
[2021-04-12] MEDS: Morphine 4 MG/ML VIAL SLOW IVP PRN (23:19)
[2021-04-13] MEDS: HYDROcodone/Acetaminophen 5/325 mg Tablet PO PRN ×2 (00:24→04:52)
[2021-04-13 02:21] LABS: #Basophils 0.1 thou/uL (0.0-0.2); #Eosinphils 0.4 thou/uL (0.0-0.7); #Neutrophils 5.6 thou/uL (1.40-6.50); %Basophils 0.5 % (0.0-1.0); %Eosinophils 4.4 % (0.0-10.0); %Lymphocytes 29.5 % (21.0-51.0); %Monocytes 9.9 % (0.0-10.0); %Neutrophils 55.7 % (42.0-75.0); Hemoglobin 12.7 g/dL (14.0-18.0); Mean Corpuscular HGB CONC 32.9 g/dL (32.0-36.0); Mean Corpuscular Hemoglobin 31.4 pg (27.0-31.0); Mean Corpuscular Volume 95.4 fL (78.0-98.0); Mean Platelet Volume 7.1 fL (7.4-10.4); Platelet Count 265 thou/uL (130-400); RBC Distribution Width 12.7 % (11.5-14.5); Red Blood Cell (RBC) Count 4.05 mill/uL (4.70-6.10); White Blood Cell (WBC) Count 10.1 thou/uL (4.8-10.8)
[2021-04-13 02:47] LABS: Troponin I Less than 0.010 ng/mL (< 0.028)
[2021-04-13 02:51] LABS: Anion Gap 13 mmol/L (10-20); BUN (Urea Nitrogen) 17 mg/dL (8.4-25.7); Calc. Creatinine Clearance 96 mL/min (70-130); Calcium 8.6 mg/dL (7.8-10.44); Carbon Dioxide 27 mmol/L (22-29); Chloride 105 mmol/L (98-107); Glucose 109 mg/dL (70-105); Potassium 3.7 mmol/L (3.5-5.1); Sodium 141 mmol/L (136-145)
[2021-04-13 06:12] LABS: SARS-CoV-2 PCR by NAA Not Detected (NotDetected)
[2021-04-13] MEDS ORDERED: Venlafaxine HCl XR 150 MG CAP PO SCH (09:00)
[2021-04-13] MEDS ORDERED: Gabapentin 400 MG CAP PO SCH (09:00)
[2021-04-13] MEDS ORDERED: Amlodipine 5 MG TAB PO SCH (09:00)
[2021-04-13] MEDS ORDERED: Lisinopril 20 MG TAB PO SCH (09:00)
[2021-04-13] MEDS ORDERED: Enoxaparin Sodium 40 MG/0.4 ML SYRINGE SC SCH (09:00)
[2021-04-13] MEDS ORDERED: Carvedilol 25 MG TAB PO SCH (09:00)
[2021-04-13] MEDS: Morphine 4 MG/ML VIAL SLOW IVP PRN (10:01)
[2021-04-13 11:16] VITALS: BP 105/64; TEMP 97.9
[2021-04-13] MEDS ORDERED: Atorvastatin Calcium 40 MG TAB PO SCH (21:00)
[2021-04-13] MEDS ORDERED: rOPINIRole HCl 1 MG TAB PO SCH (21:00)
== END 2021-04-13 11:53 | disposition home or self-care (01) ==
LOC: 2SW 21:18
PROVIDERS: ADMIT Student in an Organized Health Care Education/Training Program; ATTEND Student in an Organized Health Care Education/Training Program
DX: R07.9 Chest pain, unspecified (principal); I25.10 Atherosclerotic heart disease of native coronary artery without angina pectoris; K21.9 Gastro-esophageal reflux disease without esophagitis; I11.0 Hypertensive heart disease with heart failure; I50.20 Unspecified systolic (congestive) heart failure; E78.5 Hyperlipidemia, unspecified; G89.29 Other chronic pain; M54.9 Dorsalgia, unspecified; I25.2 Old myocardial infarction; E78.00 Pure hypercholesterolemia, unspecified; G25.81 Restless legs syndrome; Z79.82 Long term (current) use of aspirin; Z79.899 Other long term (current) drug therapy; Z88.5 Allergy status to narcotic agent; Z88.8 Allergy status to other drugs, medicaments and biological substances; Z95.5 Presence of coronary angioplasty implant and graft; Z20.822 Contact with and (suspected) exposure to COVID-19
CPT/HCPCS: 80048; 84484 ×2; 85025; 94760; 96372; 96374; 96375; 96376; G0378 ×2; U0003; U0005; 36415; 87635; J1650; J2270; J2405

== ENCOUNTER 2021-05-18 07:09 | Outpatient (CLI) | payer MEDICARE ==
[2021-05-18] MEDS ORDERED: Magnevist 469MG/ML 20 ML VIAL ONE ×2 (10:28)
== END 2021-05-18 07:10 | disposition home or self-care (01) ==
LOC: MRI 07:09
PROVIDERS: ATTEND Radiology Diagnostic Neuroimaging
DX: M47.22 Other spondylosis with radiculopathy, cervical region (principal); G89.4 Chronic pain syndrome; M47.26 Other spondylosis with radiculopathy, lumbar region; M47.27 Other spondylosis with radiculopathy, lumbosacral region; M48.061 Spinal stenosis, lumbar region without neurogenic claudication; L90.5 Scar conditions and fibrosis of skin; Z98.890 Other specified postprocedural states
CPT/HCPCS: 72125; 72156; 72158; A9579

== ENCOUNTER 2021-11-06 00:01 | Inpatient (IN) | payer MEDICARE ==
[2021-11-06 04:06] VITALS: BMI 27.0
[2021-11-06] MEDS ORDERED: Ondansetron PF 4 MG/2 ML Vial IVP PRN (04:37)
[2021-11-06] MEDS ORDERED: Electrolyte Replacement Protocol 1 EACH IVPB PRN (04:37)
[2021-11-06] MEDS ORDERED: Nitroglycerin 50 MG/250 ML BOT 250 ML IVPB PRN (04:37)
[2021-11-06] MEDS ORDERED: Acetaminophen 325 MG TAB PO PRN (04:38)
[2021-11-06] MEDS ORDERED: Acetaminophen 650 MG Suppository PR PRN (04:38)
[2021-11-06] MEDS ORDERED: Morphine 4 MG/ML VIAL SLOW IVP PRN (05:23)
[2021-11-06] MEDS ORDERED: Lidocaine 2% Viscous Solution 10 ML, Aluminum & Magnesium Hydroxide 30 ML SSW SCH (07:15)
[2021-11-06] MEDS ORDERED: FLU VACC QS2021-22(6MOS UP)/PF 60 MCG/0.5 ML SYRINGE IM ONE (09:00)
[2021-11-06] MEDS ORDERED: oxyCODONE 5 MG TAB PO PRN (09:18)
[2021-11-06] MEDS ORDERED: Venlafaxine HCl XR 150 MG CAP PO SCH (09:30)
[2021-11-06] MEDS ORDERED: Lisinopril 20 MG TAB PO SCH (11:45)
[2021-11-06] MEDS ORDERED: Amlodipine 5 MG TAB PO SCH (11:45)
[2021-11-06] MEDS ORDERED: Carvedilol 25 MG TAB PO SCH ×2 (11:45→21:00)
[2021-11-06 13:05] VITALS: BP 166/112
[2021-11-06 14:25] VITALS: TEMP 98.3
[2021-11-06] MEDS ORDERED: metFORMIN 500 MG TAB PO SCH (17:00)
[2021-11-06] MEDS ORDERED: Atorvastatin Calcium 40 MG TAB PO SCH (21:00)
[2021-11-06] MEDS ORDERED: Aspirin 81 mg Enteric Coated Tablet PO SCH (21:00)
[2021-11-06] MEDS ORDERED: rOPINIRole HCl 1 MG TAB PO SCH (21:00)
[2021-11-06] MEDS ORDERED: Gabapentin 300 MG CAP PO SCH (21:00)
[2021-11-07] MEDS ORDERED: Venlafaxine HCl XR 150 MG CAP PO SCH (09:00)
[2021-11-07] MEDS ORDERED: Amlodipine 5 MG TAB PO SCH (09:00)
[2021-11-07] MEDS ORDERED: Lisinopril 20 MG TAB PO SCH (09:00)
== END 2021-11-06 14:50 | disposition home or self-care (01) | DRG 313 ==
LOC: CCU 00:01 → OBSVTOIN 04:41
PROVIDERS: ADMIT Family Medicine; ATTEND Family Medicine
DX: R07.89 Other chest pain (principal); I50.22 Chronic systolic (congestive) heart failure; Z20.822 Contact with and (suspected) exposure to COVID-19; I11.0 Hypertensive heart disease with heart failure; K22.70 Barrett's esophagus without dysplasia; E78.5 Hyperlipidemia, unspecified; I25.10 Atherosclerotic heart disease of native coronary artery without angina pectoris; K21.9 Gastro-esophageal reflux disease without esophagitis; G25.81 Restless legs syndrome; R73.03 Prediabetes; E78.00 Pure hypercholesterolemia, unspecified; G89.29 Other chronic pain; Z88.8 Allergy status to other drugs, medicaments and biological substances; Z79.82 Long term (current) use of aspirin; Z79.84 Long term (current) use of oral hypoglycemic drugs; Z79.899 Other long term (current) drug therapy; I25.2 Old myocardial infarction; Z95.5 Presence of coronary angioplasty implant and graft
CPT/HCPCS: 70450; J2270

== ENCOUNTER 2022-01-02 21:42 | Inpatient (IN) | payer MEDICARE, OTHER ==
[2022-01-02] MEDS ORDERED: Ondansetron PF 4 MG/2 ML Vial IVP PRN (23:32)
[2022-01-02] MEDS ORDERED: Acetaminophen 325 MG TAB PO PRN (23:32)
[2022-01-02] MEDS ORDERED: Ondansetron ODT 4 MG TAB PO PRN (23:32)
[2022-01-02] MEDS ORDERED: Calcium Carbonate 500 MG ChewTAB PO PRN (23:32)
[2022-01-02] MEDS ORDERED: Acetaminophen 650 MG Suppository PR PRN (23:32)
[2022-01-02 23:41] LABS: Troponin I Less than 0.010 ng/mL (< 0.028)
[2022-01-02] MEDS ORDERED: Nitroglycerin 0.4 MG TAB (25 Tab Bottle) SL PRN (23:56)
[2022-01-03] MEDS ORDERED: Naproxen 500 MG TAB PO SCH ×2 (00:15→09:00)
[2022-01-03] MEDS: oxyCODONE 5 MG TAB PO PRN ×4 (00:30→19:17)
[2022-01-03] MEDS ORDERED: Gabapentin 300 MG CAP PO SCH ×2 (00:45→09:00)
[2022-01-03] MEDS ORDERED: rOPINIRole HCl 1 MG TAB PO SCH (00:45)
[2022-01-03] MEDS ORDERED: metFORMIN 500 MG TAB PO SCH (00:45)
[2022-01-03] MEDS ORDERED: Atorvastatin Calcium 40 MG TAB PO SCH (00:45)
[2022-01-03 02:56] LABS: Troponin I Less than 0.010 ng/mL (< 0.028)
[2022-01-03 05:09] LABS: #Eosinphils 0.3 thou/uL (0.0-0.7); #Lymphocytes 2.5 thou/uL (1.20-3.40); #Monocytes 0.8 thou/uL (0.11-0.59); %Basophils 0.4 % (0.0-1.0); %Eosinophils 2.9 % (0.0-10.0); %Lymphocytes 28.9 % (21.0-51.0); %Monocytes 9.6 % (0.0-10.0); %Neutrophils 58.2 % (42.0-75.0); Hemoglobin 13.1 g/dL (14.0-18.0); Mean Corpuscular HGB CONC 32.6 g/dL (32.0-36.0); Mean Corpuscular Hemoglobin 30.1 pg (27.0-31.0); Mean Corpuscular Volume 92.5 fL (78.0-98.0); Mean Platelet Volume 6.9 fL (7.4-10.4); Platelet Count 296 thou/uL (130-400); RBC Distribution Width 12.9 % (11.5-14.5); Red Blood Cell (RBC) Count 4.34 mill/uL (4.70-6.10); White Blood Cell (WBC) Count 8.6 thou/uL (4.8-10.8)
[2022-01-03 05:28] LABS: Anion Gap 11 mmol/L (10-20); BUN (Urea Nitrogen) 27 mg/dL (8.4-25.7); Calc. Creatinine Clearance 108 mL/min (70-130); Calcium 8.7 mg/dL (7.8-10.44); Carbon Dioxide 24 mmol/L (22-29); Chloride 104 mmol/L (98-107); Glucose 133 mg/dL (70-105); Potassium 3.4 mmol/L (3.5-5.1); Sodium 136 mmol/L (136-145)
[2022-01-03] MEDS: metFORMIN 500 MG TAB PO SCH ×2 (09:12→16:53)
[2022-01-03] MEDS: Amlodipine 5 MG TAB PO SCH (09:12)
[2022-01-03] MEDS: Enoxaparin Sodium 40 MG/0.4 ML SYRINGE SC SCH (09:13)
[2022-01-03] MEDS: Aspirin 81 mg Enteric Coated Tablet PO SCH ×2 (09:13→21:07)
[2022-01-03] MEDS: Gabapentin 300 MG CAP PO SCH ×2 (09:13→21:07)
[2022-01-03] MEDS: Lisinopril 20 MG TAB PO SCH (09:13)
[2022-01-03] MEDS: Venlafaxine HCl XR 150 MG CAP PO SCH (09:14)
[2022-01-03 11:28] LABS: Troponin I 0.011 ng/mL (< 0.028)
[2022-01-03 11:57] LABS: SARS-CoV-2 PCR by NAA Not Detected (NotDetected)
[2022-01-03] MEDS: Atorvastatin Calcium 40 MG TAB PO SCH (21:07)
[2022-01-03] MEDS: rOPINIRole HCl 1 MG TAB PO SCH (21:07)
[2022-01-04] MEDS: oxyCODONE 5 MG TAB PO PRN ×4 (01:23→20:23)
[2022-01-04 05:16] LABS: #Basophils 0.1 thou/uL (0.0-0.2); #Eosinphils 0.5 thou/uL (0.0-0.7); #Lymphocytes 2.1 thou/uL (1.20-3.40); #Monocytes 0.6 thou/uL (0.11-0.59); #Neutrophils 4.2 thou/uL (1.40-6.50); %Basophils 0.7 % (0.0-1.0); %Eosinophils 6.6 % (0.0-10.0); %Monocytes 8.5 % (0.0-10.0); %Neutrophils 56.1 % (42.0-75.0); Hemoglobin 13.3 g/dL (14.0-18.0); Mean Corpuscular Hemoglobin 31.3 pg (27.0-31.0); Mean Corpuscular Volume 92.1 fL (78.0-98.0); Mean Platelet Volume 6.7 fL (7.4-10.4); Platelet Count 294 thou/uL (130-400); RBC Distribution Width 12.7 % (11.5-14.5); Red Blood Cell (RBC) Count 4.25 mill/uL (4.70-6.10); White Blood Cell (WBC) Count 7.4 thou/uL (4.8-10.8)
[2022-01-04 05:51] LABS: Anion Gap 11 mmol/L (10-20); BUN (Urea Nitrogen) 24 mg/dL (8.4-25.7); Calc. Creatinine Clearance 107 mL/min (70-130); Calcium 9.1 mg/dL (7.8-10.44); Carbon Dioxide 28 mmol/L (22-29); Cardiac Risk 3.2 (Less than 4.5); Chloride 104 mmol/L (98-107); Cholesterol 125 mg/dl (< 200 Desired); Glucose 111 mg/dL (70-105); HDL Cholesterol 39 mg/dL (>60 Neg Risk); LDL Cholesterol, Calculated 65 mg/dL; Potassium 3.5 mmol/L (3.5-5.1); Sodium 139 mmol/L (136-145); Triglycerides 103 mg/dL (Less than 150)
[2022-01-04] MEDS: Aspirin 81 mg Enteric Coated Tablet PO SCH ×2 (08:02→20:24)
[2022-01-04] MEDS: Enoxaparin Sodium 40 MG/0.4 ML SYRINGE SC SCH (08:02)
[2022-01-04] MEDS: metFORMIN 500 MG TAB PO SCH ×2 (08:02→16:43)
[2022-01-04] MEDS: Gabapentin 300 MG CAP PO SCH ×2 (08:03→20:22)
[2022-01-04] MEDS: Amlodipine 5 MG TAB PO SCH (08:03)
[2022-01-04] MEDS: Lisinopril 20 MG TAB PO SCH (08:03)
[2022-01-04] MEDS: Venlafaxine HCl XR 150 MG CAP PO SCH (08:03)
[2022-01-04] MEDS ORDERED: Metoclopramide HCl 10 MG/2 ML VIAL IVP SCH ×2 (12:15→17:15)
[2022-01-04] MEDS ORDERED: Sodium Chloride 0.9% 1,000 ML IV SCH (12:15)
[2022-01-04] MEDS ORDERED: diphenhydrAMINE 50 MG/ML VIAL IVP SCH (14:45)
[2022-01-04] MEDS ORDERED: CATH Communication Order-Pharmacy FS SCH (18:00)
[2022-01-04] MEDS ORDERED: Magnesium 2 GM/50 ML 2 GM in Premix Bag 1 BAG IVPB SCH (20:00)
[2022-01-04] MEDS: rOPINIRole HCl 1 MG TAB PO SCH (20:23)
[2022-01-04] MEDS: Atorvastatin Calcium 40 MG TAB PO SCH (20:24)
[2022-01-04] MEDS ORDERED: Acetaminophen 500 MG TAB PO SCH (22:00)
[2022-01-04] MEDS ORDERED: Prochlorperazine Edisylate 10 MG in Sodium Chloride 0.9% 50 ML IVPB SCH (22:30)
[2022-01-04] MEDS ORDERED: diphenhydrAMINE 25 MG in Sodium Chloride 0.9% 50 ML IVPB SCH (22:30)
[2022-01-05] MEDS: oxyCODONE 5 MG TAB PO PRN ×4 (04:25→22:37)
[2022-01-05 04:53] LABS: #Basophils 0.1 thou/uL (0.0-0.2); #Eosinphils 0.7 thou/uL (0.0-0.7); #Lymphocytes 2.6 thou/uL (1.20-3.40); #Monocytes 0.7 thou/uL (0.11-0.59); #Neutrophils 4.3 thou/uL (1.40-6.50); %Basophils 0.7 % (0.0-1.0); %Eosinophils 8.3 % (0.0-10.0); %Lymphocytes 30.9 % (21.0-51.0); %Monocytes 8.9 % (0.0-10.0); %Neutrophils 51.2 % (42.0-75.0); Hemoglobin 12.8 g/dL (14.0-18.0); Mean Corpuscular HGB CONC 34.3 g/dL (32.0-36.0); Mean Corpuscular Hemoglobin 31.7 pg (27.0-31.0); Mean Corpuscular Volume 92.3 fL (78.0-98.0); Mean Platelet Volume 7.1 fL (7.4-10.4); Platelet Count 276 thou/uL (130-400); RBC Distribution Width 12.6 % (11.5-14.5); Red Blood Cell (RBC) Count 4.05 mill/uL (4.70-6.10); White Blood Cell (WBC) Count 8.3 thou/uL (4.8-10.8)
[2022-01-05 05:11] LABS: Anion Gap 9 mmol/L (10-20); BUN (Urea Nitrogen) 25 mg/dL (8.4-25.7); Calc. Creatinine Clearance 96 mL/min (70-130); Calcium 8.8 mg/dL (7.8-10.44); Carbon Dioxide 28 mmol/L (22-29); Chloride 105 mmol/L (98-107); Glucose 100 mg/dL (70-105); Potassium 3.4 mmol/L (3.5-5.1); Sodium 139 mmol/L (136-145)
[2022-01-05] MEDS: Gabapentin 300 MG CAP PO SCH ×2 (05:44→20:41)
[2022-01-05] MEDS: Venlafaxine HCl XR 150 MG CAP PO SCH (05:44)
[2022-01-05] MEDS: Aspirin 81 mg Enteric Coated Tablet PO SCH ×2 (05:45→20:40)
[2022-01-05] MEDS: Lisinopril 20 MG TAB PO SCH (05:45)
[2022-01-05] MEDS: Amlodipine 5 MG TAB PO SCH (05:46)
[2022-01-05] MEDS ORDERED: Fentanyl 100 MCG/2 ML VIAL ONE (07:30)
[2022-01-05] MEDS ORDERED: Heparin 10,000 UNITS/ 10 ML VIAL ONE (07:31)
[2022-01-05] MEDS ORDERED: Midazolam HCl 2 mg/2 ml Vial ONE (07:31)
[2022-01-05] MEDS ORDERED: Nitroglycerin 100MG/250ML BOT 250 ML ONE (07:31)
[2022-01-05] MEDS ORDERED: Verapamil 5 MG/2 ML VIAL ONE (07:31)
[2022-01-05] MEDS ORDERED: Potassium Chloride 20 MEQ TAB PO SCH (09:00)
[2022-01-05] MEDS ORDERED: Nitroglycerin 0.4 MG TAB (25 Tab Bottle) SL PRN (09:22)
[2022-01-05] MEDS ORDERED: Sodium Chloride 0.9% 200 ML IV PRN (09:22)
[2022-01-05] MEDS ORDERED: Acetaminophen/Codeine 30-300mg Tablet PO PRN (09:22)
[2022-01-05] MEDS ORDERED: Diazepam 5 MG TAB PO PRN (11:58)
[2022-01-05] MEDS ORDERED: Communication Order-Pharmacy FS SCH (11:58)
[2022-01-05] MEDS: Acetaminophen/Codeine 30-300mg Tablet PO PRN ×2 (12:09→18:05)
[2022-01-05] MEDS: Carvedilol 3.125 MG TAB PO SCH (16:34)
[2022-01-05] MEDS: rOPINIRole HCl 1 MG TAB PO SCH (20:40)
[2022-01-05] MEDS: Atorvastatin Calcium 40 MG TAB PO SCH (20:40)
[2022-01-06] MEDS: oxyCODONE 5 MG TAB PO PRN ×3 (04:59→17:08)
[2022-01-06 05:01] LABS: #Eosinphils 0.8 thou/uL (0.0-0.7); #Lymphocytes 2.9 thou/uL (1.20-3.40); #Monocytes 0.8 thou/uL (0.11-0.59); #Neutrophils 4.5 thou/uL (1.40-6.50); %Basophils 0.4 % (0.0-1.0); %Eosinophils 9.1 % (0.0-10.0); %Lymphocytes 32.1 % (21.0-51.0); %Monocytes 8.4 % (0.0-10.0); %Neutrophils 49.9 % (42.0-75.0); Hemoglobin 13.7 g/dL (14.0-18.0); Mean Corpuscular HGB CONC 33.2 g/dL (32.0-36.0); Mean Corpuscular Hemoglobin 30.8 pg (27.0-31.0); Mean Corpuscular Volume 92.6 fL (78.0-98.0); Mean Platelet Volume 6.6 fL (7.4-10.4); Platelet Count 329 thou/uL (130-400); RBC Distribution Width 12.8 % (11.5-14.5); Red Blood Cell (RBC) Count 4.45 mill/uL (4.70-6.10); White Blood Cell (WBC) Count 9.1 thou/uL (4.8-10.8)
[2022-01-06 05:12] LABS: Anion Gap 11 mmol/L (10-20); BUN (Urea Nitrogen) 19 mg/dL (8.4-25.7); Calc. Creatinine Clearance 96 mL/min (70-130); Carbon Dioxide 28 mmol/L (22-29); Chloride 103 mmol/L (98-107); Glucose 95 mg/dL (70-105); Sodium 138 mmol/L (136-145)
[2022-01-06] MEDS: Aspirin 81 mg Enteric Coated Tablet PO SCH ×2 (09:21→20:33)
[2022-01-06] MEDS: Acetaminophen/Codeine 30-300mg Tablet PO PRN ×2 (09:21→17:07)
[2022-01-06] MEDS: Lisinopril 20 MG TAB PO SCH (09:22)
[2022-01-06] MEDS: Carvedilol 3.125 MG TAB PO SCH ×2 (09:22→17:07)
[2022-01-06] MEDS: Gabapentin 300 MG CAP PO SCH ×2 (09:23→20:33)
[2022-01-06] MEDS: Venlafaxine HCl XR 150 MG CAP PO SCH (09:23)
[2022-01-06] MEDS: Amlodipine 5 MG TAB PO SCH (09:23)
[2022-01-06] MEDS: Enoxaparin Sodium 40 MG/0.4 ML SYRINGE SC SCH (09:24)
[2022-01-06] MEDS ORDERED: Prochlorperazine Maleate 5 MG TAB PO SCH (15:15)
[2022-01-06] MEDS ORDERED: Lactated Ringer's 1,000 ML IV SCH (15:15)
[2022-01-06] MEDS: rOPINIRole HCl 1 MG TAB PO SCH (20:32)
[2022-01-06] MEDS: Atorvastatin Calcium 40 MG TAB PO SCH (20:33)
[2022-01-07] MEDS: oxyCODONE 5 MG TAB PO PRN ×4 (00:15→20:27)
[2022-01-07 05:12] LABS: #Eosinphils 0.5 thou/uL (0.0-0.7); #Lymphocytes 2.3 thou/uL (1.20-3.40); #Monocytes 0.8 thou/uL (0.11-0.59); #Neutrophils 3.7 thou/uL (1.40-6.50); %Basophils 0.5 % (0.0-1.0); %Eosinophils 7.4 % (0.0-10.0); %Lymphocytes 30.8 % (21.0-51.0); %Monocytes 10.7 % (0.0-10.0); %Neutrophils 50.7 % (42.0-75.0); Hemoglobin 12.6 g/dL (14.0-18.0); Mean Corpuscular HGB CONC 33.1 g/dL (32.0-36.0); Mean Corpuscular Hemoglobin 30.7 pg (27.0-31.0); Mean Corpuscular Volume 92.6 fL (78.0-98.0); Mean Platelet Volume 6.6 fL (7.4-10.4); Platelet Count 290 thou/uL (130-400); RBC Distribution Width 12.8 % (11.5-14.5); White Blood Cell (WBC) Count 7.4 thou/uL (4.8-10.8)
[2022-01-07 05:32] LABS: Anion Gap 11 mmol/L (10-20); BUN (Urea Nitrogen) 15 mg/dL (8.4-25.7); Calc. Creatinine Clearance 97 mL/min (70-130); Calcium 8.7 mg/dL (7.8-10.44); Carbon Dioxide 29 mmol/L (22-29); Chloride 101 mmol/L (98-107); Glucose 83 mg/dL (70-105); Potassium 4.1 mmol/L (3.5-5.1); Sodium 137 mmol/L (136-145)
[2022-01-07] MEDS: Acetaminophen/Codeine 30-300mg Tablet PO PRN (08:58)
[2022-01-07] MEDS: Lisinopril 20 MG TAB PO SCH (08:58)
[2022-01-07] MEDS: Carvedilol 3.125 MG TAB PO SCH ×2 (08:58→18:16)
[2022-01-07] MEDS: Aspirin 81 mg Enteric Coated Tablet PO SCH ×2 (08:58→20:28)
[2022-01-07] MEDS: Gabapentin 300 MG CAP PO SCH ×2 (08:59→20:29)
[2022-01-07] MEDS: Enoxaparin Sodium 40 MG/0.4 ML SYRINGE SC SCH (08:59)
[2022-01-07] MEDS: Venlafaxine HCl XR 150 MG CAP PO SCH (08:59)
[2022-01-07] MEDS: Amlodipine 5 MG TAB PO SCH (08:59)
[2022-01-07] MEDS ORDERED: chlorproMAZINE HCl 50 MG/2 ML AMP SLOW IVP PRN (11:50)
[2022-01-07] MEDS: rOPINIRole HCl 1 MG TAB PO SCH (20:28)
[2022-01-07] MEDS: Atorvastatin Calcium 40 MG TAB PO SCH (20:29)
[2022-01-08] MEDS: oxyCODONE 5 MG TAB PO PRN (03:53)
[2022-01-08 04:42] LABS: #Basophils 0.1 thou/uL (0.0-0.2); #Eosinphils 0.6 thou/uL (0.0-0.7); #Lymphocytes 2.2 thou/uL (1.20-3.40); #Monocytes 0.8 thou/uL (0.11-0.59); #Neutrophils 4.6 thou/uL (1.40-6.50); %Basophils 0.6 % (0.0-1.0); %Eosinophils 6.7 % (0.0-10.0); %Lymphocytes 26.1 % (21.0-51.0); %Monocytes 10.2 % (0.0-10.0); %Neutrophils 56.4 % (42.0-75.0); Hemoglobin 12.6 g/dL (14.0-18.0); Mean Corpuscular HGB CONC 33.4 g/dL (32.0-36.0); Mean Corpuscular Hemoglobin 30.8 pg (27.0-31.0); Mean Corpuscular Volume 92.2 fL (78.0-98.0); Mean Platelet Volume 6.3 fL (7.4-10.4); Platelet Count 280 thou/uL (130-400); RBC Distribution Width 12.6 % (11.5-14.5); Red Blood Cell (RBC) Count 4.11 mill/uL (4.70-6.10); White Blood Cell (WBC) Count 8.2 thou/uL (4.8-10.8)
[2022-01-08 05:01] LABS: Anion Gap 10 mmol/L (10-20); BUN (Urea Nitrogen) 22 mg/dL (8.4-25.7); Calc. Creatinine Clearance 82 mL/min (70-130); Calcium 9.1 mg/dL (7.8-10.44); Carbon Dioxide 29 mmol/L (22-29); Chloride 103 mmol/L (98-107); Glucose 104 mg/dL (70-105); Potassium 3.9 mmol/L (3.5-5.1); Sodium 138 mmol/L (136-145)
[2022-01-08] MEDS: Lisinopril 20 MG TAB PO SCH (05:10)
[2022-01-08] MEDS: Carvedilol 3.125 MG TAB PO SCH (05:10)
[2022-01-08] MEDS ORDERED: ceFAZolin 2 GM/Dextrose 50 ML 2 GM in Premix Bag 1 BAG IVPB SCH (06:00)
[2022-01-08] MEDS ORDERED: Bupivacaine PF 0.5% 30 ML VIAL ONE (06:25)
[2022-01-08] MEDS ORDERED: Dexamethasone 4 mg/ml Vial ONE (06:25)
[2022-01-08] MEDS ORDERED: Albumin 5% 500 ML ONE (06:25)
[2022-01-08] MEDS ORDERED: EPINEPHrine 1 MG/ML AMP ONE (06:25)
[2022-01-08] MEDS ORDERED: Dexmedetomidine 200 MCG/2 ML VIAL ONE (06:48)
[2022-01-08] MEDS ORDERED: Midazolam HCl 5 mg/5 ml Vial ONE (06:48)
[2022-01-08] MEDS ORDERED: Fentanyl 100 MCG/2 ML VIAL ONE (06:48)
[2022-01-08] MEDS ORDERED: Heparin 10,000 UNITS/1 ML VIAL 30,000 UNITS in Sodium Chloride 0.9% 1,000 ML FS SCH (07:00)
[2022-01-08] MEDS ORDERED: Sodium Chloride 0.9% 10 ML ONE (07:09)
[2022-01-08] MEDS ORDERED: PHENYLEPHRINE-NS 100 MCG/ML 10 ML SYRINGE ONE (07:10)
[2022-01-08] MEDS ORDERED: Lidocaine 2% PF 5 ML VIAL ONE (07:11)
[2022-01-08] MEDS ORDERED: Lidocaine 1% MPF 2 ML VIAL ONE (07:12)
[2022-01-08] MEDS ORDERED: Ondansetron ODT 4 MG TAB ONE (07:16)
[2022-01-08] MEDS ORDERED: ceFAZolin 2 GM/Dextrose 50 ML IVPB ONE (07:31)
[2022-01-08] MEDS ORDERED: Aminocaproic Acid 5 GM/20 ML VIAL ONE (07:34)
[2022-01-08] MEDS ORDERED: Lidocaine 2% PF 100 mg/5 ml Syringe ONE (07:34)
[2022-01-08] MEDS ORDERED: Ondansetron PF 4 MG/2 ML Vial ONE (07:34)
[2022-01-08] MEDS ORDERED: Sodium Bicarb 50 MEQ/50 ML Abboject 8.4% SYRINGE ONE (07:34)
[2022-01-08] MEDS ORDERED: Calcium Chloride 1 GM/10 ML Abboject SYRINGE ONE (07:34)
[2022-01-08] MEDS ORDERED: Magnesium Sulfate 1 GM/2 ML VIAL ONE (07:34)
[2022-01-08] MEDS ORDERED: Thrombin 5000 UNITS/5 ML VIAL ONE (07:34)
[2022-01-08] MEDS ORDERED: Protamine Sulfate 250 MG/25 ML VIAL ONE (07:34)
[2022-01-08] MEDS ORDERED: Heparin 30,000 units/30 ml VIAL ONE (07:34)
[2022-01-08] MEDS ORDERED: Glycopyrrolate 0.2 MG/ML 5 ML SYRINGE ONE (07:34)
[2022-01-08] MEDS ORDERED: Papaverine 60 MG/2 ML VIAL ONE (07:34)
[2022-01-08] MEDS ORDERED: Cardioplegic Soln 1,000 ML BAG ONE (07:34)
[2022-01-08] MEDS ORDERED: Lidocaine 1% PF 5 ML VIAL ONE (07:34)
[2022-01-08] MEDS ORDERED: Norepinephrine 4 MG/4 ML VIAL ONE (07:34)
[2022-01-08] MEDS ORDERED: Vecuronium 10 MG VIAL ONE (07:34)
[2022-01-08] MEDS ORDERED: Mannitol 12.5 GM/50 ML ONE (07:34)
[2022-01-08] MEDS ORDERED: Heparin 5,000 UNITS/ML VIAL ONE (07:34)
[2022-01-08] MEDS ORDERED: Dexamethasone 20 MG/5 ML VIAL ONE (07:34)
[2022-01-08] MEDS ORDERED: Potassium Chloride 60 MEQ/30 ML VIAL ONE (07:34)
[2022-01-08] MEDS ORDERED: Hetastarch 6% 500 ML 500 ML IVPB PRN (10:23)
[2022-01-08] MEDS ORDERED: Nitroglycerin 50 MG/250 ML BOT 250 ML IVPB PRN (10:23)
[2022-01-08] MEDS ORDERED: Promethazine HCl 25 MG/ML VIAL IM PRN (10:23)
[2022-01-08] MEDS ORDERED: Bisacodyl 5 MG TAB PO PRN (10:23)
[2022-01-08] MEDS ORDERED: Fentanyl 100 MCG/2 ML VIAL SLOW IVP PRN ×2 (10:23→15:08)
[2022-01-08] MEDS ORDERED: Ondansetron PF 4 MG/2 ML Vial IVP PRN (10:23)
[2022-01-08] MEDS ORDERED: Bisacodyl 10 MG SUPP PR PRN (10:23)
[2022-01-08] MEDS ORDERED: Mag-Al 1200 mg/1200 mg/30 ML UDCUP PO PRN (10:23)
[2022-01-08] MEDS ORDERED: Potassium Chloride 20 MEQ/100 ML PREMIX BAG IVPB PRN (10:23)
[2022-01-08] MEDS ORDERED: Guaifenesin DM 100-10/5 ML UDCUP PO PRN (10:23)
[2022-01-08] MEDS ORDERED: Acetaminophen 325 MG TAB PO PRN (10:23)
[2022-01-08] MEDS ORDERED: Norepinephrine 8 MG/0.9% NS 250 ML IVPB PRN (10:23)
[2022-01-08] MEDS ORDERED: traMADol HCl 50 MG TAB PO PRN ×2 (10:23)
[2022-01-08] MEDS ORDERED: hydrALAZINE 20 MG/ML VIAL SLOW IVP PRN (10:23)
[2022-01-08] MEDS ORDERED: D5 1/2 NS w/20 mEq KCL 1,000 ML IV SCH (10:30)
[2022-01-08] MEDS ORDERED: Magnesium 2 GM/50 ML 2 GM in Premix Bag 1 BAG IVPB SCH (10:30)
[2022-01-08] MEDS ORDERED: Morphine 4 MG/ML VIAL SLOW IVP PRN (10:47)
[2022-01-08] MEDS ORDERED: Insulin Regular 300 UNITS/3 ML VIAL SC PRN (11:00)
[2022-01-08] MEDS ORDERED: Lantus 1000 UNITS/10 ML VIAL SC PRN (11:00)
[2022-01-08] MEDS ORDERED: HUMULIN R 100 UNITS in Sodium Chloride 0.9% 100 ML IVPB SCH (11:00)
[2022-01-08] MEDS ORDERED: Dextrose 5% in Water 1,000 ML IV PRN (11:00)
[2022-01-08] MEDS ORDERED: Dextrose 50% Abboject 50 ML SYRINGE SLOW IVP PRN (11:00)
[2022-01-08 11:04] LABS: #Eosinphils 0.3 thou/uL (0.0-0.7); #Monocytes 0.7 thou/uL (0.11-0.59); #Neutrophils 14.7 thou/uL (1.40-6.50); %Eosinophils 1.5 % (0.0-10.0); %Lymphocytes 11.3 % (21.0-51.0); %Monocytes 4.2 % (0.0-10.0); Hemoglobin 10.9 g/dL (14.0-18.0); Mean Corpuscular HGB CONC 33.7 g/dL (32.0-36.0); Mean Corpuscular Hemoglobin 31.1 pg (27.0-31.0); Mean Corpuscular Volume 92.3 fL (78.0-98.0); Mean Platelet Volume 6.4 fL (7.4-10.4); Platelet Count 213 thou/uL (130-400); RBC Distribution Width 12.7 % (11.5-14.5); Red Blood Cell (RBC) Count 3.51 mill/uL (4.70-6.10); White Blood Cell (WBC) Count 17.7 thou/uL (4.8-10.8)
[2022-01-08 11:16] LABS: INR-International Normal Ratio 1.3; Prothrombin Time 15.9 sec (12.0-14.7)
[2022-01-08] MEDS: Ketorolac Tromethamine 30 MG/ML VIAL IVP SCH ×3 (11:27→23:14)
[2022-01-08 11:36] LABS: Anion Gap 10 mmol/L (10-20); BUN (Urea Nitrogen) 18 mg/dL (8.4-25.7); Calc. Creatinine Clearance 105 mL/min (70-130); Calcium 7.7 mg/dL (7.8-10.44); Carbon Dioxide 24 mmol/L (22-29); Chloride 106 mmol/L (98-107); Glucose 168 mg/dL (70-105); Potassium 4.9 mmol/L (3.5-5.1); Sodium 135 mmol/L (136-145)
[2022-01-08] MEDS: Fentanyl 100 MCG/2 ML VIAL SLOW IVP PRN ×3 (11:43→15:53)
[2022-01-08] MEDS ORDERED: oxyCODONE/Acetaminophen 5 mg/325 mg Tablet PO PRN (15:07)
[2022-01-08] MEDS: ceFAZolin 2 GM/Dextrose 50 ML 2 GM in Premix Bag 1 BAG IVPB SCH ×2 (15:20→23:16)
[2022-01-08 16:27] LABS: Hemoglobin 12.2 g/dL (14.0-18.0)
[2022-01-08] MEDS ORDERED: chlorproMAZINE HCl 50 MG/2 ML AMP SLOW IVP SCH (16:45)
[2022-01-08 17:41] LABS: Potassium 4.2 mmol/L (3.5-5.1)
[2022-01-08] MEDS ORDERED: Famotidine/PF 20 mg/2ml Vial SLOW IVP SCH (21:00)
[2022-01-08] MEDS: Atorvastatin Calcium 40 MG TAB PO SCH (21:07)
[2022-01-09] MEDS: Fentanyl 100 MCG/2 ML VIAL SLOW IVP PRN ×6 (00:25→10:34)
[2022-01-09] MEDS: Ketorolac Tromethamine 30 MG/ML VIAL IVP SCH ×3 (05:24→17:30)
[2022-01-09 05:25] LABS: Band 14 % (5-11); Hemoglobin 11.7 g/dL (14.0-18.0); Lymphocytes 8 % (21-51); MDiff Complete? YES; Mean Corpuscular HGB CONC 32.7 g/dL (32.0-36.0); Mean Corpuscular Hemoglobin 30.6 pg (27.0-31.0); Mean Corpuscular Volume 93.3 fL (78.0-98.0); Mean Platelet Volume 7.5 fL (7.4-10.4); Monocytes 6 % (0-10); Neutrophil 72 % (42-75); Platelet Count 245 thou/uL (130-400); Platelet Morphology Comment Appears Adequate; RBC Distribution Width 12.8 % (11.5-14.5); Red Blood Cell (RBC) Count 3.82 mill/uL (4.70-6.10)
[2022-01-09 05:27] LABS: Anion Gap 11 mmol/L (10-20); BUN (Urea Nitrogen) 17 mg/dL (8.4-25.7); Calc. Creatinine Clearance 94 mL/min (70-130); Calcium 8.4 mg/dL (7.8-10.44); Carbon Dioxide 25 mmol/L (22-29); Chloride 104 mmol/L (98-107); Glucose 125 mg/dL (70-105); Potassium 3.8 mmol/L (3.5-5.1); Sodium 136 mmol/L (136-145)
[2022-01-09 05:29] VITALS: BMI 27.7
[2022-01-09] MEDS ORDERED: OxyCODONE IR 30 MG TAB PO PRN (06:38)
[2022-01-09] MEDS: ceFAZolin 2 GM/Dextrose 50 ML 2 GM in Premix Bag 1 BAG IVPB SCH (06:56)
[2022-01-09] MEDS: Venlafaxine HCl XR 150 MG CAP PO SCH (08:21)
[2022-01-09] MEDS: Carvedilol 3.125 MG TAB PO SCH ×2 (08:21→17:31)
[2022-01-09] MEDS: Magnesium 2 GM/50 ML 2 GM in Premix Bag 1 BAG IVPB SCH (08:22)
[2022-01-09] MEDS: oxyCODONE 5 MG TAB PO PRN ×3 (08:27→19:38)
[2022-01-09] MEDS ORDERED: Aspirin 325 MG TAB PO SCH (09:00)
[2022-01-09] MEDS ORDERED: chlorproMAZINE HCl 12.5 MG in Sodium Chloride 0.9% 50 ML IVPB SCH (11:45)
[2022-01-09] MEDS ORDERED: Guaifenesin DM 100-10/5 ML UDCUP PO PRN (14:18)
[2022-01-09] MEDS ORDERED: Mineral Oil ENEMA PR PRN (14:18)
[2022-01-09] MEDS ORDERED: Mag-Al 1200 mg/1200 mg/30 ML UDCUP PO PRN (14:18)
[2022-01-09] MEDS ORDERED: Bisacodyl 10 MG SUPP PR PRN (14:18)
[2022-01-09] MEDS ORDERED: diphenhydrAMINE 25 MG CAP PO PRN (14:18)
[2022-01-09] MEDS ORDERED: Nitroglycerin 0.4 MG TAB (25 Tab Bottle) SL PRN (14:18)
[2022-01-09] MEDS ORDERED: Milk Of Magnesia 30 ML UDCUP PO PRN (14:18)
[2022-01-09] MEDS ORDERED: Zolpidem Tartrate 5 MG TAB PO PRN (14:18)
[2022-01-09] MEDS ORDERED: Bisacodyl 5 MG TAB PO PRN (14:18)
[2022-01-09] MEDS: Atorvastatin Calcium 40 MG TAB PO SCH (19:39)
[2022-01-10] MEDS: Ketorolac Tromethamine 30 MG/ML VIAL IVP SCH ×5 (00:41→23:45)
[2022-01-10 06:20] LABS: #Eosinphils 0.1 thou/uL (0.0-0.7); #Lymphocytes 1.9 thou/uL (1.20-3.40); #Monocytes 1.5 thou/uL (0.11-0.59); #Neutrophils 11.3 thou/uL (1.40-6.50); %Basophils 0.1 % (0.0-1.0); %Eosinophils 0.4 % (0.0-10.0); %Lymphocytes 12.6 % (21.0-51.0); %Monocytes 9.9 % (0.0-10.0); %Neutrophils 77.1 % (42.0-75.0); Hemoglobin 10.9 g/dL (14.0-18.0); Hemoglobin A1c 5.6 % (4.0-6.0); Mean Corpuscular Hemoglobin 30.8 pg (27.0-31.0); Mean Corpuscular Volume 93.4 fL (78.0-98.0); Mean Platelet Volume 7.5 fL (7.4-10.4); Platelet Count 212 thou/uL (130-400); RBC Distribution Width 13.2 % (11.5-14.5); Red Blood Cell (RBC) Count 3.53 mill/uL (4.70-6.10); White Blood Cell (WBC) Count 14.7 thou/uL (4.8-10.8)
[2022-01-10 06:21] LABS: ALT (SGPT) 11 U/L (8-55); AST (SGOT) 21 U/L (5-34); Albumin 3.2 g/dL (3.5-5.0); Alkaline Phosphatase 37 U/L (40-110); Anion Gap 11 mmol/L (10-20); BUN (Urea Nitrogen) 22 mg/dL (8.4-25.7); Bilirubin, Total 0.5 mg/dL (0.2-1.2); Calc. Creatinine Clearance 102 mL/min (70-130); Calcium 8.1 mg/dL (7.8-10.44); Carbon Dioxide 23 mmol/L (22-29); Chloride 104 mmol/L (98-107); Globulin 2.5 g/dL (2.4-3.5); Glucose 146 mg/dL (70-105); Potassium 3.9 mmol/L (3.5-5.1); Protein, Total 5.7 g/dL (6.0-8.3); Sodium 134 mmol/L (136-145)
[2022-01-10] MEDS: Venlafaxine HCl XR 150 MG CAP PO SCH (08:11)
[2022-01-10] MEDS: oxyCODONE 5 MG TAB PO PRN ×4 (08:11→20:12)
[2022-01-10] MEDS: Aspirin 325 mg Enteric Coated Tablet PO SCH (08:11)
[2022-01-10] MEDS: Carvedilol 3.125 MG TAB PO SCH ×4 (08:12→16:37)
[2022-01-10] MEDS: Magnesium 2 GM/50 ML 2 GM in Premix Bag 1 BAG IVPB SCH (08:14)
[2022-01-10 08:55] LABS: Actual Bicarbonate (HCO3a) 24.7 mEq/L (22-28); Analyzer IN Cardio OR; Base Excess (BEa) 0.8 mEq/L (-2.0 to +3.0); Carboxyhemoglobin (COHb) 0.2 gm% (0.0-3.0); Hemoglobin (Hb) 11.8 g/dL (14.0-18.0); Potassium - ABG Lab 3.94 mmol/L (3.70-5.30); pH, Arterial 7.44 (7.35-7.45)
[2022-01-10 08:56] LABS: Actual Bicarbonate (HCO3a) 25.5 mEq/L (22-28); Analyzer IN Cardio OR; Base Excess (BEa) -0.1 mEq/L (-2.0 to +3.0); CO2 Tension 45.4 mmHg (35.0-45.0); Calcium, Ionized (arterial) 1.09 mmol/L (1.12-1.30); Carboxyhemoglobin (COHb) 0.3 gm% (0.0-3.0); Hemoglobin (Hb) 11.2 g/dL (14.0-18.0); O2 Tension (PaO2), arterial 350.3 mmHg (80.0-100.0); Potassium - ABG Lab 4.29 mmol/L (3.70-5.30); pH, Arterial 7.37 (7.35-7.45)
[2022-01-10 08:56] LABS: Actual Bicarbonate (HCO3a) 23.4 mEq/L (22-28); Analyzer IN Cardio OR; Base Excess (BEa) -1.7 mEq/L (-2.0 to +3.0); CO2 Tension 40.8 mmHg (35.0-45.0); Calcium, Ionized (arterial) 0.95 mmol/L (1.12-1.30); Carboxyhemoglobin (COHb) 0.3 gm% (0.0-3.0); O2 Tension (PaO2), arterial 368.7 mmHg (80.0-100.0); Potassium - ABG Lab 4.28 mmol/L (3.70-5.30); pH, Arterial 7.38 (7.35-7.45)
[2022-01-10 08:56] LABS: Actual Bicarbonate (HCO3a) 29.3 mEq/L (22-28); Analyzer IN Cardio OR; Base Excess (BEa) 3.3 mEq/L (-2.0 to +3.0); CO2 Tension 52.3 mmHg (35.0-45.0); Carboxyhemoglobin (COHb) 0.4 gm% (0.0-3.0); Hemoglobin (Hb) 8.7 g/dL (14.0-18.0); O2 Tension (PaO2), arterial 359.6 mmHg (80.0-100.0); Potassium - ABG Lab 4.86 mmol/L (3.70-5.30); pH, Arterial 7.37 (7.35-7.45)
[2022-01-10 08:57] LABS: Actual Bicarbonate (HCO3a) 26.2 mEq/L (22-28); Analyzer IN Cardio OR; Calcium, Ionized (arterial) 1.11 mmol/L (1.12-1.30); Carboxyhemoglobin (COHb) 0.3 gm% (0.0-3.0); Hemoglobin (Hb) 10.6 g/dL (14.0-18.0); Potassium - ABG Lab 5.03 mmol/L (3.70-5.30); pH, Arterial 7.34 (7.35-7.45)
[2022-01-10 08:57] LABS: Puncture Site Arterial Line
[2022-01-10 08:57] LABS: Actual Bicarbonate (HCO3a) 23.9 mEq/L (22-28); Analyzer IN Cardio OR; Base Excess (BEa) -0.4 mEq/L (-2.0 to +3.0); CO2 Tension 37.2 mmHg (35.0-45.0); Calcium, Ionized (arterial) 1.13 mmol/L (1.12-1.30); Carboxyhemoglobin (COHb) 0.5 gm% (0.0-3.0); Hemoglobin (Hb) 7.9 g/dL (14.0-18.0); O2 Tension (PaO2), arterial 361.3 mmHg (80.0-100.0); Potassium - ABG Lab 4.57 mmol/L (3.70-5.30); pH, Arterial 7.43 (7.35-7.45)
[2022-01-10 08:58] LABS: Puncture Site Arterial Line
[2022-01-10 08:58] LABS: Puncture Site Arterial Line
[2022-01-10 08:58] LABS: Puncture Site Arterial Line
[2022-01-10 08:59] LABS: Puncture Site Arterial Line
[2022-01-10 09:00] LABS: O2 Tension (PaO2), arterial 560.1 mmHg (80.0-100.0); Puncture Site Arterial Line
[2022-01-10] MEDS: Atorvastatin Calcium 40 MG TAB PO SCH (20:12)
[2022-01-10] MEDS ORDERED: Gabapentin 300 MG CAP PO SCH (22:00)
[2022-01-10] MEDS ORDERED: rOPINIRole HCl 2 MG TAB PO SCH (22:00)
[2022-01-11] MEDS: oxyCODONE 5 MG TAB PO PRN ×6 (00:17→20:28)
[2022-01-11 05:33] LABS: #Basophils 0.1 thou/uL (0.0-0.2); #Eosinphils 0.2 thou/uL (0.0-0.7); #Lymphocytes 1.9 thou/uL (1.20-3.40); #Monocytes 1.5 thou/uL (0.11-0.59); #Neutrophils 7.8 thou/uL (1.40-6.50); %Basophils 0.7 % (0.0-1.0); %Eosinophils 1.4 % (0.0-10.0); %Lymphocytes 16.8 % (21.0-51.0); %Monocytes 12.9 % (0.0-10.0); %Neutrophils 68.1 % (42.0-75.0); Hemoglobin 10.9 g/dL (14.0-18.0); Mean Corpuscular HGB CONC 32.2 g/dL (32.0-36.0); Mean Corpuscular Hemoglobin 30.7 pg (27.0-31.0); Mean Corpuscular Volume 95.2 fL (78.0-98.0); Mean Platelet Volume 7.1 fL (7.4-10.4); Platelet Count 199 thou/uL (130-400); RBC Distribution Width 12.9 % (11.5-14.5); Red Blood Cell (RBC) Count 3.56 mill/uL (4.70-6.10); White Blood Cell (WBC) Count 11.4 thou/uL (4.8-10.8)
[2022-01-11 05:44] LABS: ALT (SGPT) 8 U/L (8-55); AST (SGOT) 15 U/L (5-34); Albumin 3.2 g/dL (3.5-5.0); Alkaline Phosphatase 36 U/L (40-110); Anion Gap 14 mmol/L (10-20); BUN (Urea Nitrogen) 20 mg/dL (8.4-25.7); Bilirubin, Total 0.7 mg/dL (0.2-1.2); Calc. Creatinine Clearance 113 mL/min (70-130); Calcium 8.2 mg/dL (7.8-10.44); Carbon Dioxide 21 mmol/L (22-29); Chloride 104 mmol/L (98-107); Globulin 2.7 g/dL (2.4-3.5); Glucose 99 mg/dL (70-105); Protein, Total 5.9 g/dL (6.0-8.3); Sodium 135 mmol/L (136-145)
[2022-01-11] MEDS: Ketorolac Tromethamine 30 MG/ML VIAL IVP SCH ×2 (05:53→12:01)
[2022-01-11] MEDS: Aspirin 325 mg Enteric Coated Tablet PO SCH (08:12)
[2022-01-11] MEDS: Venlafaxine HCl XR 150 MG CAP PO SCH (08:13)
[2022-01-11] MEDS: Carvedilol 3.125 MG TAB PO SCH ×2 (08:13→16:34)
[2022-01-11] MEDS: Gabapentin 300 MG CAP PO SCH ×2 (09:58→20:20)
[2022-01-11] MEDS: Atorvastatin Calcium 40 MG TAB PO SCH (20:20)
[2022-01-11] MEDS: rOPINIRole HCl 2 MG TAB PO SCH (20:21)
[2022-01-12] MEDS: oxyCODONE 5 MG TAB PO PRN ×6 (00:47→21:15)
[2022-01-12 05:34] LABS: #Eosinphils 0.4 thou/uL (0.0-0.7); #Lymphocytes 1.7 thou/uL (1.20-3.40); #Monocytes 1.1 thou/uL (0.11-0.59); #Neutrophils 8.5 thou/uL (1.40-6.50); %Basophils 0.2 % (0.0-1.0); %Eosinophils 3.4 % (0.0-10.0); %Lymphocytes 14.3 % (21.0-51.0); %Monocytes 9.7 % (0.0-10.0); %Neutrophils 72.4 % (42.0-75.0); Hemoglobin 11.5 g/dL (14.0-18.0); Mean Corpuscular HGB CONC 31.7 g/dL (32.0-36.0); Mean Corpuscular Volume 94.5 fL (78.0-98.0); Mean Platelet Volume 7.2 fL (7.4-10.4); Platelet Count 249 thou/uL (130-400); RBC Distribution Width 12.9 % (11.5-14.5); Red Blood Cell (RBC) Count 3.85 mill/uL (4.70-6.10); White Blood Cell (WBC) Count 11.8 thou/uL (4.8-10.8)
[2022-01-12 05:55] LABS: ALT (SGPT) 10 U/L (8-55); AST (SGOT) 16 U/L (5-34); Albumin 3.5 g/dL (3.5-5.0); Alkaline Phosphatase 43 U/L (40-110); Anion Gap 14 mmol/L (10-20); BUN (Urea Nitrogen) 24 mg/dL (8.4-25.7); Bilirubin, Total 0.6 mg/dL (0.2-1.2); Calc. Creatinine Clearance 95 mL/min (70-130); Calcium 8.8 mg/dL (7.8-10.44); Carbon Dioxide 23 mmol/L (22-29); Chloride 102 mmol/L (98-107); Globulin 3.3 g/dL (2.4-3.5); Glucose 119 mg/dL (70-105); Protein, Total 6.8 g/dL (6.0-8.3); Sodium 135 mmol/L (136-145)
[2022-01-12] MEDS: Aspirin 325 mg Enteric Coated Tablet PO SCH (09:35)
[2022-01-12] MEDS: Venlafaxine HCl XR 150 MG CAP PO SCH (09:37)
[2022-01-12] MEDS: Carvedilol 3.125 MG TAB PO SCH ×2 (09:37→17:00)
[2022-01-12] MEDS: Gabapentin 300 MG CAP PO SCH ×2 (09:37→21:14)
[2022-01-12 12:12] LABS: SARS-CoV-2 PCR by NAA Not Detected (NotDetected)
[2022-01-12] MEDS: Atorvastatin Calcium 40 MG TAB PO SCH (21:14)
[2022-01-12] MEDS: rOPINIRole HCl 2 MG TAB PO SCH (21:15)
[2022-01-13] MEDS: oxyCODONE 5 MG TAB PO PRN ×3 (03:53→12:20)
[2022-01-13 07:59] VITALS: BP 119/86; TEMP 98.3
[2022-01-13] MEDS: Aspirin 325 mg Enteric Coated Tablet PO SCH (08:04)
[2022-01-13] MEDS: Gabapentin 300 MG CAP PO SCH (08:04)
[2022-01-13] MEDS: Venlafaxine HCl XR 150 MG CAP PO SCH (08:05)
[2022-01-13] MEDS: Carvedilol 3.125 MG TAB PO SCH (08:05)
== END 2022-01-13 13:45 | disposition home or self-care (01) | DRG 234 ==
LOC: ERS 21:42 → 2NO 22:35 → OBSVTOIN 01-05 07:50 → CCU 01-08 08:55 → 2NO 01-09 16:13
PROVIDERS: ADMIT Student in an Organized Health Care Education/Training Program; ATTEND Student in an Organized Health Care Education/Training Program
PROC: 4A023N7 Measurement of Cardiac Sampling and Pressure, Left Heart, Percutaneous Approach (ICD-10-PCS; principal; 2022-01-05)
PROC: B2111ZZ Fluoroscopy of Multiple Coronary Arteries using Low Osmolar Contrast (ICD-10-PCS; 2022-01-05)
PROC: B2151ZZ Fluoroscopy of Left Heart using Low Osmolar Contrast (ICD-10-PCS; 2022-01-05)
PROC: 02100Z9 Bypass Coronary Artery, One Artery from Left Internal Mammary, Open Approach (ICD-10-PCS; 2022-01-08)
PROC: 021109W Bypass Coronary Artery, Two Arteries from Aorta with Autologous Venous Tissue, Open Approach (ICD-10-PCS; 2022-01-08)
PROC: 06BQ4ZZ Excision of Left Saphenous Vein, Percutaneous Endoscopic Approach (ICD-10-PCS; 2022-01-08)
PROC: 5A1221Z Performance of Cardiac Output, Continuous (ICD-10-PCS; 2022-01-08)
DX: I25.110 Atherosclerotic heart disease of native coronary artery with unstable angina pectoris (principal); I50.22 Chronic systolic (congestive) heart failure; I48.92 Unspecified atrial flutter; Z20.822 Contact with and (suspected) exposure to COVID-19; I11.0 Hypertensive heart disease with heart failure; K21.9 Gastro-esophageal reflux disease without esophagitis; K22.70 Barrett's esophagus without dysplasia; E78.5 Hyperlipidemia, unspecified; R94.31 Abnormal electrocardiogram [ECG] [EKG]; G25.81 Restless legs syndrome; G89.29 Other chronic pain; R73.03 Prediabetes; I45.10 Unspecified right bundle-branch block; E78.00 Pure hypercholesterolemia, unspecified; M54.9 Dorsalgia, unspecified; G47.33 Obstructive sleep apnea (adult) (pediatric); F41.9 Anxiety disorder, unspecified; F32.A Depression, unspecified; E16.2 Hypoglycemia, unspecified; Z88.8 Allergy status to other drugs, medicaments and biological substances; Z79.82 Long term (current) use of aspirin; Z79.899 Other long term (current) drug therapy; I25.2 Old myocardial infarction
CPT/HCPCS: 36415; 36416; 36430; 70450; 71045; 80048; 80053; 80061; 82805; 83036; 84484; 85025; 85610; 85730; 86850; 86900; 86901; 93005; 93010; 93458; 93798; 94760; 96372; 96374; 96375; 96376; 97139; C1776; G0378; J0171; J0690; J0780; J1100; J1200; J1642; J1644; J1650; J1815; J1885; J2001; J2150; J2250; J2405; J2440; J2720; J2765; J3010; J3230; J3370; J3475; J3480; J3490; J7050; J7120; P9045; Q0162; Q0164; S0017; S0020; S0028; U0003; U0005

== ENCOUNTER 2022-03-22 09:30 | Inpatient (IN) | payer OTHER ==
[2022-03-22 11:10] VITALS: BMI 26.6
[2022-03-27] MEDS ORDERED: Vancomycin 1 GM in Premix Bag 1 BAG IVPB SCH ×3 (06:30→19:00)
[2022-03-27] MEDS ORDERED: Tranexamic Acid 1,000 MG/10 ML VIAL ONE (06:32)
[2022-03-27] MEDS ORDERED: Sodium Chloride 0.9% 100 ML ONE (06:32)
[2022-03-27] MEDS ORDERED: Vancomycin 1 GM/200 ML BAG ONE (06:32)
[2022-03-27] MEDS ORDERED: ceFAZolin (BATCH) 2 GM/100 ML BAG ONE (06:44)
[2022-03-27] MEDS ORDERED: Dexamethasone 20 MG/5 ML VIAL ONE (07:11)
[2022-03-27] MEDS ORDERED: Ketorolac Tromethamine 30 MG/ML VIAL ONE (07:11)
[2022-03-27] MEDS ORDERED: Ondansetron PF 4 MG/2 ML Vial ONE (07:11)
[2022-03-27] MEDS ORDERED: Glycopyrrolate 0.2 MG/ML 5 ML SYRINGE ONE (07:11)
[2022-03-27] MEDS ORDERED: Rocuronium Bromide 10 MG/ML (10ML VIAL) ONE (07:11)
[2022-03-27] MEDS ORDERED: PROPOFOL 200 MG/20 ML VIAL ONE (07:11)
[2022-03-27] MEDS ORDERED: PHENYLEPHRINE-NS 100 MCG/ML 10 ML SYRINGE ONE (07:11)
[2022-03-27] MEDS ORDERED: ePHEDrine 50 MG/ML VIAL ONE (07:11)
[2022-03-27] MEDS ORDERED: Lidocaine 1% PF 5 ML VIAL ONE (07:11)
[2022-03-27] MEDS ORDERED: HYDROmorphone 2 MG/ML VIAL ONE ×2 (07:38→09:04)
[2022-03-27] MEDS ORDERED: Dexmedetomidine 200 MCG/2 ML VIAL ONE (08:06)
[2022-03-27] MEDS ORDERED: diphenhydrAMINE 50 MG/ML VIAL IM PRN (09:00)
[2022-03-27] MEDS ORDERED: Ondansetron HCl/PF 4 MG/2 ML Vial IVP PRN (09:00)
[2022-03-27] MEDS ORDERED: Ondansetron PF 4 MG/2 ML Vial IVP PRN ×2 (09:00→09:10)
[2022-03-27] MEDS ORDERED: HYDROmorphone 10 mg/100 ml CADD IVPB PRN (09:00)
[2022-03-27] MEDS ORDERED: Promethazine HCl 25 MG/ML VIAL IM PRN ×3 (09:00→09:10)
[2022-03-27] MEDS ORDERED: diphenhydrAMINE 50 MG/ML VIAL IVP PRN (09:00)
[2022-03-27] MEDS ORDERED: diphenhydrAMINE 25 MG CAP PO PRN ×2 (09:00→09:10)
[2022-03-27] MEDS ORDERED: Naloxone HCl 0.4 mg/ml Vial IV PRN (09:00)
[2022-03-27] MEDS ORDERED: Zolpidem Tartrate 5 MG TAB PO PRN ×2 (09:00→09:10)
[2022-03-27] MEDS ORDERED: Promethazine HCl 25 MG/ML VIAL IVPB PRN (09:00)
[2022-03-27] MEDS ORDERED: HYDROmorphone 2 MG/ML VIAL SLOW IVP PRN (09:00)
[2022-03-27] MEDS ORDERED: Ketorolac Tromethamine 30 MG/ML VIAL IVP PRN (09:10)
[2022-03-27] MEDS ORDERED: Acetaminophen 325 MG TAB PO PRN (09:10)
[2022-03-27] MEDS ORDERED: Nitroglycerin 0.4 MG TAB (25 Tab Bottle) SL PRN (11:56)
[2022-03-27] MEDS ORDERED: Ondansetron ODT 8 MG TAB PO PRN (12:01)
[2022-03-27] MEDS: Communication Order-Pharmacy FS SCH (12:18)
[2022-03-27] MEDS: Aspirin 81 mg Enteric Coated Tablet PO SCH ×2 (12:18→20:10)
[2022-03-27] MEDS: Ferrous Gluconate 324 MG TAB PO SCH ×2 (12:19→20:10)
[2022-03-27] MEDS: Multivitamin W/ Minerals 1 TAB PO SCH (12:19)
[2022-03-27] MEDS: Senokot S 8.6-50 MG TAB PO SCH ×2 (12:19→20:25)
[2022-03-27] MEDS ORDERED: HumaLOG 300 UNITS/3 ML VIAL SC PRN (14:02)
[2022-03-27] MEDS: ceFAZolin (BATCH) 2 GM in Premix Bag 1 BAG IVPB SCH ×2 (14:02→21:07)
[2022-03-27] MEDS ORDERED: Dextrose 5% in Water 1,000 ML IV PRN (14:02)
[2022-03-27] MEDS ORDERED: Dextrose 50% Abboject 50 ML SYRINGE SLOW IVP PRN (14:02)
[2022-03-27] MEDS: metFORMIN 500 MG TAB PO SCH (17:44)
[2022-03-27] MEDS: Carvedilol 3.125 MG TAB PO SCH (17:44)
[2022-03-27] MEDS: HumaLOG 300 UNITS/3 ML VIAL SC PRN (18:54)
[2022-03-27] MEDS: Gabapentin 400 MG CAP PO SCH (20:08)
[2022-03-27] MEDS ORDERED: Atorvastatin Calcium 40 MG TAB PO SCH (21:00)
[2022-03-27] MEDS ORDERED: rOPINIRole HCl 2 MG TAB PO SCH (21:00)
[2022-03-28] MEDS: HumaLOG 300 UNITS/3 ML VIAL SC PRN (05:56)
[2022-03-28 07:05] LABS: Hemoglobin 9.4 g/dL (14.0-18.0); Mean Corpuscular HGB CONC 32.3 g/dL (32.0-36.0); Mean Corpuscular Hemoglobin 29.4 pg (27.0-31.0); Mean Platelet Volume 7.1 fL (7.4-10.4); Platelet Count 264 thou/uL (130-400); RBC Distribution Width 14.9 % (11.5-14.5); Red Blood Cell (RBC) Count 3.19 mill/uL (4.70-6.10); White Blood Cell (WBC) Count 15.9 thou/uL (4.8-10.8)
[2022-03-28] MEDS: Aspirin 81 mg Enteric Coated Tablet PO SCH (08:23)
[2022-03-28] MEDS: Gabapentin 400 MG CAP PO SCH (08:23)
[2022-03-28] MEDS: Carvedilol 3.125 MG TAB PO SCH (08:27)
[2022-03-28] MEDS: Senokot S 8.6-50 MG TAB PO SCH (08:28)
[2022-03-28] MEDS: metFORMIN 500 MG TAB PO SCH (08:28)
[2022-03-28] MEDS: Ferrous Gluconate 324 MG TAB PO SCH (08:28)
[2022-03-28] MEDS: Multivitamin W/ Minerals 1 TAB PO SCH (08:28)
[2022-03-28] MEDS ORDERED: Lisinopril 5 MG TAB PO SCH (09:00)
[2022-03-28] MEDS ORDERED: Venlafaxine HCl XR 150 MG CAP PO SCH (09:00)
[2022-03-28] MEDS ORDERED: Morphine 4 MG/ML VIAL SLOW IVP PRN (09:14)
[2022-03-28] MEDS ORDERED: Morphine 2 MG/ML VIAL SLOW IVP PRN (09:14)
[2022-03-28] MEDS ORDERED: Acetaminophen 325 MG TAB PO PRN (11:49)
[2022-03-28] MEDS ORDERED: oxyCODONE 5 MG TAB PO SCH (12:00)
[2022-03-28] MEDS ORDERED: Acetaminophen 500 MG TAB PO SCH (12:00)
[2022-03-28 12:42] VITALS: BP 112/69; TEMP 98
[2022-03-28] MEDS: Communication Order-Pharmacy FS SCH (16:15)
== END 2022-03-28 15:40 | disposition home or self-care (01) | DRG 470 ==
LOC: INTOOBSV 03-27 05:24 → SURG A 03-27 05:24 → SJJU 03-27 11:25 → OBSVTOIN 03-28 12:26
PROVIDERS: ADMIT Orthopaedic Surgery; ATTEND Orthopaedic Surgery
PROC: 0SR903Z Replacement of Right Hip Joint with Ceramic Synthetic Substitute, Open Approach (ICD-10-PCS; principal; 2022-03-27)
PROC: 0QP604Z Removal of Internal Fixation Device from Right Upper Femur, Open Approach (ICD-10-PCS; 2022-03-27)
DX: M16.51 Unilateral post-traumatic osteoarthritis, right hip (principal); I50.22 Chronic systolic (congestive) heart failure; Z20.822 Contact with and (suspected) exposure to COVID-19; S72.001S Fracture of unspecified part of neck of right femur, sequela; I25.10 Atherosclerotic heart disease of native coronary artery without angina pectoris; I11.0 Hypertensive heart disease with heart failure; E78.5 Hyperlipidemia, unspecified; E11.9 Type 2 diabetes mellitus without complications; K22.70 Barrett's esophagus without dysplasia; K21.9 Gastro-esophageal reflux disease without esophagitis; G25.81 Restless legs syndrome; G89.29 Other chronic pain; M54.9 Dorsalgia, unspecified; Z95.5 Presence of coronary angioplasty implant and graft; Z95.1 Presence of aortocoronary bypass graft; Z88.8 Allergy status to other drugs, medicaments and biological substances; Z98.890 Other specified postprocedural states; Z82.49 Family history of ischemic heart disease and other diseases of the circulatory system; Z79.899 Other long term (current) drug therapy; Z79.82 Long term (current) use of aspirin; Z79.84 Long term (current) use of oral hypoglycemic drugs
CPT/HCPCS: 36415; 36416; 72170; 85027; 96365; 96375; 96376; C1776; G0378; J0690; J1100; J1170; J1815; J1885; J2405; J2704; J3370; J3490

== ENCOUNTER 2022-03-30 02:03 | Observation (INO) | payer OTHER ==
[2022-03-30] MEDS ORDERED: Ketamine 50 MG/ML (10ML VIAL) ONE (02:26)
[2022-03-30] MEDS ORDERED: Morphine 2 MG/ML VIAL SLOW IVP PRN (04:05)
[2022-03-30 04:14] VITALS: BMI 28.8
[2022-03-30] MEDS ORDERED: Ondansetron PF 4 MG/2 ML Vial IVP PRN (04:15)
[2022-03-30] MEDS ORDERED: Sodium Chloride 0.9% 1,000 ML IV SCH (04:15)
[2022-03-30] MEDS ORDERED: Ondansetron ODT 4 MG TAB SL PRN (04:15)
[2022-03-30] MEDS ORDERED: HYDROcodone/Acetaminophen 10/325 mg Tablet PO PRN (08:20)
[2022-03-30] MEDS ORDERED: Nitroglycerin 0.4 MG TAB (25 Tab Bottle) SL PRN (10:27)
[2022-03-30] MEDS ORDERED: oxyCODONE 5 MG TAB PO PRN (10:33)
[2022-03-30] MEDS ORDERED: Ondansetron ODT 8 MG TAB PO PRN (10:34)
[2022-03-30 12:22] VITALS: BP 151/98; TEMP 98
[2022-03-30] MEDS ORDERED: metFORMIN 500 MG TAB PO SCH (17:00)
[2022-03-30] MEDS ORDERED: Carvedilol 3.125 MG TAB PO SCH (17:00)
[2022-03-30] MEDS ORDERED: rOPINIRole HCl 2 MG TAB PO SCH (21:00)
[2022-03-30] MEDS ORDERED: Gabapentin 400 MG CAP PO SCH (21:00)
[2022-03-30] MEDS ORDERED: Atorvastatin Calcium 40 MG TAB PO SCH (21:00)
[2022-03-31] MEDS ORDERED: Lisinopril 5 MG TAB PO SCH (09:00)
[2022-03-31] MEDS ORDERED: Aspirin 81 mg Enteric Coated Tablet PO SCH (09:00)
[2022-03-31] MEDS ORDERED: Venlafaxine HCl XR 150 MG CAP PO SCH (09:00)
== END 2022-03-30 14:20 | disposition home or self-care (01) ==
LOC: ERS 02:03 → SURG B 03:19
PROVIDERS: ADMIT Orthopaedic Surgery; ATTEND Orthopaedic Surgery
DX: M77.8 Other enthesopathies, not elsewhere classified (principal); M25.551 Pain in right hip; D72.829 Elevated white blood cell count, unspecified; I25.10 Atherosclerotic heart disease of native coronary artery without angina pectoris; I11.0 Hypertensive heart disease with heart failure; I50.9 Heart failure, unspecified; I25.2 Old myocardial infarction; K21.9 Gastro-esophageal reflux disease without esophagitis; E78.5 Hyperlipidemia, unspecified; E78.00 Pure hypercholesterolemia, unspecified; G89.29 Other chronic pain; M54.9 Dorsalgia, unspecified; G47.33 Obstructive sleep apnea (adult) (pediatric); F12.11 Cannabis abuse, in remission; Z79.82 Long term (current) use of aspirin; Z79.84 Long term (current) use of oral hypoglycemic drugs; Z79.899 Other long term (current) drug therapy; Z88.8 Allergy status to other drugs, medicaments and biological substances; Z95.5 Presence of coronary angioplasty implant and graft; Z96.641 Presence of right artificial hip joint
CPT/HCPCS: 96374; G0378; J7050

== ENCOUNTER 2022-08-03 06:52 | Day surgery (SDC) | payer OTHER ==
[2022-08-01 12:31] VITALS: BMI 24.7
[2022-08-03] MEDS ORDERED: Fentanyl 100 MCG/2 ML VIAL ONE (08:54)
[2022-08-03] MEDS ORDERED: Lidocaine 1% MPF 2 ML VIAL ONE (09:01)
[2022-08-03] MEDS ORDERED: PROPOFOL 200 MG/20 ML VIAL ONE (09:01)
[2022-08-03] MEDS ORDERED: Naloxone HCl 0.4 mg/ml Vial ONE (09:01)
== END 2022-08-03 11:00 | disposition home or self-care (01) ==
LOC: SDC 06:52
PROVIDERS: ATTEND Internal Medicine Gastroenterology
PROC: 0DB48ZX Excision of Esophagogastric Junction, Via Natural or Artificial Opening Endoscopic, Diagnostic (ICD-10-PCS; principal; 2022-08-03)
PROC: 0DB78ZX Excision of Stomach, Pylorus, Via Natural or Artificial Opening Endoscopic, Diagnostic (ICD-10-PCS; 2022-08-03)
PROC: 0DB18ZX Excision of Upper Esophagus, Via Natural or Artificial Opening Endoscopic, Diagnostic (ICD-10-PCS; 2022-08-03)
PROC: 0DB28ZX Excision of Middle Esophagus, Via Natural or Artificial Opening Endoscopic, Diagnostic (ICD-10-PCS; 2022-08-03)
DX: K31.89 Other diseases of stomach and duodenum (principal); K22.70 Barrett's esophagus without dysplasia; K21.00 Gastro-esophageal reflux disease with esophagitis, without bleeding; D64.9 Anemia, unspecified; M19.90 Unspecified osteoarthritis, unspecified site; I25.10 Atherosclerotic heart disease of native coronary artery without angina pectoris; I11.0 Hypertensive heart disease with heart failure; I50.9 Heart failure, unspecified; I25.2 Old myocardial infarction; E78.00 Pure hypercholesterolemia, unspecified; R63.4 Abnormal weight loss; Z68.24 Body mass index [BMI] 24.0-24.9, adult; Z79.82 Long term (current) use of aspirin; Z79.84 Long term (current) use of oral hypoglycemic drugs; Z79.899 Other long term (current) drug therapy; Z88.5 Allergy status to narcotic agent; Z88.8 Allergy status to other drugs, medicaments and biological substances; Z95.1 Presence of aortocoronary bypass graft
CPT/HCPCS: 88305; 88342; J2310; J2704; J3010

== ENCOUNTER 2022-08-27 07:43 | Observation (INO) | payer OTHER ==
[2022-08-27 08:01] LABS: #Eosinphils 0.5 thou/uL (0.0-0.7); #Monocytes 0.9 thou/uL (0.11-0.59); #Neutrophils 8.9 thou/uL (1.40-6.50); %Basophils 0.2 % (0.0-1.0); %Eosinophils 3.8 % (0.0-10.0); %Lymphocytes 16.2 % (21.0-51.0); %Neutrophils 72.7 % (42.0-75.0); Hemoglobin 12.2 g/dL (14.0-18.0); Mean Corpuscular HGB CONC 32.1 g/dL (32.0-36.0); Mean Corpuscular Hemoglobin 28.8 pg (27.0-31.0); Mean Corpuscular Volume 89.8 fL (78.0-98.0); Mean Platelet Volume 7.2 fL (7.4-10.4); Platelet Count 330 thou/uL (130-400); Red Blood Cell (RBC) Count 4.22 mill/uL (4.70-6.10); White Blood Cell (WBC) Count 12.3 thou/uL (4.8-10.8)
[2022-08-27 08:13] LABS: Prothrombin Time 13.7 sec (12.0-14.7)
[2022-08-27 08:17] LABS: ALT (SGPT) 11 U/L (8-55); AST (SGOT) 16 U/L (5-34); Albumin 3.9 g/dL (3.5-5.0); Alkaline Phosphatase 56 U/L (40-110); Anion Gap 15 mmol/L (10-20); BUN (Urea Nitrogen) 22 mg/dL (8.4-25.7); Bilirubin, Total 0.4 mg/dL (0.2-1.2); CK (CPK) 87 U/L (30-200); Calc. Creatinine Clearance 0 mL/min (70-130); Calcium 8.8 mg/dL (7.8-10.44); Carbon Dioxide 22 mmol/L (22-29); Chloride 102 mmol/L (98-107); Estimated GFR 99; Globulin 3.3 g/dL (2.4-3.5); Glucose 141 mg/dL (70-105); Lipase 44 U/L (8-78); Potassium 4.2 mmol/L (3.5-5.1); Protein, Total 7.2 g/dL (6.0-8.3); Sodium 135 mmol/L (136-145)
[2022-08-27 08:22] LABS: Acetaminophen Less than 10.0 mcg/mL (10.0-30.0); Alcohol Less than 10 mg/dL (Less than 10); Salicylate Less than 8.0 mg/dL (15.0-30.0)
[2022-08-27] MEDS ORDERED: Naloxone HCl 2 mg/2 ml Syringe ONE (08:36)
[2022-08-27] MEDS ORDERED: Iopamidol-370 76% 500 ML 1 ML ONE (10:44)
[2022-08-27] MEDS ORDERED: Dextrose 50% Abboject 50 ML SYRINGE SLOW IVP PRN (11:04)
[2022-08-27] MEDS ORDERED: Dextrose 5% in Water 1,000 ML IV PRN (11:04)
[2022-08-27] MEDS ORDERED: Acetaminophen 325 MG TAB PO PRN (11:04)
[2022-08-27] MEDS ORDERED: HumaLOG 300 UNITS/3 ML VIAL SC PRN ×2 (11:04)
[2022-08-27] MEDS ORDERED: Naloxone HCl 0.4 mg/ml Vial IV PRN (11:46)
[2022-08-27] MEDS ORDERED: OxyCODONE IR 30 MG TAB PO PRN (11:47)
[2022-08-27 12:06] VITALS: BMI 24.5
[2022-08-27] MEDS ORDERED: Carvedilol 3.125 MG TAB PO SCH ×2 (17:00→18:00)
[2022-08-27] MEDS: metFORMIN 500 MG TAB PO SCH (17:42)
[2022-08-27 19:01] LABS: Amphetamine Not Detected (NotDetected); Barbiturates Screen Not Detected (NotDetected); Benzodiazepine Screen Not Detected (NotDetected); Cocaine Metabolite Screen Not Detected (NotDetected); Methadone Not Detected (NotDetected); Methamphetamine Not Detected (NotDetected); Opiate Screen Not Detected (NotDetected); Oxycodone Screen Detected (NotDetected); Phencyclidine (PCP) Not Detected (NotDetected); THC/Cannabinoid Screen Not Detected (NotDetected); Tricyclic Screen Not Detected (NotDetected)
[2022-08-27] MEDS ORDERED: rOPINIRole HCl 1 MG TAB PO SCH (21:00)
[2022-08-27] MEDS ORDERED: Enoxaparin Sodium 40 MG/0.4 ML SYRINGE SC SCH (21:00)
[2022-08-27] MEDS ORDERED: Atorvastatin Calcium 40 MG TAB PO SCH (21:00)
[2022-08-27] MEDS: Aspirin 81 mg Enteric Coated Tablet PO SCH (21:05)
[2022-08-27] MEDS: Gabapentin 300 MG CAP PO SCH (21:05)
[2022-08-27] MEDS ORDERED: Melatonin 3 MG TAB PO PRN (21:55)
[2022-08-27] MEDS: oxyCODONE 5 MG TAB PO PRN (22:50)
[2022-08-28 05:25] LABS: #Basophils 0.1 thou/uL (0.0-0.2); #Eosinphils 0.3 thou/uL (0.0-0.7); #Lymphocytes 2.4 thou/uL (1.20-3.40); #Neutrophils 5.8 thou/uL (1.40-6.50); %Basophils 0.7 % (0.0-1.0); %Eosinophils 2.7 % (0.0-10.0); %Lymphocytes 25.1 % (21.0-51.0); %Monocytes 10.4 % (0.0-10.0); %Neutrophils 61.1 % (42.0-75.0); Hemoglobin 11.9 g/dL (14.0-18.0); Mean Corpuscular HGB CONC 32.7 g/dL (32.0-36.0); Mean Corpuscular Hemoglobin 29.1 pg (27.0-31.0); Mean Corpuscular Volume 89.1 fL (78.0-98.0); Mean Platelet Volume 7.4 fL (7.4-10.4); Platelet Count 316 thou/uL (130-400); RBC Distribution Width 15.8 % (11.5-14.5); White Blood Cell (WBC) Count 9.6 thou/uL (4.8-10.8)
[2022-08-28 05:44] LABS: Anion Gap 10 mmol/L (10-20); BUN (Urea Nitrogen) 16 mg/dL (8.4-25.7); Calc. Creatinine Clearance 94 mL/min (70-130); Calcium 9.1 mg/dL (7.8-10.44); Carbon Dioxide 26 mmol/L (22-29); Estimated GFR 100; Glucose 97 mg/dL (70-105); Potassium 3.6 mmol/L (3.5-5.1); Sodium 138 mmol/L (136-145)
[2022-08-28 05:55] LABS: Chloride 106 mmol/L (98-107)
[2022-08-28] MEDS ORDERED: Carvedilol 3.125 MG TAB PO SCH (08:00)
[2022-08-28] MEDS: Gabapentin 300 MG CAP PO SCH (08:31)
[2022-08-28] MEDS: Aspirin 81 mg Enteric Coated Tablet PO SCH (08:33)
[2022-08-28] MEDS: metFORMIN 500 MG TAB PO SCH (08:34)
[2022-08-28] MEDS ORDERED: Venlafaxine HCl XR 150 MG CAP PO SCH (09:00)
[2022-08-28] MEDS ORDERED: Lisinopril 5 MG TAB PO SCH (09:00)
[2022-08-28] MEDS: oxyCODONE 5 MG TAB PO PRN (09:11)
[2022-08-28 12:05] VITALS: BP 119/79; TEMP 98.7
== END 2022-08-28 16:05 | disposition home or self-care (01) ==
LOC: ERS 07:43 → NEURO 11:25
PROVIDERS: ADMIT Emergency Medicine; ATTEND Emergency Medicine
DX: T40.2X1A Poisoning by other opioids, accidental (unintentional), initial encounter (principal); R53.1 Weakness; Y92.009 Unspecified place in unspecified non-institutional (private) residence as the place of occurrence of the external cause; Z20.822 Contact with and (suspected) exposure to COVID-19; I25.10 Atherosclerotic heart disease of native coronary artery without angina pectoris; I11.0 Hypertensive heart disease with heart failure; I50.20 Unspecified systolic (congestive) heart failure; E78.5 Hyperlipidemia, unspecified; G25.81 Restless legs syndrome; K21.9 Gastro-esophageal reflux disease without esophagitis; K22.70 Barrett's esophagus without dysplasia; I46.9 Cardiac arrest, cause unspecified; E11.9 Type 2 diabetes mellitus without complications; D64.9 Anemia, unspecified; I45.10 Unspecified right bundle-branch block; I45.81 Long QT syndrome; Z79.82 Long term (current) use of aspirin; Z79.84 Long term (current) use of oral hypoglycemic drugs; Z79.899 Other long term (current) drug therapy; Z88.8 Allergy status to other drugs, medicaments and biological substances; Z95.1 Presence of aortocoronary bypass graft
CPT/HCPCS: 70450; 70496; 70498; 70551; 71045; 80048; 80306; 80307; 82140; 82550; 82962 ×2; 83690; 83880; 84146; 84484; 85025; 85610; 85730; 93005; 93306; 95712; 95819; 95957; 96372; 97116; G0378 ×3; U0003; U0005; 36415; 36416; 80053; 84443; J1650; J2310; Q9967

== ENCOUNTER 2022-11-21 22:13 | Inpatient (IN) | payer OTHER ==
[2022-11-21] MEDS ORDERED: Nitroglycerin 2% Ointment 1 INCH/1 GM Packet ONE (23:36)
[2022-11-22] MEDS ORDERED: Morphine 2 MG/ML VIAL SLOW IVP SCH (01:00)
[2022-11-22] MEDS ORDERED: Morphine 4 MG/ML VIAL SLOW IVP SCH (01:00)
[2022-11-22] MEDS ORDERED: Morphine 4 MG/ML VIAL ONE (01:25)
[2022-11-22 03:07] LABS: Troponin I 0.011 ng/mL (< 0.028)
[2022-11-22] MEDS ORDERED: Ondansetron PF 4 MG/2 ML Vial IVP PRN (05:37)
[2022-11-22] MEDS ORDERED: Acetaminophen 650 MG Suppository PR PRN (05:37)
[2022-11-22] MEDS ORDERED: Ondansetron ODT 4 MG TAB PO PRN (05:37)
[2022-11-22] MEDS ORDERED: Acetaminophen 325 MG TAB PO PRN (05:37)
[2022-11-22] MEDS ORDERED: Nitroglycerin 0.4 MG TAB (25 Tab Bottle) SL PRN (05:38)
[2022-11-22 06:05] LABS: Troponin I 0.016 ng/mL (< 0.028)
[2022-11-22 06:26] LABS: ALT (SGPT) 11 U/L (8-55); AST (SGOT) 16 U/L (5-34); Albumin 3.3 g/dL (3.5-5.0); Alkaline Phosphatase 56 U/L (40-110); Anion Gap 13 mmol/L (10-20); BUN (Urea Nitrogen) 13 mg/dL (8.4-25.7); Bilirubin, Total 0.5 mg/dL (0.2-1.2); Calc. Creatinine Clearance 0 mL/min (70-130); Calcium 8.3 mg/dL (7.8-10.44); Carbon Dioxide 24 mmol/L (22-29); Chloride 102 mmol/L (98-107); Estimated GFR 101; Glucose 81 mg/dL (70-105); Potassium 3.4 mmol/L (3.5-5.1); Protein, Total 6.3 g/dL (6.0-8.3); Sodium 136 mmol/L (136-145)
[2022-11-22 06:36] LABS: #Eosinphils 0.3 thou/uL (0.0-0.7); #Lymphocytes 2.6 thou/uL (1.20-3.40); #Monocytes 0.8 thou/uL (0.11-0.59); #Neutrophils 4.7 thou/uL (1.40-6.50); %Basophils 0.4 % (0.0-1.0); %Eosinophils 4.1 % (0.0-10.0); %Lymphocytes 30.9 % (21.0-51.0); %Monocytes 9.2 % (0.0-10.0); %Neutrophils 55.4 % (42.0-75.0); Hemoglobin 10.6 g/dL (14.0-18.0); Mean Corpuscular HGB CONC 32.2 g/dL (32.0-36.0); Mean Corpuscular Hemoglobin 28.2 pg (27.0-31.0); Mean Corpuscular Volume 87.6 fl (78.0-98.0); Mean Platelet Volume 6.8 fL (7.4-10.4); Platelet Count 341 10x3/uL (130-400); RBC Distribution Width 14.2 % (11.5-14.5); Red Blood Cell (RBC) Count 3.76 mill/uL (4.70-6.10); White Blood Cell (WBC) Count 8.5 10x3/uL (4.8-10.8)
[2022-11-22] MEDS ORDERED: Aspirin Chewable 81 MG TAB ONE (08:29)
[2022-11-22] MEDS ORDERED: Enoxaparin Sodium 40 MG/0.4 ML SYRINGE ONE (08:29)
[2022-11-22] MEDS: Enoxaparin Sodium 40 MG/0.4 ML SYRINGE SC SCH (08:51)
[2022-11-22] MEDS ORDERED: Aspirin Chewable 81 MG TAB PO SCH (09:00)
[2022-11-22] MEDS ORDERED: oxyCODONE 5 MG TAB PO PRN (09:58)
[2022-11-22] MEDS ORDERED: Potassium Chloride 20 MEQ TAB PO SCH (10:00)
[2022-11-22] MEDS ORDERED: Venlafaxine HCl XR 150 MG CAP PO SCH (10:15)
[2022-11-22] MEDS ORDERED: Lisinopril 5 MG TAB PO SCH (10:30)
[2022-11-22] MEDS ORDERED: Lidocaine 2% Viscous Solution 10 ML, Aluminum & Magnesium Hydroxide 30 ML SSW SCH (10:30)
[2022-11-22] MEDS ORDERED: Potassium Chloride 20 MEQ TAB ONE (10:37)
[2022-11-22] MEDS ORDERED: Lisinopril 10 MG TAB ONE (10:37)
[2022-11-22] MEDS ORDERED: Lidocaine Viscous Sol 2% 15 ml UD Cup ONE (10:44)
[2022-11-22] MEDS ORDERED: Mag-Al 1200 mg/1200 mg/30 ML UDCUP ONE (10:44)
[2022-11-22 15:47] VITALS: BMI 26.2
[2022-11-22] MEDS: metFORMIN 500 MG TAB PO SCH (16:10)
[2022-11-22] MEDS: oxyCODONE 5 MG TAB PO PRN (20:53)
[2022-11-22] MEDS: Aspirin 81 mg Enteric Coated Tablet PO SCH (20:55)
[2022-11-22] MEDS: Gabapentin 400 MG CAP PO SCH (20:55)
[2022-11-22] MEDS ORDERED: Atorvastatin Calcium 40 MG TAB PO SCH (21:00)
[2022-11-22] MEDS ORDERED: rOPINIRole HCl 2 MG TAB PO SCH (21:00)
[2022-11-23] MEDS: oxyCODONE 5 MG TAB PO PRN ×2 (04:11→10:18)
[2022-11-23 05:47] LABS: Anion Gap 11 mmol/L (10-20); BUN (Urea Nitrogen) 13 mg/dL (8.4-25.7); Calc. Creatinine Clearance 108 mL/min (70-130); Calcium 8.5 mg/dL (7.8-10.44); Carbon Dioxide 26 mmol/L (22-29); Chloride 100 mmol/L (98-107); Estimated GFR 102; Glucose 82 mg/dL (70-105); Potassium 3.7 mmol/L (3.5-5.1); Sodium 133 mmol/L (136-145)
[2022-11-23] MEDS ORDERED: Lisinopril 5 MG TAB PO SCH ×2 (09:00)
[2022-11-23] MEDS ORDERED: Venlafaxine HCl XR 150 MG CAP PO SCH ×2 (09:00)
[2022-11-23] MEDS: Gabapentin 400 MG CAP PO SCH (10:16)
[2022-11-23] MEDS: metFORMIN 500 MG TAB PO SCH (10:16)
[2022-11-23] MEDS: Enoxaparin Sodium 40 MG/0.4 ML SYRINGE SC SCH (10:17)
[2022-11-23] MEDS: Aspirin 81 mg Enteric Coated Tablet PO SCH (10:18)
[2022-11-23] MEDS ORDERED: ADENOSINE 60 MG/20 ML VIAL ONE (12:09)
[2022-11-23 12:14] VITALS: TEMP 98.1
[2022-11-23 14:13] VITALS: BP 126/87
== END 2022-11-23 15:27 | disposition home or self-care (01) | DRG 313 ==
LOC: ERS 22:13 → INTOOBSV 23:39 → ERHOLD 23:39 → 2SW 11-22 14:06 → OBSVTOIN 11-23 14:25
PROVIDERS: ADMIT Family Medicine; ATTEND Family Medicine
DX: R07.89 Other chest pain (principal); I50.22 Chronic systolic (congestive) heart failure; I11.0 Hypertensive heart disease with heart failure; E78.5 Hyperlipidemia, unspecified; R73.03 Prediabetes; I25.10 Atherosclerotic heart disease of native coronary artery without angina pectoris; G25.81 Restless legs syndrome; K21.9 Gastro-esophageal reflux disease without esophagitis; I45.10 Unspecified right bundle-branch block; K21.00 Gastro-esophageal reflux disease with esophagitis, without bleeding; D50.9 Iron deficiency anemia, unspecified; Z96.642 Presence of left artificial hip joint; E87.6 Hypokalemia; Z20.822 Contact with and (suspected) exposure to COVID-19; Z88.8 Allergy status to other drugs, medicaments and biological substances; Z79.899 Other long term (current) drug therapy; Z79.84 Long term (current) use of oral hypoglycemic drugs; Z98.890 Other specified postprocedural states; Z79.82 Long term (current) use of aspirin; Z95.1 Presence of aortocoronary bypass graft
CPT/HCPCS: 36415; 78452; 80048; 80053; 84484; 85025; 93005; 93017; 96372; 96374; A9500; G0378; J0153; J1650; J2270; U0003; U0005

== ENCOUNTER 2023-07-05 13:37 | Outpatient (CLI) | payer MEDICARE | END 2023-07-05 13:38 | disposition home or self-care (01) | LOC: RAD 13:37 | PROVIDERS: ATTEND Physician Assistant Medical | DX: R06.02 Shortness of breath (principal); R11.10 Vomiting, unspecified; R10.13 Epigastric pain; K22.70 Barrett's esophagus without dysplasia | CPT/HCPCS: 71046 ==

== ENCOUNTER 2023-07-09 04:32 | Inpatient (IN) | payer MEDICARE ==
[2023-07-09] MEDS ORDERED: Furosemide 40 MG/4 ML VIAL ONE (04:58)
[2023-07-09] MEDS ORDERED: Ondansetron ODT 4 MG TAB PO PRN (06:15)
[2023-07-09] MEDS ORDERED: Ondansetron PF 4 MG/2 ML Vial IVP PRN (06:15)
[2023-07-09] MEDS ORDERED: Heparin 25,000 units/D5W 500 ML IVPB SCH (06:30)
[2023-07-09] MEDS ORDERED: Morphine 2 MG/ML VIAL ONE ×2 (06:37→10:40)
[2023-07-09 07:06] LABS: Hemoglobin A1c 5.4 % (4.0-6.0)
[2023-07-09 07:12] LABS: Cardiac Risk 4.9 (Less than 4.5)
[2023-07-09] MEDS ORDERED: metFORMIN 500 MG TAB PO SCH (08:00)
[2023-07-09] MEDS ORDERED: Lisinopril 10 MG TAB ONE (08:25)
[2023-07-09] MEDS ORDERED: Aspirin Chewable 81 MG TAB ONE (08:25)
[2023-07-09] MEDS ORDERED: Nitroglycerin 2% Ointment 1 INCH/1 GM Packet ONE (08:25)
[2023-07-09] MEDS ORDERED: Clopidogrel Bisulfate 75 MG TAB ONE (08:25)
[2023-07-09] MEDS: Clopidogrel Bisulfate 75 MG TAB PO SCH (08:40)
[2023-07-09] MEDS: Aspirin 81 mg Enteric Coated Tablet PO SCH (08:40)
[2023-07-09] MEDS: Lisinopril 5 MG TAB PO SCH (08:40)
[2023-07-09] MEDS: Nitroglycerin 2% Ointment 1 INCH/1 GM Packet TOP SCH (08:43)
[2023-07-09] MEDS ORDERED: Nitroglycerin 50 MG/250 ML BOT 250 ML IVPB SCH ×3 (08:45→22:00)
[2023-07-09 08:48] LABS: Troponin I 2.792 ng/mL (< 0.028)
[2023-07-09] MEDS ORDERED: dilTIAZem CD 180 MG CAP PO SCH (09:00)
[2023-07-09] MEDS ORDERED: Nitroglycerin 50 MG/250 ML BOT 250 ML ONE (09:22)
[2023-07-09] MEDS: Carvedilol 3.125 MG TAB PO SCH ×2 (10:15→16:42)
[2023-07-09] MEDS: Venlafaxine HCl XR 150 MG CAP PO SCH (10:17)
[2023-07-09] MEDS: Gabapentin 400 MG CAP PO SCH ×2 (10:18→20:42)
[2023-07-09] MEDS: Morphine 2 MG/ML VIAL SLOW IVP PRN ×3 (10:43→20:42)
[2023-07-09 12:22] LABS: Critical Call Chem Troponin I RESULT DECREASING; Troponin I 2.766 ng/mL (< 0.028)
[2023-07-09] MEDS ORDERED: Furosemide 40 MG/4 ML VIAL SLOW IVP SCH (14:45)
[2023-07-09] MEDS ORDERED: Spironolactone 25 MG TAB PO SCH (15:00)
[2023-07-09] MEDS: Heparin 10,000 UNITS/ 10 ML VIAL SLOW IVP SCH (15:27)
[2023-07-09] MEDS ORDERED: Insulin Regular 300 UNITS/3 ML VIAL SC PRN (16:01)
[2023-07-09] MEDS ORDERED: Dextrose 50% Abboject 50 ML SYRINGE IVP PRN (16:15)
[2023-07-09] MEDS ORDERED: Glucagon 1 MG/ML KIT IM PRN (16:15)
[2023-07-09] MEDS ORDERED: Dextrose 5% in Water 1,000 ML IV PRN (16:15)
[2023-07-09] MEDS ORDERED: Electrolyte Replacement Protocol 1 EACH FS SCH (16:15)
[2023-07-09 17:15] LABS: Magnesium 1.6 mg/dL (1.6-2.6)
[2023-07-09] MEDS: Atorvastatin Calcium 40 MG TAB PO SCH (20:43)
[2023-07-09] MEDS: Famotidine 20 MG TAB PO SCH (20:43)
[2023-07-09] MEDS ORDERED: Atorvastatin Calcium 40 MG TAB PO SCH (21:00)
[2023-07-09] MEDS: rOPINIRole HCl 1 MG TAB PO SCH (21:57)
[2023-07-10 03:48] LABS: #Basophils 0.1 thou/uL (0.0-0.2); #Eosinphils 0.2 thou/uL (0.0-0.7); #Monocytes 1.1 thou/uL (0.11-0.59); #Neutrophils 7.2 thou/uL (1.40-6.50); %Basophils 0.5 % (0.0-1.0); %Eosinophils 2.1 % (0.0-10.0); %Lymphocytes 14.4 % (21.0-51.0); %Monocytes 11.2 % (0.0-10.0); %Neutrophils 71.4 % (42.0-75.0); Hematocrit 31.7 % (42.0-52.0); Hemoglobin 10.1 g/dL (14.0-18.0); Mean Corpuscular HGB CONC 31.9 g/dL (32.0-36.0); Mean Corpuscular Hemoglobin 27.7 pg (27.0-31.0); Mean Corpuscular Volume 86.8 fl (78.0-98.0); Platelet Count 440 10x3/uL (130-400); Red Blood Cell (RBC) Count 3.65 mill/uL (4.70-6.10); White Blood Cell (WBC) Count 10.1 10x3/uL (4.8-10.8)
[2023-07-10] MEDS: Heparin 10,000 UNITS/ 10 ML VIAL SLOW IVP SCH (04:08)
[2023-07-10 04:15] LABS: ALT (SGPT) 18 U/L (8-55); AST (SGOT) 27 U/L (5-34); Albumin 3.2 g/dL (3.5-5.0); Alkaline Phosphatase 55 U/L (40-110); Anion Gap 21 mmol/L (10-20); BUN (Urea Nitrogen) 19 mg/dL (8.4-25.7); Bilirubin, Total 0.5 mg/dL (0.2-1.2); Calc. Creatinine Clearance 92 mL/min (70-130); Calcium 8.3 mg/dL (7.8-10.44); Carbon Dioxide 23 mmol/L (22-29); Chloride 100 mmol/L (98-107); Estimated GFR 81; Globulin 3.6 g/dL (2.4-3.5); Glucose 86 mg/dL (70-105); Magnesium 1.7 mg/dL (1.6-2.6); Potassium 3.9 mmol/L (3.5-5.1); Protein, Total 6.8 g/dL (6.0-8.3); Sodium 140 mmol/L (136-145)
[2023-07-10 04:21] LABS: Critical Call Chem Troponin I RESULT DECREASING; Troponin I 2.482 ng/mL (< 0.028)
[2023-07-10] MEDS: Nitroglycerin 2% Ointment 1 INCH/1 GM Packet TOP SCH (06:44)
[2023-07-10] MEDS ORDERED: Magnesium 2 GM/50 ML(in water) 2 GM in Premix Bag 1 BAG IVPB SCH (08:00)
[2023-07-10] MEDS: Morphine 2 MG/ML VIAL SLOW IVP PRN ×3 (08:06→20:02)
[2023-07-10] MEDS ORDERED: Polyethylene Glycol 3350 17 GM Packet PO PRN (08:51)
[2023-07-10] MEDS ORDERED: Empagliflozin 10 MG TAB PO SCH (09:00)
[2023-07-10] MEDS: Venlafaxine HCl XR 150 MG CAP PO SCH (09:45)
[2023-07-10] MEDS: Carvedilol 3.125 MG TAB PO SCH ×2 (09:45→17:00)
[2023-07-10] MEDS: Clopidogrel Bisulfate 75 MG TAB PO SCH (09:45)
[2023-07-10] MEDS: Gabapentin 400 MG CAP PO SCH ×2 (09:45→20:43)
[2023-07-10] MEDS: Aspirin 81 mg Enteric Coated Tablet PO SCH (09:45)
[2023-07-10] MEDS: Spironolactone 25 MG TAB PO SCH (09:46)
[2023-07-10] MEDS: Lisinopril 5 MG TAB PO SCH (09:48)
[2023-07-10] MEDS: Senokot 8.6 MG TAB PO SCH ×2 (09:54→20:45)
[2023-07-10 13:24] LABS: Troponin I 2.193 ng/mL (< 0.028)
[2023-07-10] MEDS ORDERED: Communication Order-Pharmacy FS SCH (17:45)
[2023-07-10] MEDS: Atorvastatin Calcium 40 MG TAB PO SCH (20:44)
[2023-07-10] MEDS: rOPINIRole HCl 1 MG TAB PO SCH (20:44)
[2023-07-10] MEDS: Famotidine 20 MG TAB PO SCH (20:45)
[2023-07-11] MEDS: Morphine 2 MG/ML VIAL SLOW IVP PRN ×5 (03:41→23:48)
[2023-07-11] MEDS ORDERED: fentaNYL 50 mcg/mL 1 mL Vial ONE (06:14)
[2023-07-11] MEDS ORDERED: Midazolam HCl 2 mg/2 ml Vial ONE (06:15)
[2023-07-11] MEDS ORDERED: Nitroglycerin 50 MG/250 ML BOT 0 ML ONE (06:15)
[2023-07-11] MEDS ORDERED: Heparin 10,000 UNITS/ 10 ML VIAL ONE (06:15)
[2023-07-11] MEDS ORDERED: Lidocaine 1% (PF) 30 ML VIAL ONE (06:15)
[2023-07-11] MEDS ORDERED: Acetaminophen/Codeine 30-300mg Tablet PO PRN ×2 (07:50)
[2023-07-11] MEDS ORDERED: Sodium Chloride 0.9% 200 ML IV PRN (07:50)
[2023-07-11] MEDS: Gabapentin 400 MG CAP PO SCH ×2 (08:52→20:15)
[2023-07-11] MEDS: Carvedilol 3.125 MG TAB PO SCH ×2 (08:53→15:53)
[2023-07-11] MEDS: Clopidogrel Bisulfate 75 MG TAB PO SCH (08:53)
[2023-07-11] MEDS: Venlafaxine HCl XR 150 MG CAP PO SCH (08:53)
[2023-07-11] MEDS: Lisinopril 5 MG TAB PO SCH (08:53)
[2023-07-11] MEDS: Senokot 8.6 MG TAB PO SCH ×3 (08:53→20:20)
[2023-07-11] MEDS: Spironolactone 25 MG TAB PO SCH (08:53)
[2023-07-11] MEDS: Aspirin 81 mg Enteric Coated Tablet PO SCH (08:54)
[2023-07-11] MEDS ORDERED: Iopamidol 370 76% 100 ML VIAL ONE (13:51)
[2023-07-11] MEDS: oxyCODONE 5 MG TAB PO PRN (20:14)
[2023-07-11] MEDS: rOPINIRole HCl 1 MG TAB PO SCH (20:14)
[2023-07-11] MEDS: Famotidine 20 MG TAB PO SCH (20:16)
[2023-07-11] MEDS: Atorvastatin Calcium 40 MG TAB PO SCH (20:16)
[2023-07-12] MEDS: oxyCODONE 5 MG TAB PO PRN ×2 (02:41→18:51)
[2023-07-12 04:53] LABS: Hematocrit 35.2 % (42.0-52.0); Hemoglobin 10.9 g/dL (14.0-18.0); Mean Corpuscular Hemoglobin 27.5 pg (27.0-31.0); Mean Corpuscular Volume 88.7 fl (78.0-98.0); Mean Platelet Volume 8.8 fL (7.4-10.4); Platelet Count 464 10x3/uL (130-400); RBC Distribution Width 16.1 % (11.5-14.5); Red Blood Cell (RBC) Count 3.97 mill/uL (4.70-6.10)
[2023-07-12 05:15] LABS: Anion Gap 13 mmol/L (10-20); BUN (Urea Nitrogen) 18 mg/dL (8.4-25.7); Calc. Creatinine Clearance 99 mL/min (70-130); Calcium 8.6 mg/dL (7.8-10.44); Carbon Dioxide 22 mmol/L (22-29); Chloride 106 mmol/L (98-107); Estimated GFR 96; Glucose 96 mg/dL (70-105); Magnesium 1.9 mg/dL (1.6-2.6); Potassium 3.9 mmol/L (3.5-5.1); Sodium 137 mmol/L (136-145)
[2023-07-12] MEDS ORDERED: Magnesium 2 GM/50 ML(in water) 2 GM in Premix Bag 1 BAG IVPB SCH (08:00)
[2023-07-12] MEDS ORDERED: Iopamidol 370 76% 100 ML VIAL ONE (09:30)
[2023-07-12] MEDS: Gabapentin 400 MG CAP PO SCH ×2 (09:34→21:10)
[2023-07-12] MEDS: Senokot 8.6 MG TAB PO SCH ×2 (09:35→21:12)
[2023-07-12] MEDS: Venlafaxine HCl XR 150 MG CAP PO SCH (09:35)
[2023-07-12] MEDS: Clopidogrel Bisulfate 75 MG TAB PO SCH (09:35)
[2023-07-12] MEDS: Spironolactone 25 MG TAB PO SCH (09:36)
[2023-07-12] MEDS: Lisinopril 5 MG TAB PO SCH (09:36)
[2023-07-12] MEDS: Aspirin 81 mg Enteric Coated Tablet PO SCH (09:36)
[2023-07-12] MEDS: Carvedilol 3.125 MG TAB PO SCH ×2 (09:36→18:43)
[2023-07-12] MEDS: Nitroglycerin 0.4 MG TAB (25 Tab Bottle) SL PRN (09:38)
[2023-07-12] MEDS: Morphine 2 MG/ML VIAL SLOW IVP PRN ×3 (09:41→21:14)
[2023-07-12] MEDS ORDERED: Furosemide 40 MG TAB PO SCH (09:45)
[2023-07-12] MEDS ORDERED: Communication Order-Pharmacy FS SCH (10:45)
[2023-07-12] MEDS ORDERED: Heparin 10,000 UNITS/ 10 ML VIAL ONE (11:53)
[2023-07-12] MEDS ORDERED: Nitroglycerin 50 MG/250 ML BOT 0 ML ONE (11:53)
[2023-07-12] MEDS ORDERED: Adenosine 6 MG/2 ML VIAL ONE (11:53)
[2023-07-12] MEDS ORDERED: Lidocaine 1% (PF) 30 ML VIAL ONE (11:53)
[2023-07-12] MEDS ORDERED: Atropine Sulfate 1 mg/10 ml Syringe ONE (11:54)
[2023-07-12] MEDS ORDERED: Midazolam HCl 2 mg/2 ml Vial ONE (12:30)
[2023-07-12] MEDS ORDERED: fentaNYL 50 mcg/mL 1 mL Vial ONE (12:30)
[2023-07-12] MEDS: rOPINIRole HCl 1 MG TAB PO SCH (21:11)
[2023-07-12] MEDS: Famotidine 20 MG TAB PO SCH (21:12)
[2023-07-12] MEDS: Atorvastatin Calcium 40 MG TAB PO SCH (21:12)
[2023-07-13] MEDS: Morphine 2 MG/ML VIAL SLOW IVP PRN ×2 (03:35→08:08)
[2023-07-13] MEDS: Nitroglycerin 0.4 MG TAB (25 Tab Bottle) SL PRN ×4 (04:02→21:41)
[2023-07-13 06:16] LABS: #Eosinphils 0.3 thou/uL (0.0-0.7); #Monocytes 0.7 thou/uL (0.11-0.59); #Neutrophils 5.8 thou/uL (1.40-6.50); %Basophils 0.5 % (0.0-1.0); %Eosinophils 3.1 % (0.0-10.0); %Lymphocytes 18.1 % (21.0-51.0); %Monocytes 8.4 % (0.0-10.0); %Neutrophils 69.3 % (42.0-75.0); Hemoglobin 10.9 g/dL (14.0-18.0); Mean Corpuscular HGB CONC 30.3 g/dL (32.0-36.0); Mean Corpuscular Hemoglobin 27.3 pg (27.0-31.0); Mean Platelet Volume 9.1 fL (7.4-10.4); Platelet Count 439 10x3/uL (130-400); RBC Distribution Width 16.4 % (11.5-14.5); White Blood Cell (WBC) Count 8.4 10x3/uL (4.8-10.8)
[2023-07-13 06:46] LABS: ALT (SGPT) 16 U/L (8-55); AST (SGOT) 24 U/L (5-34); Albumin 3.4 g/dL (3.5-5.0); Alkaline Phosphatase 55 U/L (40-110); Anion Gap 12 mmol/L (10-20); BUN (Urea Nitrogen) 15 mg/dL (8.4-25.7); Bilirubin, Total 0.6 mg/dL (0.2-1.2); Calc. Creatinine Clearance 94 mL/min (70-130); Calcium 8.8 mg/dL (7.8-10.44); Carbon Dioxide 22 mmol/L (22-29); Chloride 106 mmol/L (98-107); Estimated GFR 90; Globulin 3.7 g/dL (2.4-3.5); Glucose 83 mg/dL (70-105); Potassium 3.9 mmol/L (3.5-5.1); Protein, Total 7.1 g/dL (6.0-8.3); Sodium 136 mmol/L (136-145)
[2023-07-13] MEDS: Venlafaxine HCl XR 150 MG CAP PO SCH (08:11)
[2023-07-13] MEDS: Aspirin 81 mg Enteric Coated Tablet PO SCH (08:11)
[2023-07-13] MEDS: Gabapentin 400 MG CAP PO SCH ×2 (08:11→21:30)
[2023-07-13] MEDS: Spironolactone 25 MG TAB PO SCH (08:12)
[2023-07-13] MEDS: Carvedilol 3.125 MG TAB PO SCH ×2 (08:13→17:49)
[2023-07-13] MEDS: Senokot 8.6 MG TAB PO SCH ×2 (08:13→21:31)
[2023-07-13] MEDS: Clopidogrel Bisulfate 75 MG TAB PO SCH (08:13)
[2023-07-13] MEDS: Acetaminophen 325 MG TAB PO SCH ×3 (13:32→23:14)
[2023-07-13] MEDS: oxyCODONE 5 MG TAB PO PRN ×3 (13:33→23:14)
[2023-07-13] MEDS: Atorvastatin Calcium 40 MG TAB PO SCH (21:30)
[2023-07-13] MEDS: Sacubitril 24MG/Valsartan 26 MG TAB PO SCH (21:30)
[2023-07-13] MEDS: Famotidine 20 MG TAB PO SCH (21:31)
[2023-07-13] MEDS: rOPINIRole HCl 1 MG TAB PO SCH (21:35)
[2023-07-13 22:47] LABS: Troponin I 1.574 ng/mL (< 0.028)
[2023-07-14 05:15] LABS: Hematocrit 36.8 % (42.0-52.0); Hemoglobin 11.7 g/dL (14.0-18.0); Mean Corpuscular HGB CONC 31.8 g/dL (32.0-36.0); Mean Corpuscular Hemoglobin 27.7 pg (27.0-31.0); Mean Platelet Volume 9.2 fL (7.4-10.4); Platelet Count 427 10x3/uL (130-400); RBC Distribution Width 16.1 % (11.5-14.5); Red Blood Cell (RBC) Count 4.23 mill/uL (4.70-6.10); White Blood Cell (WBC) Count 6.5 10x3/uL (4.8-10.8)
[2023-07-14] MEDS: Acetaminophen 325 MG TAB PO SCH ×3 (05:39→17:19)
[2023-07-14 05:47] LABS: Anion Gap 13 mmol/L (10-20); BUN (Urea Nitrogen) 16 mg/dL (8.4-25.7); Calc. Creatinine Clearance 102 mL/min (70-130); Calcium 8.7 mg/dL (7.8-10.44); Carbon Dioxide 18 mmol/L (22-29); Chloride 107 mmol/L (98-107); Estimated GFR 98; Glucose 113 mg/dL (70-105); Magnesium 1.9 mg/dL (1.6-2.6); Potassium 3.7 mmol/L (3.5-5.1); Sodium 134 mmol/L (136-145)
[2023-07-14] MEDS ORDERED: Magnesium 2 GM/50 ML(in water) 2 GM in Premix Bag 1 BAG IVPB SCH (08:00)
[2023-07-14] MEDS: Gabapentin 400 MG CAP PO SCH ×2 (09:41→20:15)
[2023-07-14] MEDS: Clopidogrel Bisulfate 75 MG TAB PO SCH (09:41)
[2023-07-14] MEDS: oxyCODONE 5 MG TAB PO PRN ×3 (09:42→20:15)
[2023-07-14] MEDS: Venlafaxine HCl XR 150 MG CAP PO SCH (09:42)
[2023-07-14] MEDS: Empagliflozin 10 MG TAB PO SCH (09:43)
[2023-07-14] MEDS: Spironolactone 25 MG TAB PO SCH (09:43)
[2023-07-14] MEDS: Sacubitril 24MG/Valsartan 26 MG TAB PO SCH ×2 (09:43→20:15)
[2023-07-14] MEDS: Carvedilol 3.125 MG TAB PO SCH ×2 (09:43→17:19)
[2023-07-14] MEDS: Senokot 8.6 MG TAB PO SCH ×2 (09:43→20:16)
[2023-07-14] MEDS: Aspirin 81 mg Enteric Coated Tablet PO SCH (09:43)
[2023-07-14] MEDS: Famotidine 20 MG TAB PO SCH (15:15)
[2023-07-14] MEDS: rOPINIRole HCl 1 MG TAB PO SCH (20:16)
[2023-07-14] MEDS: Atorvastatin Calcium 40 MG TAB PO SCH (20:16)
[2023-07-14] MEDS ORDERED: Lidocaine 4% Patch TD PRN (21:35)
[2023-07-14] MEDS: Acetaminophen 500 MG TAB PO PRN (23:43)
[2023-07-15 04:44] LABS: Hematocrit 42.5 % (42.0-52.0); Hemoglobin 13.2 g/dL (14.0-18.0); Mean Corpuscular HGB CONC 31.1 g/dL (32.0-36.0); Mean Corpuscular Hemoglobin 27.7 pg (27.0-31.0); Mean Corpuscular Volume 89.1 fl (78.0-98.0); Mean Platelet Volume 9.1 fL (7.4-10.4); Platelet Count 504 10x3/uL (130-400); RBC Distribution Width 16.1 % (11.5-14.5); Red Blood Cell (RBC) Count 4.77 mill/uL (4.70-6.10); White Blood Cell (WBC) Count 7.5 10x3/uL (4.8-10.8)
[2023-07-15 05:09] LABS: Anion Gap 15 mmol/L (10-20); BUN (Urea Nitrogen) 19 mg/dL (8.4-25.7); Calc. Creatinine Clearance 85 mL/min (70-130); Carbon Dioxide 19 mmol/L (22-29); Chloride 107 mmol/L (98-107); Estimated GFR 79; Glucose 123 mg/dL (70-105); Magnesium 2.2 mg/dL (1.6-2.6); Sodium 137 mmol/L (136-145)
[2023-07-15] MEDS: Acetaminophen 500 MG TAB PO PRN (05:31)
[2023-07-15] MEDS: Spironolactone 25 MG TAB PO SCH (08:20)
[2023-07-15] MEDS: Gabapentin 400 MG CAP PO SCH (08:20)
[2023-07-15] MEDS: Venlafaxine HCl XR 150 MG CAP PO SCH (08:20)
[2023-07-15] MEDS: Senokot 8.6 MG TAB PO SCH (08:21)
[2023-07-15] MEDS: Sacubitril 24MG/Valsartan 26 MG TAB PO SCH (08:21)
[2023-07-15] MEDS: Aspirin 81 mg Enteric Coated Tablet PO SCH (08:21)
[2023-07-15] MEDS: Carvedilol 3.125 MG TAB PO SCH (08:21)
[2023-07-15] MEDS: Empagliflozin 10 MG TAB PO SCH (08:21)
[2023-07-15] MEDS: Clopidogrel Bisulfate 75 MG TAB PO SCH (08:21)
[2023-07-15] MEDS ORDERED: Transdermal Patch Removal TOP SCH (09:00)
[2023-07-15] MEDS ORDERED: Diclofenac 1% 100 GM GEL TP SCH (09:00)
[2023-07-15 11:46] VITALS: TEMP 97.8
[2023-07-15 12:17] VITALS: BP 92/64
== END 2023-07-15 13:45 | disposition home or self-care (01) | DRG 246 ==
LOC: ERS 04:32 → ERHOLD 05:44 → CCU 13:06 → 2SW 07-11 20:47
PROVIDERS: ADMIT Student in an Organized Health Care Education/Training Program; ATTEND Student in an Organized Health Care Education/Training Program
PROC: 4A023N7 Measurement of Cardiac Sampling and Pressure, Left Heart, Percutaneous Approach (ICD-10-PCS; 2023-07-11)
PROC: B2151ZZ Fluoroscopy of Left Heart using Low Osmolar Contrast (ICD-10-PCS; 2023-07-11)
PROC: B2111ZZ Fluoroscopy of Multiple Coronary Arteries using Low Osmolar Contrast (ICD-10-PCS; 2023-07-11)
PROC: B2181ZZ Fluoroscopy of Left Internal Mammary Bypass Graft using Low Osmolar Contrast (ICD-10-PCS; 2023-07-11)
PROC: B5181ZZ Fluoroscopy of Superior Vena Cava using Low Osmolar Contrast (ICD-10-PCS; 2023-07-11)
PROC: 027034Z Dilation of Coronary Artery, One Artery with Drug-eluting Intraluminal Device, Percutaneous Approach (ICD-10-PCS; principal; 2023-07-12)
DX: I11.0 Hypertensive heart disease with heart failure (principal); I21.A1 Myocardial infarction type 2; I50.23 Acute on chronic systolic (congestive) heart failure; D64.9 Anemia, unspecified; K22.70 Barrett's esophagus without dysplasia; K21.9 Gastro-esophageal reflux disease without esophagitis; I25.10 Atherosclerotic heart disease of native coronary artery without angina pectoris; Z95.1 Presence of aortocoronary bypass graft; Z96.641 Presence of right artificial hip joint; Z98.890 Other specified postprocedural states; Z79.82 Long term (current) use of aspirin; Z79.84 Long term (current) use of oral hypoglycemic drugs; Z79.899 Other long term (current) drug therapy; I25.2 Old myocardial infarction; E78.00 Pure hypercholesterolemia, unspecified; G89.29 Other chronic pain; M54.9 Dorsalgia, unspecified; G47.33 Obstructive sleep apnea (adult) (pediatric); F41.9 Anxiety disorder, unspecified; F32.A Depression, unspecified; Z88.8 Allergy status to other drugs, medicaments and biological substances; I25.5 Ischemic cardiomyopathy; E66.9 Obesity, unspecified; Z68.29 Body mass index [BMI] 29.0-29.9, adult; E83.42 Hypomagnesemia; E11.9 Type 2 diabetes mellitus without complications; G25.81 Restless legs syndrome; R19.7 Diarrhea, unspecified; F12.11 Cannabis abuse, in remission
CPT/HCPCS: 36415; 36416; 71046; 76705; 80048; 80053; 80061; 83036; 83735; 83880; 84443; 84484; 85025; 85027; 85347; 85730; 92928; 93005; 93010; 93306; 93459; 93798; 94760; 96365; 96366; 96375; 97139; 99152; 99153; C1760; C1769; C1874; C1887; C9600; J0153; J0461; J1644; J1940; J2001; J2250; J2272; J3010; J3475; Q9967

== ENCOUNTER 2023-08-18 00:27 | Observation (INO) | payer MEDICARE ==
[2023-08-18 04:01] VITALS: BMI 29.1
[2023-08-18 04:41] LABS: SARS-CoV-2 NAA Rapid Test Not Detected (NotDetected)
[2023-08-18] MEDS ORDERED: Ondansetron ODT 4 MG TAB PO PRN ×2 (04:56→05:20)
[2023-08-18] MEDS ORDERED: Senokot S 8.6-50 MG TAB PO PRN (04:56)
[2023-08-18] MEDS ORDERED: Acetaminophen 325 MG TAB PO PRN (04:56)
[2023-08-18] MEDS ORDERED: Nitroglycerin 0.4 MG TAB (25 Tab Bottle) SL SCH (05:15)
[2023-08-18] MEDS ORDERED: Furosemide 20 MG/2 ML VIAL SLOW IVP SCH (06:00)
[2023-08-18 06:37] LABS: Troponin I 0.138 ng/mL (< 0.028)
[2023-08-18] MEDS: Nitroglycerin 0.1mg/Hour PATCH TD SCH (06:39)
[2023-08-18] MEDS ORDERED: Nitroglycerin 0.1mg/Hour PATCH TD SCH (09:00)
[2023-08-18] MEDS: metFORMIN 500 MG TAB PO SCH ×2 (11:07→18:07)
[2023-08-18] MEDS: Amlodipine 5 MG TAB PO SCH (11:07)
[2023-08-18] MEDS: Carvedilol 25 MG TAB PO SCH ×2 (11:07→18:07)
[2023-08-18] MEDS: Icosapent Ethyl 1 GM CAPSULE PO SCH ×2 (11:07→16:42)
[2023-08-18] MEDS: Aripiprazole 10 MG TAB PO SCH (11:08)
[2023-08-18] MEDS: Empagliflozin 10 MG TAB PO SCH (11:08)
[2023-08-18] MEDS: Aspirin 81 mg Enteric Coated Tablet PO SCH (11:08)
[2023-08-18] MEDS: Lisinopril 10 MG TAB PO SCH (11:09)
[2023-08-18] MEDS: Gabapentin 400 MG CAP PO SCH ×2 (11:09→20:40)
[2023-08-18] MEDS: Spironolactone 25 MG TAB PO SCH (11:10)
[2023-08-18] MEDS: Ranolazine 500 MG ER.TAB PO SCH ×2 (11:10→20:40)
[2023-08-18] MEDS: Venlafaxine HCl XR 150 MG CAP PO SCH (11:11)
[2023-08-18 11:19] LABS: Troponin I 0.151 ng/mL (< 0.028)
[2023-08-18] MEDS ORDERED: OxyCODONE IR 30 MG TAB PO PRN (13:08)
[2023-08-18] MEDS ORDERED: Clopidogrel Bisulfate 300 MG TAB PO SCH (13:30)
[2023-08-18 14:30] LABS: Troponin I 0.152 ng/mL (< 0.028)
[2023-08-18] MEDS: Furosemide 20 MG/2 ML VIAL SLOW IVP SCH (14:46)
[2023-08-18] MEDS: oxyCODONE 5 MG TAB PO PRN ×2 (16:43→23:14)
[2023-08-18] MEDS ORDERED: Atorvastatin Calcium 40 MG TAB PO SCH (21:00)
[2023-08-18] MEDS ORDERED: rOPINIRole HCl 2 MG TAB PO SCH (21:00)
[2023-08-18] MEDS ORDERED: Famotidine 20 MG TAB PO SCH (21:00)
[2023-08-19] MEDS ORDERED: cefTRIAXone\\ROCEPHIN 1 GM in Sodium Chloride 0.9% 100 ML IVPB SCH (02:00)
[2023-08-19 05:37] LABS: #Eosinphils 0.3 thou/uL (0.0-0.7); #Monocytes 0.6 thou/uL (0.11-0.59); #Neutrophils 4.4 thou/uL (1.40-6.50); %Basophils 0.3 % (0.0-1.0); %Eosinophils 4.9 % (0.0-10.0); %Lymphocytes 9.5 % (21.0-51.0); %Monocytes 9.7 % (0.0-10.0); %Neutrophils 74.9 % (42.0-75.0); Hematocrit 30.5 % (42.0-52.0); Hemoglobin 9.5 g/dL (14.0-18.0); Mean Corpuscular HGB CONC 31.1 g/dL (32.0-36.0); Mean Corpuscular Hemoglobin 27.5 pg (27.0-31.0); Mean Corpuscular Volume 88.4 fl (78.0-98.0); Mean Platelet Volume 8.8 fL (7.4-10.4); Platelet Count 346 10x3/uL (130-400); RBC Distribution Width 16.7 % (11.5-14.5); Red Blood Cell (RBC) Count 3.45 mill/uL (4.70-6.10); White Blood Cell (WBC) Count 5.9 10x3/uL (4.8-10.8)
[2023-08-19 06:06] LABS: ALT (SGPT) 12 U/L (8-55); AST (SGOT) 20 U/L (5-34); Albumin 3.2 g/dL (3.4-4.8); Alkaline Phosphatase 43 U/L (40-110); Anion Gap 14 mmol/L (10-20); BUN (Urea Nitrogen) 19 mg/dL (8.4-25.7); Bilirubin, Total 0.2 mg/dL (0.2-1.2); Calc. Creatinine Clearance 94 mL/min (70-130); Calcium 8.5 mg/dL (7.8-10.44); Carbon Dioxide 24 mmol/L (23-31); Chloride 101 mmol/L (98-107); Estimated GFR 86; Globulin 3.1 g/dL (2.4-3.5); Glucose 82 mg/dL (80-115); Potassium 3.7 mmol/L (3.5-5.1); Protein, Total 6.3 g/dL (5.8-8.1); Sodium 135 mmol/L (136-145)
[2023-08-19] MEDS: Furosemide 20 MG/2 ML VIAL SLOW IVP SCH (06:16)
[2023-08-19] MEDS: Nitroglycerin 0.1mg/Hour PATCH TD SCH (06:16)
[2023-08-19] MEDS ORDERED: Potassium Chloride 20 MEQ TAB PO SCH (08:00)
[2023-08-19] MEDS: Icosapent Ethyl 1 GM CAPSULE PO SCH ×2 (08:51→16:51)
[2023-08-19] MEDS: Carvedilol 25 MG TAB PO SCH ×2 (08:51→16:51)
[2023-08-19] MEDS: metFORMIN 500 MG TAB PO SCH ×2 (08:52→16:51)
[2023-08-19] MEDS: Amlodipine 5 MG TAB PO SCH (08:53)
[2023-08-19] MEDS: Aspirin 81 mg Enteric Coated Tablet PO SCH (08:53)
[2023-08-19] MEDS: Aripiprazole 10 MG TAB PO SCH (08:53)
[2023-08-19] MEDS: Empagliflozin 10 MG TAB PO SCH (08:53)
[2023-08-19] MEDS: Venlafaxine HCl XR 150 MG CAP PO SCH (08:54)
[2023-08-19] MEDS: Lisinopril 10 MG TAB PO SCH (08:54)
[2023-08-19] MEDS: Spironolactone 25 MG TAB PO SCH (08:54)
[2023-08-19] MEDS: Gabapentin 400 MG CAP PO SCH (08:54)
[2023-08-19] MEDS: Ranolazine 500 MG ER.TAB PO SCH (08:54)
[2023-08-19] MEDS: oxyCODONE 5 MG TAB PO PRN ×2 (08:55→15:38)
[2023-08-19] MEDS ORDERED: Clopidogrel Bisulfate 75 MG TAB PO SCH (09:00)
[2023-08-19 15:14] VITALS: BP 122/67; TEMP 98.5
[2023-08-20] MEDS ORDERED: Furosemide 20 MG TAB PO SCH (09:00)
== END 2023-08-19 17:36 | disposition home or self-care (01) ==
LOC: 2SW 00:27 → INTOOBSV 05:05 → OBSVTOIN 05:05
PROVIDERS: ADMIT Family Medicine; ATTEND Family Medicine
DX: I11.0 Hypertensive heart disease with heart failure (principal); I50.23 Acute on chronic systolic (congestive) heart failure; I25.5 Ischemic cardiomyopathy; I25.10 Atherosclerotic heart disease of native coronary artery without angina pectoris; K21.9 Gastro-esophageal reflux disease without esophagitis; D64.9 Anemia, unspecified; K22.70 Barrett's esophagus without dysplasia; N39.0 Urinary tract infection, site not specified; E78.5 Hyperlipidemia, unspecified; G25.81 Restless legs syndrome; Z95.1 Presence of aortocoronary bypass graft; Z79.899 Other long term (current) drug therapy; Z79.84 Long term (current) use of oral hypoglycemic drugs; Z79.02 Long term (current) use of antithrombotics/antiplatelets; Z79.82 Long term (current) use of aspirin; Z88.8 Allergy status to other drugs, medicaments and biological substances; Z88.4 Allergy status to anesthetic agent
CPT/HCPCS: 80053; 83735; 84484 ×2; 85025; 87077; 87086; 96365; 96372; 96375; 96376; 97116; G0378 ×2; U0002; 36415; 87186; J0696; J1650; J1940; J3490

== ENCOUNTER 2023-08-20 22:32 | Observation (INO) | payer MEDICARE ==
[2023-08-20 23:11] LABS: #Eosinphils 0.2 thou/uL (0.0-0.7); #Monocytes 0.7 thou/uL (0.11-0.59); #Neutrophils 3.4 thou/uL (1.40-6.50); %Basophils 0.7 % (0.0-1.0); %Eosinophils 4.3 % (0.0-10.0); %Lymphocytes 21.9 % (21.0-51.0); %Monocytes 12.4 % (0.0-10.0); Hematocrit 31.1 % (42.0-52.0); Hemoglobin 9.8 g/dL (14.0-18.0); Mean Corpuscular HGB CONC 31.5 g/dL (32.0-36.0); Mean Corpuscular Hemoglobin 27.7 pg (27.0-31.0); Mean Corpuscular Volume 87.9 fl (78.0-98.0); Mean Platelet Volume 8.9 fL (7.4-10.4); Platelet Count 374 10x3/uL (130-400); RBC Distribution Width 16.4 % (11.5-14.5); Red Blood Cell (RBC) Count 3.54 mill/uL (4.70-6.10); White Blood Cell (WBC) Count 5.6 10x3/uL (4.8-10.8)
[2023-08-20 23:40] LABS: ALT (SGPT) 17 U/L (8-55); AST (SGOT) 23 U/L (5-34); Albumin 3.5 g/dL (3.4-4.8); Alkaline Phosphatase 51 U/L (40-110); Anion Gap 17 mmol/L (10-20); BUN (Urea Nitrogen) 18 mg/dL (8.4-25.7); Bilirubin, Total Less than 0.2 mg/dL (0.2-1.2); Calc. Creatinine Clearance 0 mL/min (70-130); Carbon Dioxide 19 mmol/L (23-31); Chloride 106 mmol/L (98-107); Estimated GFR 63; Globulin 3.3 g/dL (2.4-3.5); Glucose 137 mg/dL (80-115); Potassium 3.5 mmol/L (3.5-5.1); Protein, Total 6.8 g/dL (5.8-8.1); Sodium 138 mmol/L (136-145)
[2023-08-20 23:48] LABS: Troponin I 0.136 ng/mL (< 0.028)
[2023-08-21] MEDS ORDERED: Aspirin Chewable 81 MG TAB ONE ×2 (00:24→07:55)
[2023-08-21] MEDS ORDERED: Furosemide 40 MG/4 ML VIAL ONE (00:24)
[2023-08-21] MEDS ORDERED: Acetaminophen 325 MG TAB PO PRN (01:47)
[2023-08-21] MEDS ORDERED: Ondansetron ODT 8 MG TAB PO PRN (01:47)
[2023-08-21] MEDS ORDERED: Nitroglycerin 0.4 MG TAB (25 Tab Bottle) SL SCH (02:00)
[2023-08-21] MEDS ORDERED: Nitroglycerin 0.4 MG TAB (25 Tab Bottle) SL PRN (02:15)
[2023-08-21] MEDS ORDERED: Acetaminophen 325 MG TAB ONE (03:15)
[2023-08-21 03:33] LABS: Troponin I 0.141 ng/mL (< 0.028)
[2023-08-21 04:36] LABS: #Basophils 0.1 thou/uL (0.0-0.2); #Eosinphils 0.3 thou/uL (0.0-0.7); #Monocytes 0.8 thou/uL (0.11-0.59); #Neutrophils 3.3 thou/uL (1.40-6.50); %Basophils 0.8 % (0.0-1.0); %Eosinophils 4.8 % (0.0-10.0); %Lymphocytes 26.5 % (21.0-51.0); %Monocytes 12.7 % (0.0-10.0); %Neutrophils 54.7 % (42.0-75.0); Hematocrit 32.8 % (42.0-52.0); Hemoglobin 10.3 g/dL (14.0-18.0); Mean Corpuscular HGB CONC 31.4 g/dL (32.0-36.0); Mean Corpuscular Hemoglobin 27.1 pg (27.0-31.0); Mean Corpuscular Volume 86.3 fl (78.0-98.0); Platelet Count 419 10x3/uL (130-400); RBC Distribution Width 16.4 % (11.5-14.5); White Blood Cell (WBC) Count 6.1 10x3/uL (4.8-10.8)
[2023-08-21] MEDS ORDERED: Ranolazine 500 MG ER.TAB PO SCH ×3 (05:00→21:00)
[2023-08-21 05:55] LABS: Troponin I 0.165 ng/mL (< 0.028)
[2023-08-21 06:06] LABS: Magnesium 1.9 mg/dL (1.6-2.6)
[2023-08-21 06:13] LABS: ALT (SGPT) 17 U/L (8-55); AST (SGOT) 26 U/L (5-34); Albumin 3.7 g/dL (3.4-4.8); Alkaline Phosphatase 52 U/L (40-110); Anion Gap 15 mmol/L (10-20); BUN (Urea Nitrogen) 18 mg/dL (8.4-25.7); Bilirubin, Total 0.3 mg/dL (0.2-1.2); Calc. Creatinine Clearance 83 mL/min (70-130); Calcium 9.3 mg/dL (7.8-10.44); Carbon Dioxide 24 mmol/L (23-31); Chloride 102 mmol/L (98-107); Estimated GFR 74; Globulin 3.5 g/dL (2.4-3.5); Glucose 105 mg/dL (80-115); Potassium 3.7 mmol/L (3.5-5.1); Protein, Total 7.2 g/dL (5.8-8.1); Sodium 137 mmol/L (136-145)
[2023-08-21] MEDS ORDERED: oxyCODONE 5 MG TAB PO PRN ×2 (06:40→07:00)
[2023-08-21] MEDS ORDERED: metFORMIN 500 MG TAB PO SCH (08:00)
[2023-08-21] MEDS ORDERED: Carvedilol 25 MG TAB PO SCH (08:00)
[2023-08-21] MEDS ORDERED: Icosapent Ethyl 1 GM CAPSULE PO SCH (08:00)
[2023-08-21] MEDS ORDERED: Amlodipine 5 MG TAB ONE (08:04)
[2023-08-21] MEDS ORDERED: Cephalexin 250 MG CAP ONE (08:05)
[2023-08-21] MEDS ORDERED: Clopidogrel Bisulfate 75 MG TAB ONE (08:06)
[2023-08-21] MEDS ORDERED: Furosemide 40 MG TAB ONE (08:07)
[2023-08-21] MEDS ORDERED: Lisinopril 10 MG TAB ONE (08:08)
[2023-08-21] MEDS ORDERED: Venlafaxine HCl XR 150 MG CAP PO SCH (09:00)
[2023-08-21] MEDS ORDERED: Amlodipine 5 MG TAB PO SCH (09:00)
[2023-08-21] MEDS ORDERED: Cephalexin 250 MG CAP PO SCH (09:00)
[2023-08-21] MEDS ORDERED: Empagliflozin 10 MG TAB PO SCH (09:00)
[2023-08-21] MEDS ORDERED: oxyCODONE 5 MG TAB PO SCH (09:00)
[2023-08-21] MEDS ORDERED: Aripiprazole 10 MG TAB PO SCH (09:00)
[2023-08-21] MEDS ORDERED: Gabapentin 400 MG CAP PO SCH (09:00)
[2023-08-21] MEDS ORDERED: Aspirin 81 mg Enteric Coated Tablet PO SCH (09:00)
[2023-08-21] MEDS ORDERED: Lisinopril 10 MG TAB PO SCH (09:00)
[2023-08-21] MEDS ORDERED: Clopidogrel Bisulfate 75 MG TAB PO SCH (09:00)
[2023-08-21] MEDS ORDERED: Spironolactone 25 MG TAB PO SCH (09:00)
[2023-08-21] MEDS ORDERED: Furosemide 20 MG TAB PO SCH (09:00)
[2023-08-21 09:09] VITALS: TEMP 98.6
[2023-08-21] MEDS ORDERED: Furosemide 20 MG/2 ML VIAL ONE (11:18)
[2023-08-21 11:46] VITALS: BP 148/94
[2023-08-21] MEDS ORDERED: Furosemide 20 MG/2 ML VIAL SLOW IVP SCH (12:00)
[2023-08-21] MEDS ORDERED: rOPINIRole HCl 2 MG TAB PO SCH (21:00)
[2023-08-21] MEDS ORDERED: Famotidine 20 MG TAB PO SCH (21:00)
[2023-08-21] MEDS ORDERED: Atorvastatin Calcium 40 MG TAB PO SCH (21:00)
== END 2023-08-21 12:57 | disposition home or self-care (01) ==
LOC: ERS 22:32 → ERHOLD 08-21 00:33
PROVIDERS: ADMIT Family Medicine; ATTEND Family Medicine
DX: R07.89 Other chest pain (principal); I25.10 Atherosclerotic heart disease of native coronary artery without angina pectoris; I25.5 Ischemic cardiomyopathy; I11.0 Hypertensive heart disease with heart failure; I50.22 Chronic systolic (congestive) heart failure; N39.0 Urinary tract infection, site not specified; E78.5 Hyperlipidemia, unspecified; R73.03 Prediabetes; G25.81 Restless legs syndrome; K21.9 Gastro-esophageal reflux disease without esophagitis; D64.9 Anemia, unspecified; Z95.1 Presence of aortocoronary bypass graft; Z95.5 Presence of coronary angioplasty implant and graft; Z88.4 Allergy status to anesthetic agent; Z88.8 Allergy status to other drugs, medicaments and biological substances; Z79.899 Other long term (current) drug therapy; Z79.84 Long term (current) use of oral hypoglycemic drugs; Z79.82 Long term (current) use of aspirin; Z96.641 Presence of right artificial hip joint
CPT/HCPCS: 71045; 80053 ×2; 83735; 83880; 84100; 84484 ×3; 85025 ×2; 93005; 94760; 96372 ×2; 96374; 96376; 99285; G0378; 36415; J1650; J1940